=== PATIENT | male | born 1950 | race Caucasian/White ===

== ENCOUNTER → 2018-11-26 14:54 | Outpatient (POV) | payer MEDICARE, SELFPAY | PROVIDERS: Visit Provider Dermatology | DX: Z00.00 Encounter for general adult medical examination without abnormal findings (principal) ==

== ENCOUNTER → 2019-06-13 13:09 | Outpatient (CLI) | payer MEDICARE, SELFPAY | PROVIDERS: Visit Provider Emergency Medicine | DX: J11.1 Influenza due to unidentified influenza virus with other respiratory manifestations (principal) | CPT/HCPCS: 87275; 87276 ==

== ENCOUNTER → 2020-01-07 09:01 | Outpatient (CLI) | payer MEDICARE, SELFPAY ==
[2020-01-08 23:10] LABS: Covid-19 Nasal PCR Sendout Lex NEGATIVE
== END ==
PROVIDERS: Visit Provider Emergency Medicine
DX: Z03.818 Encounter for observation for suspected exposure to other biological agents ruled out (principal)
CPT/HCPCS: U0004

== ENCOUNTER 2020-01-08 07:44 | Day surgery (SDC) | payer MEDICARE, MEDICAID, SELFPAY ==
[2020-01-06 14:45] VITALS: BMI 32.7
[2020-01-08] VITALS (11 sets, daily range): BP systolic 111–167; BP diastolic 68–85; PULSE 69–87; RESP 18–20; TEMP 36.2–36.6; O2SAT 94–97
[2020-01-08 08:15] LABS: POC Glucose,Bedside 109 (70-110)
--- NOTE | 2020-01-08 08:18 | P.PN_ITS ---
[facility] [place] Anesthesia Checklist - Patient Identification Patient Identification: Arm Band, Verbal (Name & ) - Structural Data Admitted From: Home Planned Operative Procedure/s: egd/colon Consent for Planned Operative Procedure(s) Verified: Yes Verified Documents: History and Physical - NPO Status Verified Time NPO: 00:00 - Additional verifications Patient : No Anesthesia Reactions: No Hx Blood Transfusions: No Blood Transfusion Reaction: No Cephalosporin Allergy: No Previous Colonoscopy: No - Cardiovascular Assessment Heart Sounds: S1 & S2 Pulse Strength: Baseline Pulse Rhythm: Regular Peripheral Edema: No - Airway Assessment C-Spine Mobility Assessed: Yes TMJ Mobility Assessed: Yes Dentition: Good Dentition - Neurological Assessment Level of Consciousness: Awake, Alert, Appropriate Hx Seizures: No Numbness or tingling in extremities: No - Anesthesia Plan Anesthesia Risk discussed: Yes Anesthesia Plan: Verified ASA Class: III Anesthesia Type: MAC [facility] [place] History I have reviewed the patient's past medical history: Yes Medical History: Reports:: Anxiety, Chronic Obstructive Pulmonary Disease (COPD), Coronary Artery Disease, Depression, Diabetes Mellitus Type 2, Hyperlipidemia, Hypertension, Lung Disease Denies:: Cancer, Diabetes Mellitus Type 1, Internal Pacemaker, MRSA, Seizures *Have you ever received a pneumonia vaccine?: Yes *Have you received a flu vaccine this season?: No Anesthesia experience/problems:: none Laterality Cases: Right: Other Other Surgeries: Yes: Cardiac Surgery, Colonoscopy, Coronary Stent, EGD, Other. No: Pacemaker Amputation: Yes Fractures: No - *Social History Smoking Status: Current every day smoker Tobacco Type: cigarettes # Packs/Day (cigarettes): 1 #Yrs smoked (if former smoker): 50 Alcohol Intake: never Substance Use Type: denies use *Occupational Status:: disabled Housing: assisted Household Members: other *Travel in the last 8 weeks: None - Psychiatric History Pschychiatric History:: Reports:: Anxiety, Depression Family Hx:: Coronary Artery Disease
[2020-01-08 08:34] LABS: Coronavirus 19 IgG Antibody Negative (Negative); Coronavirus 19 IgM Antibody Negative (Negative)
--- NOTE | 2020-01-08 11:23 | HMH.SCOPE ---
- Procedure: Date: 01/08/20 Patient Date of :: 1950 Procedure Performed:: Esophagogastroduodenoscopy with biopsy Colonoscopy with polypectomy and biopsy Indications:: History of Dhillon's esophagus Screening colonoscopy Performing Provider:: Alexy Lopez MD Referring Provider:: . Sedation:: Monitored anesthesia care Procedure:: After informed consent was obtained the patient was taken to the endoscopy suite. Sedation ensued after the patient was transferred to the left lateral decubitus position. Pulse, blood pressure, and oxygen saturation were monitored throughout the procedure. The endoscope was advanced beyond the duodenal bulb. Retroflexion within the gastric lumen was accomplished. The gastroscope was carefully removed. Digital rectal exam revealed no significant abnormality. The colonoscope was placed in position. The entire colon was evaluated. The colonoscope was carefully removed and the patient was transferred to recovery in stable condition. Please see findings and specimens below for detail. Findings:: Sliding hiatal hernia Mild streaking gastritis Bowel preparation moderate to poor Severe lack of relaxation Sigmoid diverticulosis Large sessile plaque-like cecal lesion Multiple polyps Specimens:: Antral biopsy Biopsy of gastroesophageal junction Multiple biopsies of large sessile plaque-like cecal lesion 6 mm sessile cecal polyp (snare) Adjacent hepatic flexure polyps (x4) -(snare) Large lobulated polyp at 70 cm (snare) Cluster of polyps between 60 and 70 cm (snare) 3 large adjacent polyps around 55 cm (snare) Adjacent polyps at 45 cm (snare) Polyp at 35 cm (snare) Recommendations:: Follow-up pathology Short-term repeat colonoscopy (by gastroenterology service) versus right hemicolectomy pending results of biopsies of plaque-like cecal lesion. Complications:: No immediate Estimated blood obtained (mL): 1
--- NOTE | 2020-01-08 13:30 | XR_ITS ---
PROCEDURE: XR ACUTE ABDOMEN SERIES CLINICAL INDICATION: abdominal pain s/p colonoscopy Colonoscopy with abdominal pain COMPARISON: No exams were available for comparison FINDINGS: The study is technically limited. The bowel gas pattern is nonspecific with gas-filled loops of small and large bowel. Upright view of the abdomen shows no evidence of pneumoperitoneum. A circular calcific density is present in the right upper quadrant and may be due to artifact. IMPRESSION: Nonspecific bowel gas pattern. No evidence of pneumoperitoneum Dictated by: Juanpablo Farmer MD 01/08/2020 14:20 Juanpablo Farmer MD in [place] 01/08/2020 14:20
--- NOTE | 2020-01-08 13:43 | SUR.PHASEII ---
Report called to Rebecca Geronimo at [facility]. Radiology here to perform flat and upright.
== END 2020-01-08 14:15 | disposition home or self-care (01) ==
LOC: OUTP 07:45
PROVIDERS: PCP Emergency Medicine; Visit Provider Surgery
PROC: 0DJ08ZZ Inspection of Upper Intestinal Tract, Via Natural or Artificial Opening Endoscopic (ICD-10-PCS; CPT 43235; principal; 2020-01-08 08:30)
DX: Z12.11 Encounter for screening for malignant neoplasm of colon (principal); Z87.19 Personal history of other diseases of the digestive system; K29.60 Other gastritis without bleeding; K44.9 Diaphragmatic hernia without obstruction or gangrene; E11.9 Type 2 diabetes mellitus without complications; J44.9 Chronic obstructive pulmonary disease, unspecified; I25.10 Atherosclerotic heart disease of native coronary artery without angina pectoris; F41.9 Anxiety disorder, unspecified; F32.9 Major depressive disorder, single episode, unspecified; Z95.818 Presence of other cardiac implants and grafts; Z72.0 Tobacco use; Z79.899 Other long term (current) drug therapy
CPT/HCPCS: 43239; 45385; 74021; 82962; 86328; 88305

== ENCOUNTER → 2020-02-13 17:18 | Outpatient (CLI) | payer MEDICARE, SELFPAY | PROVIDERS: PCP Emergency Medicine; Visit Provider Emergency Medicine | DX: Z01.89 Encounter for other specified special examinations (principal); Z12.11 Encounter for screening for malignant neoplasm of colon | CPT/HCPCS: U0003 ==

== ENCOUNTER 2020-02-16 08:16 | Day surgery (SDC) | payer MEDICARE, MEDICAID, SELFPAY ==
[2020-02-16] VITALS (7 sets, daily range): BP systolic 117–150; BP diastolic 67–96; PULSE 63–87; RESP 18; TEMP 36.5–36.9; O2SAT 91–98; BMI 33.5
[2020-02-16 08:49] LABS: POC Glucose,Bedside 111 (70-110)
--- NOTE | 2020-02-16 09:04 | HMH.ANESCL ---
[facility] Anesthesia Checklist - Structural Data Admitted From: Home Planned Operative Procedure/s: colonoscopy Consent for Planned Operative Procedure(s) Verified: Yes - Additional verifications Anesthesia Reactions: No Hx Blood Transfusions: No Blood Transfusion Reaction: No - Airway Assessment C-Spine Mobility Assessed: Yes TMJ Mobility Assessed: Yes Dentition: Poor Dentition - Neurological Assessment Level of Consciousness: Awake, Alert, Appropriate - Anesthesia Plan Anesthesia Risk discussed: Yes Anesthesia Plan: Verified ASA Class: III Anesthesia Type: MAC [facility] History I have reviewed the patient's past medical history: Yes Medical History: Reports:: Anxiety, Congestive Heart Failure, Chronic Obstructive Pulmonary Disease (COPD), Coronary Artery Disease, Depression, Diabetes Mellitus Type 2, Hyperlipidemia, Hypertension, Lung Disease Denies:: Cancer, Diabetes Mellitus Type 1, Internal Pacemaker, MRSA, Seizures *Have you ever received a pneumonia vaccine?: No *Have you received a flu vaccine this season?: Yes Other Medical History: Reports: Arthritis. Denies: Blood Transfusion Reaction Anesthesia experience/problems:: none Laterality Cases: Right: Other Other Surgeries: Yes: Cardiac Surgery, Colonoscopy, Coronary Stent, EGD, Other. No: Pacemaker Amputation: Yes (right below knee) Fractures: No - *Social History Last grade of school completed: 9th or 10th Smoking Status: Current every day smoker Tobacco Type: cigarettes # Packs/Day (cigarettes): 1 #Yrs smoked (if former smoker): 50 Alcohol Intake: never Substance Use Type: denies use *Occupational Status:: disabled Housing: house Household Members: other *Travel in the last 8 weeks: None - Psychiatric History Pschychiatric History:: Reports:: Anxiety, Depression Family Hx:: Unable to obtain
--- NOTE | 2020-02-16 09:17 | HMH.PROC ---
[facility] Procedure Note Procedure Note:: Colonoscopy Procedure Report: Colonoscopy with cold snare polypectomy Endoscopist: Emmanuel Babin II, MD Referring physician: Alexy Lopez MD/Devon Poole MD Date of Procedure: February 16, 2020 Equipment: Olympus 180 variable stiffness pediatric colonoscope Sedation: MAC sedation Indication: Mr. Santana is a 69-year-old gentleman who is here for follow-up high risk surveillance colonoscopy. The patient does have a personal history of colon polyps. He did have a colonoscopy by Dr. Alexy Lopez and had a larger adenomatous colon polyps. The patient has no abdominal complaints. Procedure: Prior to the procedure, a history and physical exam was performed, and patient's medications and allergies were reviewed. The risks, benefits and alternatives of the sedation and procedure were discussed with the patient. All questions were answered and informed consent was obtained. The patient was brought to the procedure room. Patient identification and proposed procedure were verified by the physician and the nurse. The patient was placed in a left lateral decubitus position and the scope was passed under direct vision. Throughout the procedure, the patient's blood pressure, pulse, and oxygen saturations were monitored continuously. The colonoscopy was accomplished without difficulty. The patient tolerated the procedure well. Findings: On digital rectal examination there was normal rectal tone. There were no external hemorrhoids. The colonoscope was introduced through the anal canal to the rectum and advanced to the cecum. The ileocecal valve and appendiceal orifice were identified. The scope was advanced a short distance into the ileum which appeared grossly normal. The scope was then withdrawn into the colon. There were 2 large flat polyps in the cecum 1 of which was 14 mm and the other one was at least 35 mm and encompassed the ileocecal valve and over the fold and was difficult to fully visualize because it was behind the haustral fold and a portion of the valve. This was removed in piecemeal. Also, the cecum had a lot of plant residue/solid residue that made it more difficult to visualize and see this large sessile adenomatous polyp. There were 2 additional larger 12 and 15 mm polyps in the transverse colon and a 13 mm polyp in the sigmoid colon. These were also removed via cold snare polypectomy. There was mild melanosis coli. There were scattered diverticuli throughout the descending and sigmoid colon (LEFT colon). The rectum itself was normal. Upon retroflexion within the rectum there were grade 1-2 internal hemorrhoids. The preparation was fair to good throughout with [place] Preparation Score of 7 out of 9. The cecal time was 18 minutes. Impression: 1. Large/advanced sessile adenomatous polyps 2. Left-sided diverticulosis 3. Mild melanosis coli 4. Grade 1-2 internal hemorrhoids Plan: Based upon the patient's age and comorbidities, I am not convinced that he should have subtotal colectomy unless pathology shows more advanced adenomatous changes. I would instead recommend that we repeat surveillance at 3 to 6 months and see if we can completely excised the large sessile cecal polyp and improve the bowel preparation. I will discuss this with the family and possibly correction facility.
== END 2020-02-16 10:50 | disposition home or self-care (01) ==
LOC: OUTP 08:17
PROVIDERS: PCP Emergency Medicine; Visit Provider Internal Medicine Gastroenterology
PROC: 0DJD8ZZ Inspection of Lower Intestinal Tract, Via Natural or Artificial Opening Endoscopic (ICD-10-PCS; CPT 45378; principal; 2020-02-16 09:30)
DX: Z12.11 Encounter for screening for malignant neoplasm of colon (principal); Z86.010 Personal history of colon polyps; K63.5 Polyp of colon; K57.30 Diverticulosis of large intestine without perforation or abscess without bleeding; K64.0 First degree hemorrhoids; K63.89 Other specified diseases of intestine; E11.9 Type 2 diabetes mellitus without complications; I25.10 Atherosclerotic heart disease of native coronary artery without angina pectoris; J44.9 Chronic obstructive pulmonary disease, unspecified; I11.0 Hypertensive heart disease with heart failure; I50.9 Heart failure, unspecified; E78.5 Hyperlipidemia, unspecified
CPT/HCPCS: 45385; 82962; 88305

== ENCOUNTER → 2020-05-24 19:47 | Outpatient (CLI) | payer MEDICARE, MEDICAID, SELFPAY ==
[2020-05-26 12:48] LABS: Covid-19 Nasal PCR Sendout P&C POSITIVE
== END ==
PROVIDERS: PCP Emergency Medicine; Visit Provider Nurse Practitioner Family
DX: U07.1 COVID-19 (principal)
CPT/HCPCS: U0004

== ENCOUNTER → 2020-05-25 02:38 | Outpatient (CLI) | payer MEDICARE, SELFPAY | PROVIDERS: Visit Provider Emergency Medicine | DX: Z11.52 Encounter for screening for COVID-19 (principal) | CPT/HCPCS: U0004 ==

== ENCOUNTER 2020-08-13 07:34 | Day surgery (SDC) | payer MEDICARE, MEDICAID, SELFPAY ==
[2020-08-13 08:10] VITALS: BP 135/80; PULSE 72; RESP 20; TEMP 36.6; O2SAT 93; BMI 32.5
[2020-08-13 08:33] LABS: POC Glucose,Bedside 125 (70-110)
--- NOTE | 2020-08-13 08:45 | HMH.ANESCL ---
[facility] Anesthesia Checklist - Patient Identification Patient Identification: Arm Band - Structural Data Admitted From: Home Planned Operative Procedure/s: colonoscopy Consent for Planned Operative Procedure(s) Verified: Yes Verified Documents: Surgical Consent, History and Physical - NPO Status Verified Time NPO: 00:00 - Additional verifications Anesthesia Reactions: No Hx Blood Transfusions: No Blood Transfusion Reaction: No - Airway Assessment C-Spine Mobility Assessed: Yes (mp2) TMJ Mobility Assessed: Yes Dentition: Edentulous - Neurological Assessment Level of Consciousness: Awake, Alert - Anesthesia Plan Anesthesia Risk discussed: Yes Anesthesia Plan: Verified ASA Class: III Anesthesia Type: MAC [facility] History I have reviewed the patient's past medical history: Yes Medical History: Reports:: Anxiety, Congestive Heart Failure, Chronic Obstructive Pulmonary Disease (COPD), Coronary Artery Disease, Depression, Diabetes Mellitus Type 2, Hyperlipidemia, Hypertension, Lung Disease Denies:: Cancer, Diabetes Mellitus Type 1, Internal Pacemaker, MRSA, Seizures *Have you ever received a pneumonia vaccine?: Yes *Have you received a flu vaccine this season?: Yes Other Medical History: Reports: Arthritis. Denies: Blood Transfusion Reaction Anesthesia experience/problems:: nac Laterality Cases: Right: Other Other Surgeries: Yes: Cardiac Catheterization, Cardiac Surgery, Colonoscopy, Coronary Stent, EGD, Other. No: Pacemaker Amputation: Yes (right below knee) Fractures: No - *Social History Last grade of school completed: 9th or 10th Smoking Status: Current every day smoker Tobacco Type: cigarettes # Packs/Day (cigarettes): 2 #Yrs smoked (if former smoker): 50 Alcohol Intake: former Substance Use Type: denies use *Occupational Status:: disabled Housing: assisted living facility Household Members: caregiver *Travel in the last 8 weeks: None - Psychiatric History Pschychiatric History:: Reports:: Anxiety, Depression Family Hx:: Unable to obtain
[2020-08-13 08:55] VITALS: O2SAT 97
--- NOTE | 2020-08-13 09:23 | P.PCN_ITS ---
[facility] Procedure Note Procedure Note:: Colonoscopy Procedure Report: Colonoscopy with cold snare polypectomy Endoscopist: Emmanuel Babin II, MD Referring physician: Devon Poole MD Date of Procedure: August 13, 2020 Equipment: Olympus 190 variable stiffness pediatric colonoscope Sedation: MAC sedation Indication: Mr. Santana is a 70-year-old gentleman who is here for follow-up surveillance colonoscopy secondary to a personal history of advanced adenomatous colon polyps. He initially had larger polyps identified by Dr. Alexy Lopez M.D. He did have a colonoscopy with al in February 2020. The largest polyp was in the cecum and was approximately 35 or 40 mm and was over the ileocecal valve and difficult to fully visualize. The patient reports no abdominal pain, weight loss, change in his bowel habits or rectal bleeding. He reports no family history of colon cancer. Procedure: Prior to the procedure, a history and physical exam was performed, and patient's medications and allergies were reviewed. The risks, benefits and alternatives of the sedation and procedure were discussed with the patient. All questions were answered and informed consent was obtained. The patient was brought to the procedure room. Patient identification and proposed procedure were verified by the physician and the nurse. The patient was placed in a left lateral decubitus position and the scope was passed under direct vision. Throughout the procedure, the patient's blood pressure, pulse, and oxygen saturations were monitored continuously. The colonoscopy was accomplished without difficulty. The patient tolerated the procedure well. Findings: On digital rectal examination there was normal rectal tone. There were no external hemorrhoids. The colonoscope was introduced through the anal canal to the rectum and advanced to the cecum. The ileocecal valve and appendiceal orifice were identified. The scope was advanced a short distance into the ileum which appeared grossly normal. The scope was then withdrawn into the colon. There was only one very large polyp that encompassed the ileocecal valve and the majority of this polyp was visualized beyond the valve. Due to its large flat sessile nature and behind the fold in the valve, it was deemed to be a 35 to 40 mm advanced adenoma that would be very difficult to remove colonoscopically and present greater risk. There were a couple of sections removed via snare. There were 4 additional diminutive polyps (transverse x2 (4 and 5 mm) and sigmoid x2 (4 and 4 mm)) which were removed via cold snare polypectomy. There were scattered diverticuli throughout the descending and sigmoid colon (LEFT colon). The rectum itself was normal. Upon retroflexion within the rectum there were g rade 1-2 internal hemorrhoids. The preparation was excellent throughout with [place] Preparation Score of 9. The cecal time was 16 minutes. Impression: 1. Large 35 to 40 mm advanced adenomatous sessile polyp involving ileocecal valve and behind (difficult to fully visualize based upon location) 2. 4 additional diminutive colon polyps 3. Left-sided diverticulosis 4. Grade 1-2 internal hemorrhoids Plan: Based upon the size and nature of the large cecal adenomatous polyp and its advanced nature and behind fold, he will likely need resection. I would consider colorectal surgery versus attempt at endoscopic mucosal dissection (Elizabeth Walters MD) at the [place]. I will discuss with the patient and family.
[2020-08-13 09:25] VITALS: BP 146/86; PULSE 93; RESP 18; TEMP 36.8; O2SAT 92
[2020-08-13 09:35] VITALS: BP 128/84; PULSE 81; RESP 18; O2SAT 96
--- NOTE | 2020-08-13 09:35 | SUR.PHASEII ---
PT WITH SLEEP APNEA, REQUIRED O2 @ 5L/NC TO MAINTAIN SAATS. WHEN AWAKENED PT ABLE TO BREATH FULLY AND SATS MAINTAINED ON RA.
[2020-08-13 09:45] VITALS: BP 150/96; PULSE 74; RESP 18; O2SAT 93
--- NOTE | 2020-08-13 09:55 | SUR.PHASEII ---
REPORT CALLED TO VENUS MCLEOD AT [facility], VERBALIZED UNDERSTANDING OF ALL INFO,
[2020-08-13 10:15] VITALS: BP 159/86; PULSE 69; RESP 18; O2SAT 94
--- NOTE | 2020-08-13 10:15 | SUR.PHASEII ---
DR WATSON IS TO DECIDE POC AND SET UP CONSULT AT . OFFICE TO CALL [place] WHEN DECISION MADE.
== END 2020-08-13 10:18 | disposition home or self-care (01) ==
LOC: OUTP 07:36
PROVIDERS: PCP Emergency Medicine; Visit Provider Internal Medicine Gastroenterology
PROC: 0DJD8ZZ Inspection of Lower Intestinal Tract, Via Natural or Artificial Opening Endoscopic (ICD-10-PCS; CPT 45378; principal; 2020-08-13 09:00)
DX: Z12.11 Encounter for screening for malignant neoplasm of colon (principal); Z86.010 Personal history of colon polyps; K63.5 Polyp of colon; K57.30 Diverticulosis of large intestine without perforation or abscess without bleeding; K64.0 First degree hemorrhoids; E11.9 Type 2 diabetes mellitus without complications; F41.9 Anxiety disorder, unspecified; I50.9 Heart failure, unspecified; I11.0 Hypertensive heart disease with heart failure; J44.9 Chronic obstructive pulmonary disease, unspecified; I25.10 Atherosclerotic heart disease of native coronary artery without angina pectoris; F32.9 Major depressive disorder, single episode, unspecified
CPT/HCPCS: 45385; 82962; 88305

== ENCOUNTER → 2020-09-28 14:25 | Outpatient (CLI) | payer MEDICARE, MEDICAID, SELFPAY ==
[2020-09-28 14:52] LABS: Hemoglobin A1C 6.4 % (4.0-6.0)
== END ==
PROVIDERS: Visit Provider Emergency Medicine
DX: E11.9 Type 2 diabetes mellitus without complications (principal); Z79.84 Long term (current) use of oral hypoglycemic drugs
CPT/HCPCS: 36415; 83036

== ENCOUNTER → 2020-11-18 12:51 | Outpatient (CLI) | payer MEDICARE, MEDICAID, SELFPAY ==
[2020-11-18 12:53] LABS: Adenovirus F 40/41, stool Not Detected (NotDetected); Astrovirus Not Detected (NotDetected); Campylobacter Not Detected (NotDetected); Clostridium Difficile A/B, PCR Not Detected (NotDetected); Cryptosporidium Not Detected (NotDetected); Cyclospora Cayetanesis Not Detected (NotDetected); Entamoeba histolytica Not Detected (NotDetected); Enteroaggregative E coli Not Detected (NotDetected); Enteropathogenic E coli Not Detected (NotDetected); Enterotoxigenic E coli Not Detected (NotDetected); Giardia lamblia Not Detected (NotDetected); Norovirus Not Detected (NotDetected); Plesimonas Shigalloides, PCR Not Detected (NotDetected); Rotavirus A Not Detected (NotDetected); Salmonella, PCR Not Detected (NotDetected); Sapovirus Not Detected (NotDetected); Shiga-like toxin E coli Not Detected (NotDetected); Shigella Enterovasive E coli Not Detected (NotDetected); Vibrio Cholerae Not Detected (NotDetected); Vibrio, PCR Not Detected (NotDetected); Yersinia Entercolitica, PCR Not Detected (NotDetected)
== END ==
PROVIDERS: Visit Provider Emergency Medicine
DX: R19.7 Diarrhea, unspecified (principal)
CPT/HCPCS: 87506

== ENCOUNTER → 2020-11-24 18:17 | Outpatient (CLI) | payer MEDICARE, MEDICAID, SELFPAY | PROVIDERS: Visit Provider Emergency Medicine | DX: B96.89 Other specified bacterial agents as the cause of diseases classified elsewhere (principal); J41.8 Mixed simple and mucopurulent chronic bronchitis; F17.200 Nicotine dependence, unspecified, uncomplicated | CPT/HCPCS: 87070; 87077; 87186; 87205 ==

== ENCOUNTER → 2021-05-18 09:15 | Outpatient (CLI) | payer MEDICARE, MEDICAID, SELFPAY ==
--- NOTE | 2021-05-18 09:25 | XR_ITS ---
FINAL REPORT CLINICAL HISTORY: [facility]PA COMPARISON: 04/24/2018 FINDINGS: TWO VIEWS OF THE CHEST The heart is normal in size. The mediastinum is unremarkable. There are new, right greater than left pulmonary opacities consistent with bilateral pneumonia. There is no pneumothorax. IMPRESSION: Bilateral pneumonia. Reviewed, Interpreted and Dictated by Farhad Barnes III, MD Transcribed by Bri Rivera Authenticated by Farhad Barnes III, MD on 05/18/2021 10:23:47 AM [facility]
== END ==
PROVIDERS: PCP Emergency Medicine; Visit Provider Nurse Practitioner Family
DX: R06.02 Shortness of breath (principal)
CPT/HCPCS: 71046

== ENCOUNTER 2021-05-28 18:42 | Inpatient (IN) | payer MEDICARE, MEDICAID, SELFPAY ==
[2021-05-28] VITALS (9 sets, daily range): BP systolic 113–165; BP diastolic 62–91; PULSE 72–97; RESP 15–20; TEMP 37–37.1; O2SAT 94–98; BMI 25.2; BMI 25.1; BMI 27.7
--- NOTE | 2021-05-28 19:00 | CT_ITS ---
PROCEDURE INFORMATION: Exam: CT Angiography Head With Contrast, Arteriography Exam date and time: 05/28/2021 7:00 PM Age: 71 years old Clinical indication: Numbness and weakness; Additional info: Right ue numbness and weakness TECHNIQUE: Imaging protocol: Computed tomography angiography of the head with contrast. Exam focused on the arteries. 3D rendering (Not supervised by radiologist): MIP and/or 3D reconstructed images were created by the technologist. Radiation optimization: All CT scans at this facility use at least one of these dose optimization techniques: automated exposure control; mA and/or kV adjustment per patient size (includes targeted exams where dose is matched to clinical indication); or iterative reconstruction. Contrast material: ISOVUE 370; Contrast volume: 100 ml; Contrast route: INTRAVENOUS (IV); COMPARISON: CT HEAD/BRAIN WO CON 05/28/2021 8:07 PM FINDINGS: ANTERIOR CIRCULATION: Intracranial INTERNAL CAROTID arteries: Severe predominantly calcific plaque in the mid-distal ICA with chronic narrowing of the internal carotid arteries without acute flow-limiting stenosis. . MIDDLE cerebral arteries: M1, M2 and their distal visualized branches are without flow limiting stenosis. . ANTERIOR cerebral arteries: A1, A2 and their distal visualized branches are without flow limiting stenosis. Anterior communicating artery is unremarkable. . POSTERIOR CIRCULATION: VERTEBRAL arteries: Intracranial vertebral arteries and their visualized branches are without flow limiting stenosis. . BASILAR artery: The basilar artery and its visualized proximal branches are without flow limiting stenosis. . POSTERIOR cerebral arteries: P1, P2 and their distal visualized branches are without flow limiting stenosis. IMPRESSION: 1. NO acute flow-limiting stenosis or aneurysm of the CENTRAL/major intracranial arteries. 2. METASTATIC BRAIN DISEASE on unenhanced CT of the brain for which MRI of the brain without and with contrast is recommended. 3. MARKED PAUCITY OF THE M3 AND CORTICAL BRANCHES at the site of vasogenic edema in the RIGHT posterior temporoparietal and LEFT high frontoparietal lobes. THIS REPORT CONTAINS FINDINGS THAT MAY BE CRITICAL TO PATIENT CARE. The findings were acknowledged to be understood at 9:02 PM EST on 05/28/2021, by Dr. Poole
--- NOTE | 2021-05-28 19:01 | CT_ITS ---
PROCEDURE INFORMATION: Exam: CT Angiography Neck With Contrast Exam date and time: 05/28/2021 7:01 PM Age: 71 years old Clinical indication: Numbness and weakness; Additional info: Right ue weakness/numbness TECHNIQUE: Imaging protocol: Computed tomography angiography of the neck with contrast. 3D rendering (Not supervised by radiologist): MIP and/or 3D reconstructed images were created by the technologist. Radiation optimization: All CT scans at this facility use at least one of these dose optimization techniques: automated exposure control; mA and/or kV adjustment per patient size (includes targeted exams where dose is matched to clinical indication); or iterative reconstruction. Contrast material: ISOVUE 370; Contrast volume: 100 ml; Contrast route: INTRAVENOUS (IV); COMPARISON: US ARTERIAL CAROTID 02/13/2017 8:36 AM FINDINGS: THORACIC VESSELS: Atherosclerotic disease of the visualized aortic arch without aortic aneurysm or dissection. Calcific/noncalcific plaque without significant narrowing of the origin of the neck vessels. . CAROTID VESSELS: Common carotid arteries: Common carotid arteries are without flow limiting stenosis. . Cervical internal CAROTID arteries: Predominantly calcific plaque at the carotid bifurcation extending to the carotid bulb with 70-80% narrowing of the RIGHT carotid bulb and greater than 95% focal narrowing at the origin of the LEFT internal carotid artery. No evidence of an aneurysm or a dissection. . VERTEBRAL VESSELS: VERTEBRAL arteries: Cervical vertebral arteries are without flow limiting stenosis. . OTHER STRUCTURES: Incompletely visualized moderate pericardial effusion. Malignant RIGHT hilar lung mass, enlarged metastatic mediastinal/hilar lymph nodes, post obstructive atelectasis, consolidation in the RIGHT lung and RIGHT hemothorax. Underlying severe emphysema and scarring in the lungs. T5 vertebral compression fracture-pathological versus insufficiency. IMPRESSION: 1. Greater than 95% focal narrowing at the origin of the LEFT internal carotid artery due to complex calcific and noncalcific plaque. 2. 70-80% focal chronic narrowing of the RIGHT carotid bulb due to calcific plaque. 3. NO acute flow-limiting stenosis of the vertebral arteries in the neck. 4. Incompletely visualized MODERATE PERICARDIAL EFFUSION. 5. MALIGNANT RIGHT HILAR LUNG MASS, enlarged metastatic mediastinal/hilar lymph nodes, post obstructive atelectasis, consolidation in the RIGHT lung and RIGHT hemothorax. 6. T5 vertebral compression fracture-pathological versus insufficiency. REFERENCES: NASCET CRITERIA. The degree of internal carotid artery stenosis is based on NASCET criteria. Normal is no stenosis. Mild is less than 50% stenosis. Moderate is 50-69% stenosis. Severe is 70% to 99% stenosis. Total occlusion is no detectable patent lumen.
--- NOTE | 2021-05-28 19:01 | CT_ITS ---
PROCEDURE INFORMATION: Exam: CT Head Without Contrast Exam date and time: 05/28/2021 7:01 PM Age: 71 years old Clinical indication: Weakness, extremity; Right; Additional info: Right ue weakness/numbness TECHNIQUE: Imaging protocol: Computed tomography of the head without contrast. Radiation optimization: All CT scans at this facility use at least one of these dose optimization techniques: automated exposure control; mA and/or kV adjustment per patient size (includes targeted exams where dose is matched to clinical indication); or iterative reconstruction. Other technique: STROKE PROTOCOL was implemented. COMPARISON: No relevant prior studies available. FINDINGS: Vasogenic edema in the RIGHT posterior temporoparietal and LEFT high frontoparietal subcortical white matter with a isodense nodule measuring approximately 1.6 cm on the LEFT and questionable 1.7 cm nodule on the RIGHT. Mild mass effect with attenuation of adjacent sulci without midline shift. . Questionable similar changes in the LEFT inferior cerebellar hemisphere suboptimally visualized due to streak artifact. Underlying chronic microvascular ischemic disease and generalized atrophy. . Rest of the brain parenchyma, ventricles, sulci and basal cisterns are unremarkable. No significant mucoperiosteal thickening in the visualized paranasal sinuses. No mastoid effusion. Macro deviated LEFT. IMPRESSION: Findings consistent with METASTATIC DISEASE. Recommend contrast CT or MRI for further evaluation. ASSESSMENT: ASPECTS ([place] Stroke Program Early CT Score) is 10.
--- NOTE | 2021-05-28 19:05 | HMH.EDGENADL ---
ED Disposition Clinical Impression: Metastatic lung cancer (metastasis from lung to other site), Brain metastases, Carotid stenosis, bilateral, Pericardial effusion Disposition: Admitted As Inpatient Condition on Discharge: Fair - Critical Care Critical Care Time: No Attestation: On 05/28/21, the high probability of a clinically significant, sudden or life threatening deterioration of the following system(s) required my full and direct attention, intervention and personal management. The time I documented below is in addition to time spent performing reported procedures but includes the following listed in this critical care notation. Medical Decision Making - Juan Inquiry Pt receiving controlled substance: No Vital Signs: 05/28/21 18:57 Temperature 98.6 F Temperature Source Oral Pulse Rate [Left Radial] 94 H Respiratory Rate 20 Blood Pressure [Right Arm] 131/85 Blood Pressure Mean [Right Arm] 100 Blood Pressure Source [Right Arm] Automatic Cuff Blood Pressure Position [Right Arm] Sitting 02 Sat by Pulse Oximetry 95 Oxygen Delivery Method Room Air - Lab Data Lab Results 05/28/21 19:00: WBC 20.5 H*, RBC 4.79, Hgb 13.8 L, Hct 42.5, MCV 88.7, MCH 28.8, MCHC 32.5, RDW 15.2, Plt Count 337, MPV 9.1, Neut % (Auto) 78.8, Lymph % (Auto) 9.7 L, Luce % (Auto) 9.2, Eos % (Auto) 1.9, Baso % (Auto) 0.5, Neut # (Auto) 16.2 H, Lymph # (Auto) 2.0, Luce # (Auto) 1.9 H, Eos # (Auto) 0.4, Baso # (Auto) 0.1, Total Counted 100, Neutrophils % (Manual) 82 H, Band Neutrophils % 5.0, Lymphocytes % (Manual) 10, Monocytes % (Manual) 2, Eosinophils % (Manual) 1, Platelet Estimate Normal, RBC Morphology Normal 05/28/21 19:00: PT 12.4, INR 1.11 H, APTT 27.9 05/28/21 19:00: Sodium 131 L, Potassium 4.1, Chloride 99, Carbon Dioxide 19 L, Anion Gap 17.1 H, BUN 18, Creatinine 0.90, Estimated Creat Clear 76, Estimated GFR 83, Est GFR ( Amer) 100, Glucose 125 H, Calcium 9.0, Total Bilirubin 0.6, AST 21, ALT 19, Alkaline Phosphatase 63, Troponin I 0.02, Total Protein 7.3, Albumin 3.7, Globulin 3.6 H, Albumin/Globulin Ratio 1.0 L 05/28/21 19:07: POC Glucose 128 H 05/28/21 19:42: SARS-CoV-2 (PCR) Not detected, Influenza A Untype (PCR) Not detected, Influenza Type B (PCR) Not detected 05/28/21 20:45: Urine Color Yellow, Urine Appearance Clear, Urine pH 5.5, Ur Specific [place] 1.015, Urine Protein 1+, Urine Glucose (UA) Negative, Urine Ketones 1+, Urine Blood Negative, Urine Nitrate Negative, Urine Bilirubin 1+ A, Urine Urobilinogen 1.0, Ur Leukocyte Esterase Negative, Urine RBC Occasional, Urine WBC Occasional, Ur Squamous Epith Cells None, Urine Bacteria Trace 05/28/21 20:50: Lactate 1.5 Result diagrams: 05/28/21 19:00 05/28/21 19:00 Orders (Tests/Meds): ED MEDICATIONS Generic Name Dose Route Start Last Admin Trade Name Aminata PRN Reason Stop Dose Admin Miscellaneous 1 each 05/28/21 19:00 Consider Pt For Statin At Discharge-Stroke NOTAPPLIC 06/27/21 18:59 NEEDED PRN Reminder for med @discharge Sodium Chloride 10 ml 05/28/21 20:48 05/28/21 20:49 Sodium Chloride 0.9% 10ml Syr (Rad Only) IV 06/27/21 20:47 10 ml NEEDED PRN Administration Maintain IV Site Discontinued Medications Generic Name Dose Route Start Last Admin Trade Name Aminata PRN Reason Stop Dose Admin Dexamethasone Sodium Phosphate 10 mg 05/28/21 21:05 05/28/21 21:48 Dexamethasone 4mg/Ml 5ml Mdv IV 05/28/21 21:06 10 mg ONCE ONE Administration Iopamidol 100 ml 05/28/21 20:48 05/28/21 20:49 Iopamidol-370 (76%);100ml Bottle IV 05/28/21 20:49 100 ml ONCE ONE Administration Sodium Chloride 40 ml 05/28/21 20:48 05/28/21 20:49 0.9 % Sodium Chloride 50 Ml Vial IV 05/28/21 20:49 40 ml ONCE ONE Administration ORDERS Category Date Time Status Troponin I Q3H Lab 05/29/21 01:15 Ordered Blood Culture Stat Micro 05/28/21 20:50 Received Medical Decision Narrative: ddx includes but not limited to acs, lv
[2021-05-28 19:14] LABS: POC Glucose,Bedside 128 (70-110)
[2021-05-28 19:23] LABS: Basophils # 0.1 K/mm3 (0-0.2); Basophils % 0.5 % (0.1-2.0); Eosinophils # 0.4 K/mm3 (0.0-0.4); Eosinophils % 1.9 % (0.1-12.0); Hematocrit 42.5 % (42.0-52.0); Hemoglobin 13.8 g/dL (14.1-18.0); Lymphocytes % 9.7 % (10-50); Mean Corpuscular HGB Conc 32.5 g/dL (31.8-35.4); Mean Corpuscular Hemoglobin 28.8 pg (27.0-31.2); Mean Corpuscular Volume 88.7 fl (80-94); Mean Platelet Volume 9.1 fl (7.4-10.4); Monocytes # 1.9 K/mm3 (0.1-1.0); Monocytes % 9.2 % (1.7-9.3); Neutrophils # 16.2 K/mm3 (1.8-7.8); Neutrophils % 78.8 % (37.0-80.0); Platelet Count 337 K/mm3 (142-424); Red Blood Count 4.79 M/mm3 (4.60-6.20); Red Cell Distribution Width 15.2 % (11.5-17.5); White Blood Count 20.5 K/mm3 (4.8-10.8)
[2021-05-28 19:25] LABS: Chloride 99 mmol/L (98-107); Potassium 4.1 mmoL/L (3.5-5.1); Sodium 131 mmol/L (136-145)
[2021-05-28 19:27] LABS: Alanine Aminotransferase 19 U/L (12-78); Aspartate Amino Transferase 21 U/L (17-59); Bilirubin,Total 0.6 mg/dl (0.2-1.3); Blood Urea Nitrogen 18 mg/dl (9-20); Creatinine Clearance Estimated 76 mL/min (50-200); Estimated Glomerular Filt Rate 83 ml/min (>60); GFR (African American) 100 ML/MIN (>60); MANUAL DIFFERENTIAL MANUAL DIFFERENTIAL (MANUAL DIFF)
[2021-05-28 19:28] LABS: Albumin Level 3.7 g/dl (3.5-5.0); Alkaline Phosphatase 63 U/L (38-126); Anion Gap 17.1 mEq/L (5-15); Carbon Dioxide 19 mmol/L (22.0-30.0); Globulin 3.6 g/dL (1.3-3.2); Glucose 125 mg/dl (74-100); Total Protein,Serum 7.3 g/dl (6.3-8.2)
[2021-05-28 19:31] LABS: Activated Partial Thrombo Time 27.9 seconds (22.8-30.6); INR 1.11 (0.9-1.1); Prothrombin Time 12.4 seconds (10.1-12.5)
[2021-05-28 19:40] LABS: Troponin I 0.02 ng/ml (0.00-0.034)
[2021-05-28 19:52] LABS: Coronavirus 19, PCR Not Detected (NotDetected); Influenza A, PCR Not Detected (NotDetected); Influenza B, PCR Not Detected (NotDetected)
[2021-05-28 20:16] LABS: Eosinophils % 1 % (0-3); Lymphocytes % 10 % (10-50); Monocytes % 2 % (2-9); Neutrophils % 82 % (42-76); Platelet Estimate Normal; RBC Morphology Normal; Total Cells Counted 100
--- NOTE | 2021-05-28 20:49 | XR_ITS ---
PROCEDURE INFORMATION: Exam: XR Chest Exam date and time: 05/28/2021 8:49 PM Age: 71 years old Clinical indication: Shortness of breath; Patient HX: HX lung cancer; Additional info: SOB TECHNIQUE: Imaging protocol: XR of the chest. Views: 1 view. COMPARISON: CR XR CHEST 2V 05/18/2021 9:34 AM FINDINGS: Lungs: Subpleural airspace opacity in the RIGHT lower lobe consistent with patient's history of lung malignancy. Also noted are patchy areas of airspace opacities in the LEFT lower lobe and RIGHT lung apex. Severe emphysema with bullous changes in the LEFT upper lobe. Pleural spaces: Small to moderate RIGHT pleural effusion. Heart/Mediastinum: Cardiomegaly with pulmonary vascular congestion. Bones/joints: Chronic degenerative changes in the visualized spine and shoulder joint(s). IMPRESSION: 1. Subpleural airspace opacity in the RIGHT lower lobe consistent with patient's history of lung malignancy. 2. Also noted are patchy areas of airspace opacities in the LEFT lower lobe and RIGHT lung apex. 3. Severe emphysema with bullous changes in the LEFT upper lobe. 4. Small to moderate RIGHT pleural effusion.
[2021-05-28 21:03] LABS: Microscopic, Urine URINE MICROSCOPIC (MICROSCOPIC)
--- NOTE | 2021-05-28 21:13 | PC.NURSE ---
Dr. Alonso s[facility]w [facility]
[2021-05-28 21:24] LABS: Appearance,Urine CLEAR (Clear); Blood, Urine Negative (Negative); Color,Urine YELLOW (Yellow); Glucose,Urine (UA) Negative (Negative); Ketones,Urine 1+ (Negative); Leukocyte Esterase,Urine Negative (Negative); Nitrate,Urine Negative (Negative); PH,Urine 5.5 (5.0-8.5); Protein,Urine 1+ (Negative); Specific Gravity, Urine 1.015 (1.005-1.030)
--- NOTE | 2021-05-28 21:26 | PC.NURSE ---
dr brito on phone with dr haskins. pt is listed to waiting list
[2021-05-28 21:27] LABS: Lactic Acid 1.5 mmol/L (0.7-2.1)
[2021-05-28 21:33] LABS: Bilirubin,Urine 1+ (Negative)
[2021-05-28 21:35] LABS: Bacteria,Urine Trace /lpf; RBC,Urine Occasional #/hpf (0-3); WBC,Urine Occasional #/hpf (0-3)
--- NOTE | 2021-05-28 21:55 | PC.NURSE ---
Dr. Poole s/w 3 family members and POA regarding pt's dx and condition. Discussed code status. At this time family is opting for full code. Dr. Poole with this RN spent 20 min discussing pt with family.
[2021-05-29] VITALS: BP 132/85; PULSE 90; RESP 24; TEMP 36.3; O2SAT 95; BMI 27.0
[2021-05-29 04:00] VITALS: BP 117/72; PULSE 90; RESP 22; TEMP 36.4; O2SAT 95
[2021-05-29 05:40] LABS: POC Glucose,Bedside 169 (70-110)
[2021-05-29 06:33] LABS: Basophils % 0.2 % (0.1-2.0); Eosinophils % 0.1 % (0.1-12.0); Hematocrit 40.7 % (42.0-52.0); Lymphocytes # 0.8 K/mm3 (0.7-4.5); Lymphocytes % 5.6 % (10-50); Mean Corpuscular HGB Conc 31.9 g/dL (31.8-35.4); Mean Corpuscular Hemoglobin 28.4 pg (27.0-31.2); Mean Corpuscular Volume 89.1 fl (80-94); Mean Platelet Volume 8.8 fl (7.4-10.4); Monocytes # 0.5 K/mm3 (0.1-1.0); Monocytes % 3.3 % (1.7-9.3); Neutrophils # 13.3 K/mm3 (1.8-7.8); Neutrophils % 90.8 % (37.0-80.0); Platelet Count 271 K/mm3 (142-424); Red Blood Count 4.56 M/mm3 (4.60-6.20); White Blood Count 14.6 K/mm3 (4.8-10.8)
[2021-05-29 06:36] LABS: MANUAL DIFFERENTIAL MANUAL DIFFERENTIAL (MANUAL DIFF)
[2021-05-29 06:52] LABS: Anion Gap 16.2 mEq/L (5-15); Blood Urea Nitrogen 17 mg/dl (9-20); Calcium 8.8 mg/dl (8.4-10.2); Carbon Dioxide 20 mmol/L (22.0-30.0); Chloride 100 mmol/L (98-107); Creatinine Clearance Estimated 82 mL/min (50-200); Estimated Glomerular Filt Rate 111 ml/min (>60); GFR (African American) 134 ML/MIN (>60); Glucose 157 mg/dl (74-100); Magnesium 1.4 mg/dl (1.6-2.3); Potassium 4.2 mmoL/L (3.5-5.1); Sodium 132 mmol/L (136-145)
[2021-05-29 07:58] VITALS: BP 132/91; PULSE 96; RESP 20; TEMP 36.4; O2SAT 96
[2021-05-29 08:43] LABS: Lymphocytes % 5 % (10-50); Monocytes % 3 % (2-9); Neutrophils % 92 % (42-76); Platelet Estimate Normal; RBC Morphology Normal; Total Cells Counted 100
--- NOTE | 2021-05-29 09:10 | HMH.HPDC ---
General - General Admission date:: 05/28/21 Discharge date: 05/29/21 *Admission Date: 05/28/21 *Chief complaint: possible cva *History of present illness: this pt who lives at home and had prev been in [facility] with hx of lung cancer in past - pt with altered mental status and dec use of rt upper ext - pt has not felt well over the last week with dec activity and po intake -pt was seen in the ed -71 yo male w/ hx CAD s/p PCI, carotid artery stenosis, DM, HTN, HLD, right BKA, schizophrenia, dementia, presents for right sided weakness and numbness. LKN 1100 on 05/28/21. Limited history from patient 2/ AMS. Denies any pain. Motions that right hand is weak. Reportedly EMS called to patient's residence after ex- noticed patient right arm weak and numb. No other family at bedside to provide further history. Kiera (ex- of pt) called but no answer on phone. Jhonatan (daughter of Kiera) said patient facial droop is new and right arm weakness is new. No history of strokes dx includes but not limited to acs, lvo, ich, metastasis. presents with altered mental status, rue motor/sensory deficit. protecting airway. wbc 20k. ct head shows bilateral cerebral nodules w/ vasogenic edema concerning for metastatic lesions. no midline shift. cta h/n with >95% narrowing of left carotid artery, 70-80% narrowing of right carotid artery. given 10 mg decadron in ed. cxr shows findings consistent with right lung malignancy. spoke with jhonatan (daughter of exwife) and kiera (exwife of pt who is primary director machine of pt) who gave me Rudy's contact info (brother of pt) who i tried to reach out to but did not answer telephone. jhonatan and kiera en route to [facility] ed. spoke with joanne duarte at regarding transfer for metastatic cancer evaluation and treatment, he accepted patient but on divert, no beds. plan to admit patient to [facility] pending availability for transfer to . spoke with dr. fitzpatrick and pt admitted in stable condition. pt admitted for iv steroids and supportive care - discussed with family- [facility] History I have reviewed the patient's past medical history: Yes Medical History: Reports:: Anxiety, Cancer (lung), Congestive Heart Failure, Chronic Obstructive Pulmonary Disease (COPD), Coronary Artery Disease, Depression, Diabetes Mellitus Type 2, Hyperlipidemia, Hypertension, Lung Disease Denies:: Diabetes Mellitus Type 1, Internal Pacemaker, MRSA, Seizures *Have you ever received a pneumonia vaccine?: No *Have you received a flu vaccine this season?: No Other Medical History: Reports: Arthritis. Denies: Blood Transfusion Reaction Laterality Cases: Right: Other Other Surgeries: Yes: Cardiac Catheterization, Cardiac Surgery, Colonoscopy, Coronary Stent, EGD, Other. No: Pacemaker Amputation: Yes (right below knee) Fractures: No - *Social History Smoking Status: Former smoker Tobacco Type: cigarettes # Packs/Day (cigarettes): 1 #Yrs smoked (if former smoker): 50 Alcohol Intake: never Substance Use Type: denies use *Occupational Status:: disabled Housing: house Household Members: children *Travel in the last 8 weeks: None - Psychiatric History Pschychiatric History:: Reports:: Anxiety, Depression Family Hx:: Coronary Artery Disease Review of Systems - Review of Systems Review of systems:: other (obtained from family) - Constitutional Denies fever(s) - Eyes Denies change in vision - ENT Denies headache(s) - *Cardiovascular Denies chest pain at rest, Denies shortness of breath - *Respiratory Denies cough - *Gastrointestinal Denies abdominal pain - *Genitourinary Denies blood in urine - *Musculoskeletal Denies back pain - Integumentary/Breasts Denies rash - *Neurologic Reports localized weakness, Reports other (dec use rt upper ext ), Denies seizure-like activity - Psychiatric Reports behavioral changes Exam Vital signs and Labs for Last 24 Hours: Temp Pulse Resp BP Pulse Ox 97.5 F L 96 H 20 132/91 H 96 05/29/21 07:58
[2021-05-29 11:31] LABS: POC Glucose,Bedside 132 (70-110)
[2021-05-29 11:35] VITALS: BP 117/87; PULSE 89; RESP 25; TEMP 36.4; O2SAT 94
--- NOTE | 2021-05-29 13:31 | PC.NURSE ---
PT IS SITTING UP IN THE BED WITH FAMILY AT BEDSIDE. ALERT TO SELF ONLY. PT TRIES TO COMMUNICATE HOWEVER SPEECH IS VERY GARBLES
--- NOTE | 2021-05-29 13:37 | PC.NURSE ---
PT IS SITTING UP IN THE BED WITH FAMILY AT BEDSIDE. ALERT TO SELF ONLY. PT TRIES TO COMMUNICATE HOWEVER SPEECH IS VERY GARBLED AND DIFFICULT TO UNDERSTAND. PT WAS MEDICATED PER MAR WITH ATIVAN AT 1255 FOR AGITATION. LUNG SOUNDS CLEAR. ABDOMEN SOFT/NON TENDER WITH ACTIVE BOWEL SOUNDS. RT SIDED FACIAL DROOP NOTED. SEVERE RT SIDED WEAKNESS. RBKA. ACCORDING TO FAMILY AT BEDSIDE PT IS USUALLY VERY TALKATIVE AND INDEPENDENT AT HOME. WILL CONTINUE TO MONITOR.
--- NOTE | 2021-05-29 14:31 | HMH.PHAVTE ---
[facility] Pharmacy VTE Monitoring - Patient Demographics Admission date: 05/28/21 Report Date: 05/29/21 Time: 14:31 Allergies/Adverse Reactions: Patient Allergies No Known Allergies Allergy (Verified 05/18/21 08:41) Height: 1.8 m Weight: 87.589 kg Patient Problems: Current Active Problems Metastatic lung cancer (metastasis from lung to other site) (Acute) Brain metastases (Acute) Carotid stenosis, bilateral (Acute) Pericardial effusion (Acute) History of right below knee amputation (Chronic) Diabetes type 2, controlled (Chronic) Schizophrenia (Chronic) Chronic obstruct airways disease (Chronic) Tobacco dependence syndrome (Chronic) Carotid artery stenosis (Chronic) Hyperlipidemia (Chronic) Coronary arteriosclerosis (Chronic) - VTE Risk Labs: VTE Related Lab Results Hgb 13.0 g/dL (14.1-18.0) L 05/29/21 05:20 Hct 40.7 % (42.0-52.0) L 05/29/21 05:20 Plt Count 271 K/mm3 (142-424) 05/29/21 05:20 PT 12.4 seconds (10.1-12.5) 05/28/21 19:00 INR 1.11 (0.9-1.1) H 05/28/21 19:00 APTT 27.9 seconds (22.8-30.6) 05/28/21 19:00 BUN 17 mg/dl (9-20) 05/29/21 05:20 Creatinine 0.70 mg/dl (0.66-1.25) D 05/29/21 05:20 Estimated Creat Clear 82 mL/min (50-200) 05/29/21 05:20 - Prophylaxis VTE Prophylaxis Ordered?: Yes Types of VTE Prophylaxis: TEDS Knee High, Pharmacological Location of Applied Device: Bilateral Lower Extremeties Pharmacologic Type: Enoxaparin
[2021-05-29 16:00] VITALS: BP 141/98; PULSE 111; RESP 24; TEMP 36.4; O2SAT 97
[2021-05-29 16:44] LABS: POC Glucose,Bedside 108 (70-110)
[2021-05-29 20:00] VITALS: BP 145/91; PULSE 88; RESP 25; TEMP 36.6; O2SAT 94; O2SAT 95
[2021-05-29 20:19] LABS: POC Glucose,Bedside 132 (70-110)
[2021-05-30] VITALS (10 sets, daily range): BP systolic 109–149; BP diastolic 75–93; PULSE 70–110; RESP 20–25; TEMP 36.1–36.5; O2SAT 93–98; BMI 26.9; BMI 26.8
[2021-05-30 05:28] LABS: POC Glucose,Bedside 125 (70-110)
--- NOTE | 2021-05-30 09:00 | CT_ITS ---
FINAL REPORT TECHNIQUE: Axial CT images were performed through the head. Coronal reformatted images were submitted. This study was performed with techniques to keep radiation doses as low as reasonably achievable (ALARA). Individualized dose reduction techniques using automated exposure control or adjustment of mA and/or kV according to the patient's size were employed. CLINICAL HISTORY: vasogenic edema COMPARISON: 05/29/2019 FINDINGS: There is an area of abnormal attenuation in the posterior right temporal lobe which may be related to vasogenic edema seen on image 34 of series 7. A larger region of abnormal decreased attenuation is seen in the superior left parietal lobe which may represent vasogenic or cytotoxic edema as well as a questionable region of decreased attenuation in the inferior left cerebellar hemisphere on image 17 of series 7 which are unchanged from prior exam. However, there is also abnormal attenuation in the high left parietal lobe, which is more evident than prior exam, which could represent component of evolving infarct. IMPRESSION: Multiple intra-axial abnormalities as above. Given apparent mixed vasogenic and cytotoxic edema, a pre-and post infused MRI to include diffusion-weighted imaging is highly recommended for further characterization. Reviewed, Interpreted and Dictated by Harish Kumar MD Transcribed by Kylie Grier Authenticated by Harish Kumar MD on 05/30/2021 10:50:09 AM [facility]
--- NOTE | 2021-05-30 09:55 | HMH.ACPN2 ---
Internal Medicine - PN: Subj *Date: 05/30/21 *Time: 12:10 Interval history: called [facility] after ct scan repeated spoke with dr abernathy discussed pt condition and new ct results. she stated at this time still no intervention or different treatment. she recommended mri brain with and without. Exam Vital signs and Labs for Last 24 Hours: Temp Pulse Resp BP Pulse Ox 97.7 F 77 25 H 138/86 98 05/30/21 04:00 05/30/21 04:00 05/30/21 04:00 05/30/21 04:00 05/30/21 04:00 Laboratory Results - last 24 hr 05/29/21 11:20: POC Glucose 132 H 05/29/21 16:32: POC Glucose 108 05/29/21 20:05: POC Glucose 132 H 05/30/21 05:12: POC Glucose 125 H I & O for Last 24 hours: Intake & Output 05/27/21 05/28/21 05/29/21 05/30/21 11:59 11:59 11:59 11:59 Intake Total 180 / 180 Output Total 950 / 950 Balance -770 / -770 Weight 193 lb 1.6 oz 192 lb 3.889 oz - Constitutional no acute distress - *Routine HEENT Exam Head: Present: normocephalic Eye: Present: PERRL ENT: Present: mucous membranes moist - *Routine Neck Exam Present: supple. Absent: lymphadenopathy - *Routine Respiratory Exam Present: CTA bilaterally - *Routine Cardiovascular Exam Present: RRR - *Routine Abdominal Exam Present: soft, normoactive bowel sounds. Absent: tenderness - *Routine Extremities Exam Present: amputation - *Routine Skin Exam Present: warm. Absent: rash - *Routine Neurological Exam Present: altered mental status slurred speech and rt sided weakness Assessment and Plan (1) Brain metastases Status: Acute Category: Medical Code(s): C79.31 - Secondary malignant neoplasm of brain (2) Carotid stenosis, bilateral Status: Acute Category: Medical Code(s): I65.23 - Occlusion and stenosis of bilateral carotid arteries (3) Metastatic lung cancer (metastasis from lung to other site) Status: Acute Category: Medical Code(s): C34.90 - Malignant neoplasm of unspecified part of unspecified bronchus or lung (4) Pericardial effusion Status: Acute Category: Medical Code(s): I31.3 - Pericardial effusion (noninflammatory) (5) Carotid artery stenosis Status: Chronic Qualifiers: Laterality: unspecified laterality Qualified Code(s): I65.29 - Occlusion and stenosis of unspecified carotid artery Category: Medical Code(s): I65.29 - Occlusion and stenosis of unspecified carotid artery (6) Chronic obstruct airways disease Status: Chronic Qualifiers: COPD type: chronic bronchitis Chronic bronchitis type: mixed simple and mucopurulent Qualified Code(s): J41.8 - Mixed simple and mucopurulent chronic bronchitis Category: Medical Code(s): J44.9 - Chronic obstructive pulmonary disease, unspecified (7) Coronary arteriosclerosis Status: Chronic Category: Medical Code(s): I25.10 - Atherosclerotic heart disease of [place] coronary artery without angina pectoris (8) Diabetes type 2, controlled Status: Chronic Qualifiers: Diabetes mellitus termite treater insulin use: without termite treater use Diabetes mellitus complication status: with circulatory complication Diabetes mellitus complication detail: with other circulatory complications Qualified Code(s): E11.59 - Type 2 diabetes mellitus with other circulatory complications Category: Medical Code(s): E11.9 - Type 2 diabetes mellitus without complications (9) History of right below knee amputation Status: Chronic Category: Surgical Code(s): Z89.511 - Acquired absence of right leg below knee (10) Hyperlipidemia Status: Chronic Qualifiers: Hyperlipidemia type: mixed hyperlipidemia Qualified Code(s): E78.2 - Mixed hyperlipidemia Category: Medical Code(s): E78.5 - Hyperlipidemia, unspecified (11) Schizophrenia Status: Chronic Qualifiers: Schizophrenia type: unspecified Qualified Code(s): F20.9 - Schizophrenia, unspecified Category: Medical Code(s): F20.9 - Schizophrenia, unspecifi
[2021-05-30 11:27] LABS: POC Glucose,Bedside 146 (70-110)
--- NOTE | 2021-05-30 13:06 | CA_ITS ---
APPROVED REPORT EXAM: Comprehensive 2D, Doppler, and color-flow Echocardiogram Printing Screen Assembler: INGRID Griffith, RVS Ht: 5 ft 10 in Wt: 192lbs BSA: 2.05 BP: 137/88 mmHg Rhythm: Atrial Fibrillation Indications: CVA, Lung CA, CAD, MARC, HTN, HLD, DM, AMS Echo Enhancing Agent Comments: Extremely Limited acoustic windows with lung interference and combative patient RLD/supine position. 2D Dimensions IVSd 1.39 cm LVEF (Visual) 45.70 % PWd 1.04 cm LV Volume 152.60 mL LVDd 4.79 cm LV Volume Index 74.675880 mL/m2 M: 34 - 74 LVDs 3.70 cm Aortic Root 2.99 cm Left Atrium 4.41 cm LVOT 1.95 cm (M/F) 1.5-2.5 M-Mode Dimensions LA Diam 3.97 cm (1.9-4.0) Ao Diam 3.71 cm (2.0-3.7) EPSs 1.24 cm TAPSE 1.56 (<1.7) LV Diastology E Decel Time 223.00 (160-240 msec) E/A Ratio 0.56 MED E' 4.90 (< 7 cm/sec) MED A' 9.80 cm/s E'/MED E' Ratio 8.96 (>14) LAT E' 7.70 (<10 cm/sec) LAT A' 12.50 cm/s E/LAT E' Ratio 5.70 (>14) Aortic Valve LVOT Max 62.00 (70-110 cm/s) LVOT VTI 10.09 cm AoV Peak Henry. 142.00 (50-130 cm/s) AO Peak GR. 8.10 mmHg AO Mean GR. 4.30 (<5 mmHg) AO VTI 22.15 (18-25 cm) JACQUI (VTI) 1.36 (2.5-4.5 cm2) Mitral Valve MV A Velocity 79.00 (40-130 cm/s) E/A Ratio 0.56 MV Decel. Time 223.00 (160-240 ms) Pulmonary Valve PV Peak Velocity 83.00 (50-150 cm/s) Left Ventricle Technically very difficult and poor study, left atrium is mildly enlarged, left ventricle is normal size, visually estimated ejection fraction probably 45%, inferior wall appears to be hypokinetic, endocardial surfaces are very poorly visualized, diastolic parameters are inconclusive. Right Ventricle Right atrium and right ventricle is mildly enlarged, contractility of the right ventricle appears to be normal. Aortic Valve Aortic valve is minimally thickened and calcified, there is no aortic stenosis. Mitral Valve Mitral valve is grossly normal, there is trace mitral regurgitation. Tricuspid Valve Tricuspid valve is poorly visualized. Pulmonic Valve Pulmonic valve is poorly visualized. Great Vessels Aortic root is normal size. Inferior vena cava is dilated without significant inspiratory collapse. Pericardium There is moderate sized pericardial effusion noted, Doppler is suboptimal, possibility of tamponade physiology cannot be excluded. Conclusion 1. Technically very difficult and poor study, endocardial surface a very poorly visualized, visually estimated ejection fraction approximately 45% with segmental wall motion abnormality described above. Diastolic parameters are inconclusive. 2. Valvular structures are poorly visualized in the study. 3. Moderate size circumferential pericardial effusion noted, tamponade physiology cannot be excluded based on this study, clinical correlation is recommended. 4. A follow-up repeat echocardiogram with better Doppler technique is recommended. Electronically signed by : Adria Sher MD 05/30/2021 17:52:26
[2021-05-30 13:19] LABS: Basophils % 0.1 % (0.1-2.0); Chloride 101 mmol/L (98-107); Eosinophils # 0.1 K/mm3 (0.0-0.4); Eosinophils % 0.4 % (0.1-12.0); Hematocrit 41.3 % (42.0-52.0); Hemoglobin 13.5 g/dL (14.1-18.0); Lymphocytes # 0.8 K/mm3 (0.7-4.5); Lymphocytes % 4.8 % (10-50); Mean Corpuscular HGB Conc 32.8 g/dL (31.8-35.4); Mean Corpuscular Hemoglobin 29.4 pg (27.0-31.2); Mean Corpuscular Volume 89.9 fl (80-94); Mean Platelet Volume 8.6 fl (7.4-10.4); Monocytes # 0.7 K/mm3 (0.1-1.0); Monocytes % 4.4 % (1.7-9.3); Neutrophils % 90.4 % (37.0-80.0); Platelet Count 289 K/mm3 (142-424); Potassium 4.4 mmoL/L (3.5-5.1); Red Cell Distribution Width 15.3 % (11.5-17.5); Sodium 134 mmol/L (136-145); White Blood Count 16.6 K/mm3 (4.8-10.8)
[2021-05-30 13:22] LABS: Anion Gap 15.4 mEq/L (5-15); Blood Urea Nitrogen 21 mg/dl (9-20); Carbon Dioxide 22 mmol/L (22.0-30.0); Creatinine Clearance Estimated 81 mL/min (50-200); Estimated Glomerular Filt Rate 95 ml/min (>60); GFR (African American) 115 ML/MIN (>60)
[2021-05-30 13:23] LABS: Calcium 8.7 mg/dl (8.4-10.2); Glucose 183 mg/dl (74-100); MANUAL DIFFERENTIAL MANUAL DIFFERENTIAL (MANUAL DIFF)
[2021-05-30 14:11] LABS: Lymphocytes % 8 % (10-50); Neutrophils % 92 % (42-76); Platelet Estimate Normal; RBC Morphology Normal; Total Cells Counted 100
--- NOTE | 2021-05-30 14:17 | MR_ITS ---
FINAL REPORT CLINICAL HISTORY: POSSIBLE CVA, BEST IMAGES POSSIBLE, PT WAS VERY ALTERED AND GIVEN ATIVAN PRIOR TO SCAN FINDINGS: Multi planar MR imaging was obtained through the brain without contrast. Exam is significantly degraded by patient motion The midline structures appear intact. There is no evidence of Chiari malformation. On diffusion-weighted imaging there is extensive abnormal restricted diffusion throughout the posterior left frontal, left parietal and left occipital lobes, most evident in the superior left parietal lobe extending to the cortex with corresponding decreased signal on ADC map imaging consistent with extensive acute ischemia. This is primarily in the left MCA distribution. There are other smaller areas in the left posterior cerebral distribution. There is abnormal signal in the posterior right temporal lobe likely related to encephalomalacia related to prior subcortical infarct. The visualized paranasal sinuses demonstrate normal signal voids. The seventh and eighth nerve root complexes are intact. IMPRESSION: Findings consistent with extensive acute ischemia, primarily in the left MCA distribution as above. Reviewed, Interpreted and Dictated by Harish Kumar MD Transcribed by Kylie Grier Authenticated by Harish Kumar MD on 05/30/2021 04:06:50 PM [facility]
[2021-05-30 16:39] LABS: POC Glucose,Bedside 127 (70-110)
--- NOTE | 2021-05-30 18:38 | PC.NURSE ---
Pt is alert to self. Lungs have audible wheezes. He is currently on 2L NC w/O2 sats measuring >95%. His aguilar is to bedside draining dark cloudy urine. He has had approx 175 mls out this shift. He received a bath today. Right arm is flaccid and right sided facial droop noted. Speech is slurred, garbled and difficult to understand. Family has been updated on poc. He is currently resting in bed w/his eyes closed.
[2021-05-30 20:14] LABS: POC Glucose,Bedside 190 (70-110)
--- NOTE | 2021-05-31 03:19 | PC.NURSE ---
No acute changes this RN's shift. Patient remains aphasic and has difficulty finding words. Patient has been cooperative.
[2021-05-31 04:00] VITALS: BP 127/88; PULSE 76; RESP 22; TEMP 36.4; O2SAT 97
[2021-05-31 05:00] VITALS: BMI 27.4
[2021-05-31 05:58] LABS: POC Glucose,Bedside 163 (70-110)
[2021-05-31 07:05] LABS: Basophils % 0.1 % (0.1-2.0); Eosinophils % 0.1 % (0.1-12.0); Hematocrit 40.1 % (42.0-52.0); Hemoglobin 13.1 g/dL (14.1-18.0); Lymphocytes # 1.3 K/mm3 (0.7-4.5); Lymphocytes % 8.2 % (10-50); Mean Corpuscular HGB Conc 32.6 g/dL (31.8-35.4); Mean Corpuscular Hemoglobin 29.2 pg (27.0-31.2); Mean Corpuscular Volume 89.8 fl (80-94); Mean Platelet Volume 10.1 fl (7.4-10.4); Monocytes # 1.3 K/mm3 (0.1-1.0); Monocytes % 7.8 % (1.7-9.3); Neutrophils # 13.4 K/mm3 (1.8-7.8); Neutrophils % 83.7 % (37.0-80.0); Platelet Count 261 K/mm3 (142-424); Red Blood Count 4.46 M/mm3 (4.60-6.20); Red Cell Distribution Width 15.2 % (11.5-17.5)
[2021-05-31 07:26] LABS: MANUAL DIFFERENTIAL MANUAL DIFFERENTIAL (MANUAL DIFF)
[2021-05-31 07:55] LABS: Anion Gap 15.7 mEq/L (5-15); Blood Urea Nitrogen 26 mg/dl (9-20); Calcium 8.9 mg/dl (8.4-10.2); Carbon Dioxide 22 mmol/L (22.0-30.0); Chloride 103 mmol/L (98-107); Creatinine Clearance Estimated 83 mL/min (50-200); Estimated Glomerular Filt Rate 95 ml/min (>60); GFR (African American) 115 ML/MIN (>60); Glucose 137 mg/dl (74-100); Potassium 4.7 mmoL/L (3.5-5.1); Sodium 136 mmol/L (136-145)
[2021-05-31 08:00] VITALS: BP 126/76; PULSE 78; RESP 20; TEMP 36.8; O2SAT 96; O2SAT 97
--- NOTE | 2021-05-31 09:33 | HMH.ACPN2 ---
Internal Medicine - PN: Subj *Date: 05/31/21 *Time: 16:14 Interval history: 71-year-old male patient resting in bed quietly, he does have right-sided weakness, right-sided facial droop, slurred speech, and difficulty finding words. Discussed MRI results without contrast with Dr. Briseno from neurology. He was down today for MRI with and without contrast and was unable to tolerate the procedure even with Ativan preprocedure. She recommended MRI with and without contrast and to increase sedation if needed. We will make him n.p.o. after midnight and best with anesthesia tomorrow. Ezekiel from MDs stated we are put on the urgent transfer status Exam Vital signs and Labs for Last 24 Hours: Temp Pulse Resp BP Pulse Ox 97.6 F 76 22 127/88 97 05/31/21 04:00 05/31/21 04:00 05/31/21 04:00 05/31/21 04:00 05/31/21 04:00 Laboratory Results - last 24 hr 05/30/21 10:56: POC Glucose 146 H 05/30/21 12:50: WBC 16.6 H, RBC 4.60, Hgb 13.5 L, Hct 41.3 L, MCV 89.9, MCH 29.4, MCHC 32.8, RDW 15.3, Plt Count 289, MPV 8.6, Neut % (Auto) 90.4 H, Lymph % (Auto) 4.8 L, [place] % (Auto) 4.4, Eos % (Auto) 0.4, Baso % (Auto) 0.1, Neut # (Auto) 15.0 H, Lymph # (Auto) 0.8, [place] # (Auto) 0.7, Eos # (Auto) 0.1, Baso # (Auto) 0.0, Total Counted 100, Neutrophils % (Manual) 92 H, Lymphocytes % (Manual) 8 L, Platelet Estimate Normal, RBC Morphology Normal 05/30/21 12:50: Sodium 134 L, Potassium 4.4, Chloride 101, Carbon Dioxide 22, Anion Gap 15.4 H, BUN 21 H, Creatinine 0.80, Estimated Creat Clear 81, Estimated GFR 95, Est GFR ( Amer) 115, Glucose 183 H, Calcium 8.7 05/30/21 16:11: POC Glucose 127 H 05/30/21 20:02: POC Glucose 190 H 05/31/21 05:48: WBC 16.0 H, RBC 4.46 L, Hgb 13.1 L, Hct 40.1 L, MCV 89.8, MCH 29.2, MCHC 32.6, RDW 15.2, Plt Count 261, MPV 10.1, Neut % (Auto) 83.7 H, Lymph % (Auto) 8.2 L, [place] % (Auto) 7.8, Eos % (Auto) 0.1, Baso % (Auto) 0.1, Neut # (Auto) 13.4 H, Lymph # (Auto) 1.3, [place] # (Auto) 1.3 H, Eos # (Auto) 0.0, Baso # (Auto) 0.0 05/31/21 05:48: Sodium 136, Potassium 4.7, Chloride 103, Carbon Dioxide 22, Anion Gap 15.7 H, BUN 26 H, Creatinine 0.80, Estimated Creat Clear 83, Estimated GFR 95, Est GFR ( Amer) 115, Glucose 137 H D, Calcium 8.9 05/31/21 05:48: POC Glucose 163 H I & O for Last 24 hours: Intake & Output 05/28/21 05/29/21 05/30/21 05/31/21 23:59 23:59 23:59 23:59 Intake Total 180 / 180 1042 / 1042 687 / 687 Output Total 600 / 600 525 / 525 200 / 200 Balance -420 / -420 517 / 517 487 / 487 Weight 193 lb 1 oz 193 lb 1.6 oz 191 lb 12.835 oz 196 lb 3.382 oz Microbiology Reports for the Last 24 Hours: Microbiology 05/28/21 20:50 Blood Blood Culture - Preliminary NO GROWTH AFTER 48 HOURS 05/28/21 20:50 Blood Blood Culture - Preliminary NO GROWTH AFTER 48 HOURS - Constitutional no acute distress - *Routine HEENT Exam Head: Present: normocephalic Eye: Present: EOMI ENT: Present: mucous membranes moist - *Routine Neck Exam Present: supple, trachea midline. Absent: tracheal deviation - *Routine Respiratory Exam Present: CTA bilaterally. Absent: accessory muscle use - *Routine Cardiovascular Exam Present: RRR - *Routine Abdominal Exam Present: soft, normoactive bowel sounds. Absent: tenderness, firm - *Routine Extremities Exam Present: pulses intact. Absent: cyanosis, clubbing - *Routine Skin Exam Present: intact, dry. Absent: cyanosis, erythema - *Routine Neurological Exam Present: alert, altered mental status right-sided weakness right-sided facial droop slurred speech difficulty finding words - Routine Psychiatric Exam Present: cooperative, unable to assess Assessment and Plan (1) Brain metastases Status: Acute Category: Medical Code(s): C79.31 - Secondary malignant neoplasm of brain (2) Carotid stenosis, bilateral Status: Acute Category: Medical Code(s): I65.23 - Occlusion and steno
[2021-05-31 09:51] LABS: Eosinophils % 1 % (0-3); Lymphocytes % 6 % (10-50); Monocytes % 10 % (2-9); Neutrophils % 83 % (42-76); Platelet Estimate Normal; Total Cells Counted 100
[2021-05-31 11:52] LABS: POC Glucose,Bedside 133 (70-110)
[2021-05-31 16:00] VITALS: BP 130/91; PULSE 107; RESP 22; TEMP 36.9; O2SAT 95
[2021-05-31 16:10] LABS: POC Glucose,Bedside 153 (70-110)
[2021-05-31 20:00] VITALS: BP 132/83; PULSE 82; RESP 23; TEMP 36.4; O2SAT 96; O2SAT 98
[2021-05-31 20:30] LABS: POC Glucose,Bedside 147 (70-110)
[2021-06-01] VITALS (16 sets, daily range): BP systolic 138–169; BP diastolic 81–111; PULSE 90–123; RESP 20–30; TEMP 36.1–36.7; O2SAT 93–100; BMI 27.1
--- NOTE | 2021-06-01 01:24 | PC.NURSE ---
LATE ENTRY: Joe from lab called with a positive blood culture result on the patient at 195 Name, , and result verified x2. MD marketing and public relations manager paged New orders received for Vancomycin, call pharmacy for dosing. Nightwatch paged for dosing. loading dose of 1500mg IV ONCE 1000mg Q12HR IV LISA
[2021-06-01 06:40] LABS: Anion Gap 15.8 mEq/L (5-15); Blood Urea Nitrogen 28 mg/dl (9-20); Calcium 8.7 mg/dl (8.4-10.2); Carbon Dioxide 16 mmol/L (22.0-30.0); Chloride 108 mmol/L (98-107); Creatinine Clearance Estimated 82 mL/min (50-200); Estimated Glomerular Filt Rate 95 ml/min (>60); GFR (African American) 115 ML/MIN (>60); Glucose 178 mg/dl (74-100); Potassium 4.8 mmoL/L (3.5-5.1); Sodium 135 mmol/L (136-145)
[2021-06-01 07:21] LABS: Basophils # 0.1 K/mm3 (0-0.2); Basophils % 0.3 % (0.1-2.0); Hematocrit 50.6 % (42.0-52.0); Hemoglobin 13.8 g/dL (14.1-18.0); Lymphocytes % 4.4 % (10-50); Mean Corpuscular HGB Conc 27.3 g/dL (31.8-35.4); Mean Corpuscular Hemoglobin 24.9 pg (27.0-31.2); Mean Corpuscular Volume 91.2 fl (80-94); Mean Platelet Volume 10.3 fl (7.4-10.4); Monocytes # 1.5 K/mm3 (0.1-1.0); Monocytes % 6.7 % (1.7-9.3); Neutrophils # 19.4 K/mm3 (1.8-7.8); Neutrophils % 88.5 % (37.0-80.0); Platelet Count 182 K/mm3 (142-424); Red Blood Count 5.55 M/mm3 (4.60-6.20)
[2021-06-01 07:27] LABS: MANUAL DIFFERENTIAL MANUAL DIFFERENTIAL (MANUAL DIFF)
[2021-06-01 07:37] LABS: POC Glucose,Bedside 166 (70-110)
[2021-06-01 08:38] LABS: Lymphocytes % 3 % (10-50); Monocytes % 3 % (2-9); Neutrophils % 94 % (42-76); Platelet Estimate Normal; Total Cells Counted 100
--- NOTE | 2021-06-01 10:13 | HMH.ACPN2 ---
Internal Medicine - PN: Subj *Date: 06/01/21 *Time: 08:45 Interval history: pt laying in bed, rt side face droop and flaccid rt upper ext, speech slurred Exam Vital signs and Labs for Last 24 Hours: Temp Pulse Resp BP Pulse Ox 97.5 F L 102 H 30 H 150/111 H 98 06/01/21 08:00 06/01/21 08:00 06/01/21 08:00 06/01/21 08:00 06/01/21 08:00 Laboratory Results - last 24 hr 05/31/21 11:44: POC Glucose 133 H 05/31/21 15:59: POC Glucose 153 H 05/31/21 20:22: POC Glucose 147 H 06/01/21 05:20: WBC 22.0 H* D, RBC 5.55, Hgb 13.8 L, Hct 50.6, MCV 91.2, MCH 24.9 L, MCHC 27.3 L, RDW 15.0, Plt Count 182 D, MPV 10.3, Neut % (Auto) 88.5 H, Lymph % (Auto) 4.4 L, [place] % (Auto) 6.7, Eos % (Auto) 0.0 L, Baso % (Auto) 0.3, Neut # (Auto) 19.4 H, Lymph # (Auto) 1.0, [place] # (Auto) 1.5 H, Eos # (Auto) 0.0, Baso # (Auto) 0.1, Total Counted 100, Neutrophils % (Manual) 94 H, Lymphocytes % (Manual) 3 L, Monocytes % (Manual) 3, Platelet Estimate Normal 06/01/21 05:20: Sodium 135 L, Potassium 4.8, Chloride 108 H, Carbon Dioxide 16 L, Anion Gap 15.8 H, BUN 28 H, Creatinine 0.80, Estimated Creat Clear 82, Estimated GFR 95, Est GFR ( Amer) 115, Glucose 178 H D, Calcium 8.7 06/01/21 06:35: POC Glucose 166 H I & O for Last 24 hours: Intake & Output 05/29/21 05/30/21 05/31/21 06/01/21 11:59 11:59 11:59 11:59 Intake Total 180 / 180 2649 / 2649 120 / 120 Output Total 950 / 950 375 / 375 Balance -770 / -770 2274 / 2274 120 / 120 Weight 193 lb 1.6 oz 192 lb 3.889 oz 196 lb 3.382 oz 193 lb 12.581 oz Microbiology Reports for the Last 24 Hours: Microbiology 05/28/21 20:50 Blood Blood Culture - Preliminary - Constitutional no acute distress - *Routine HEENT Exam Head: Present: normocephalic Eye: Present: PERRL ENT: Present: mucous membranes moist - *Routine Neck Exam Present: supple. Absent: lymphadenopathy - *Routine Respiratory Exam Present: CTA bilaterally - *Routine Cardiovascular Exam Present: RRR - *Routine Abdominal Exam Present: soft, normoactive bowel sounds. Absent: tenderness - *Routine Extremities Exam Present: amputation Comments: rt aka - *Routine Skin Exam Present: intact - *Routine Neurological Exam Present: alert, facial asymmetry rt facial drop and rt upper ext flaccid, speech slurred Assessment and Plan (1) Brain metastases Status: Acute Category: Medical Code(s): C79.31 - Secondary malignant neoplasm of brain (2) Carotid stenosis, bilateral Status: Acute Category: Medical Code(s): I65.23 - Occlusion and stenosis of bilateral carotid arteries (3) Metastatic lung cancer (metastasis from lung to other site) Status: Acute Category: Medical Code(s): C34.90 - Malignant neoplasm of unspecified part of unspecified bronchus or lung (4) Pericardial effusion Status: Acute Category: Medical Code(s): I31.3 - Pericardial effusion (noninflammatory) (5) Carotid artery stenosis Status: Chronic Qualifiers: Laterality: unspecified laterality Qualified Code(s): I65.29 - Occlusion and stenosis of unspecified carotid artery Category: Medical Code(s): I65.29 - Occlusion and stenosis of unspecified carotid artery (6) Chronic obstruct airways disease Status: Chronic Qualifiers: COPD type: chronic bronchitis Chronic bronchitis type: mixed simple and mucopurulent Qualified Code(s): J41.8 - Mixed simple and mucopurulent chronic bronchitis Category: Medical Code(s): J44.9 - Chronic obstructive pulmonary disease, unspecified (7) Coronary arteriosclerosis Status: Chronic Category: Medical Code(s): I25.10 - Atherosclerotic heart disease of [place] coronary artery without angina pectoris (8) Diabetes type 2, controlled Status: Chronic Qualifiers: Diabetes mellitus residential insulin use: without residential use Diabetes mellitus complication status: with circulatory complication Diabetes mellitus complication detail: with othe
[2021-06-01 12:23] LABS: POC Glucose,Bedside 149 (70-110)
--- NOTE | 2021-06-01 12:41 | ECG_ITS ---
APPROVED REPORT Exam: Resting ECG HR:122 bpm ECG Measurements Heart Rate 122 AXES QRSd 90 QRS -17 QT 314 T 94 QTc 386 Conclusion ATRIAL FLUTTER/TACHYCARDIA WITH RAPID VENTRICULAR RESPONSE LOW QRS VOLTAGE IN PRECORDIAL LEADS [QRS DEFLECTION < 1.0 mV IN CHEST LEADS] NONSPECIFIC T-WAVE ABNORMALITY ABNORMAL ECG UNCONFIRMED REPORT Electronically signed by : Zaire Bhagat MD 06/06/2021 17:34:38
--- NOTE | 2021-06-01 13:13 | HMH.PHACONS ---
- Pharmacy Consult Date: 06/01/21 Time: 13:14 Referring provider: DR. KNIGHT Reason for Consult:: VANCOMYCIN DOSING Allergies and ADEs:: Allergies Allergy/AdvReac Type Severity Reaction Status Date / Time No Known Allergies Allergy Verified 05/18/21 08:41 Home Medications:: Home Medications Medication Instructions Recorded Confirmed Type acetaminophen 500 mg tablet 500 mg PO Q6H PRN #90 tab 05/26/18 05/28/21 Rx Sennosides/Docusate Sodium 1 tab PO QHS 09/12/18 05/28/21 History [Sennosides-Docusate Sodium Tab] bisacodyl 10 mg rectal suppository 10 mg [place] DAILY PRN 11/27/19 05/28/21 History albuterol sulfate 90 mcg/actuation 2 puff INHALATION Q4-6H PRN #8.5 g 11/30/20 05/28/21 Rx aerosol inhaler linagliptin 5 mg tablet 5 mg PO DAILY #90 tab 11/30/20 05/28/21 Rx ipratropium 0.5 mg-albuterol 3 mg 3 ml INHALATION Q4-6H PRN #180 ml 05/18/21 05/28/21 Rx (2.5 mg base)/3 mL nebulization soln Aspirin [Low Dose Aspirin EC] 81 mg PO DAILY 05/28/21 05/28/21 History Clopidogrel Bisulfate [Plavix] 75 mg PO DAILY 05/28/21 05/28/21 History Docusate Sodium 100 mg PO DAILY PRN 05/28/21 05/28/21 History Fluoxetine HCl 60 mg PO DAILY 05/28/21 05/28/21 History Fluticasone/Umeclidin/Vilanter 1 inh INHALATION DAILY 05/28/21 05/28/21 History [Trelegy Ellipta] Metformin HCl [Metformin 1000mg 1,000 mg PO BID 05/28/21 05/28/21 History Tablets] Pantoprazole Sodium 40 mg PO HS 05/28/21 05/28/21 History Simvastatin 40 mg PO HS 05/28/21 05/28/21 History Sucralfate [Sucralfate 1gm 1 g PO BID 05/28/21 05/28/21 History Tab] Trazodone HCl 50 mg PO HS 05/28/21 05/28/21 History glipiZIDE [Glucotrol 5mg tablet] 5 mg PO DAILY 05/28/21 05/28/21 History risperiDONE [Risperidone] 1 mg PO HS 05/28/21 05/28/21 History Height: 1.8 m Weight: 87.9 kg Laboratory Results:: Laboratory Results - last 24 hr 05/31/21 15:59: POC Glucose 153 H 05/31/21 20:22: POC Glucose 147 H 06/01/21 05:20: WBC 22.0 H* D, RBC 5.55, Hgb 13.8 L, Hct 50.6, MCV 91.2, MCH 24.9 L, MCHC 27.3 L, RDW 15.0, Plt Count 182 D, MPV 10.3, Neut % (Auto) 88.5 H, Lymph % (Auto) 4.4 L, [place] % (Auto) 6.7, Eos % (Auto) 0.0 L, Baso % (Auto) 0.3, Neut # (Auto) 19.4 H, Lymph # (Auto) 1.0, [place] # (Auto) 1.5 H, Eos # (Auto) 0.0, Baso # (Auto) 0.1, Total Counted 100, Neutrophils % (Manual) 94 H, Lymphocytes % (Manual) 3 L, Monocytes % (Manual) 3, Platelet Estimate Normal 06/01/21 05:20: Sodium 135 L, Potassium 4.8, Chloride 108 H, Carbon Dioxide 16 L, Anion Gap 15.8 H, BUN 28 H, Creatinine 0.80, Estimated Creat Clear 82, Estimated GFR 95, Est GFR ( Amer) 115, Glucose 178 H D, Calcium 8.7 06/01/21 06:35: POC Glucose 166 H 06/01/21 12:14: POC Glucose 149 H Medical History: Reports:: Anxiety, Cancer (lung), Congestive Heart Failure, Chronic Obstructive Pulmonary Disease (COPD), Coronary Artery Disease, Depression, Diabetes Mellitus Type 2, Hyperlipidemia, Hypertension, Lung Disease Denies:: Diabetes Mellitus Type 1, Internal Pacemaker, MRSA, Seizures Assessment and Plan (1) Brain metastases Status: Acute Category: Medical Code(s): C79.31 - Secondary malignant neoplasm of brain (2) Carotid stenosis, bilateral Status: Acute Category: Medical Code(s): I65.23 - Occlusion and stenosis of bilateral carotid arteries (3) Metastatic lung cancer (metastasis from lung to other site) Status: Acute Category: Medical Code(s): C34.90 - Malignant neoplasm of unspecified part of unspecified bronchus or lung (4) Pericardial effusion Status: Acute Category: Medical Code(s): I31.3 - Pericardial effusion (noninflammatory) (5) Carotid artery stenosis Status: Chronic Qualifiers: Laterality: unspecified laterality Qualified Code(s): I65.29 - Occlusion and stenosis of unspecified carotid artery Category: Medical Code(s): I65.29 - Occlusion and stenosis of unspecified carotid artery (6) Chronic obstruct airways disease Status: Chronic Qualifiers:
--- NOTE | 2021-06-01 13:28 | CA_ITS ---
APPROVED REPORT EXAM: Limited 2D Echocardiogram Emergency Doctor: Shannan Burdick RVT Ht: 5 ft 10 in Wt: 192lbs BSA: 2.05 BP: 142/99 mmHg Indications: KNOWN PERICARDIAL EFFUSION-? CARDIAC TAMPONADE,TACHYCARDIA,INCREASED SOA,DR DARNELL PERFORMED PERICARDIOCENTESIS AT BEDSIDE Conclusion 1. Limited echocardiogram was performed pre and post pericardiocentesis. 2. Prepericardiocentesis echocardiogram showed moderate to large sized pericardial effusion with intermittent collapse of the right ventricle in diastole raising the concerns for presence of tamponade physiology. Normal left ventricular systolic function noted. 3. Post pericardiocentesis there is no significant pericardial effusion noted. Electronically signed by : Adria Sher MD 06/01/2021 18:40:42
--- NOTE | 2021-06-01 13:32 | HMH.CNCARD ---
History of Present Illness Consult date: 06/01/21 Requesting physician: Devon Poole Consult reason: shortness of breath Chief complaint: soa History of present illness: This is a 71 year old white male who was admitted to the hospital with concerns of a stroke versus brain mets. The patient is currently awaiting transfer to [facility]. The patient had sudden onset of diaphoresis and appeared short of breath this afternoon. The patient has pulses paradoxus. He has an echocardiogram that shows questionable cardiac tamponade. This was a difficult study to interpret so we will repeat this at this time. The patient is really confused at this time and he is unable to answer any my questions. He is really not following any of our commands. He appears to be having some slight respiratory distress during our examination. [facility] History I have reviewed the patient's past medical history: Yes Medical History: Reports:: Anxiety, Cancer (lung), Congestive Heart Failure, Chronic Obstructive Pulmonary Disease (COPD), Coronary Artery Disease, Depression, Diabetes Mellitus Type 2, Hyperlipidemia, Hypertension, Lung Disease Denies:: Diabetes Mellitus Type 1, Internal Pacemaker, MRSA, Seizures *Have you ever received a pneumonia vaccine?: No *Have you received a flu vaccine this season?: No Other Medical History: Reports: Arthritis. Denies: Blood Transfusion Reaction Laterality Cases: Right: Other Other Surgeries: Yes: Cardiac Catheterization, Cardiac Surgery, Colonoscopy, Coronary Stent, EGD, Other. No: Pacemaker Amputation: Yes (right below knee) Fractures: No - *Social History Smoking Status: Former smoker Tobacco Type: cigarettes # Packs/Day (cigarettes): 1 #Yrs smoked (if former smoker): 50 Alcohol Intake: never Substance Use Type: denies use *Occupational Status:: disabled Housing: house Household Members: children *Travel in the last 8 weeks: None - Psychiatric History Pschychiatric History:: Reports:: Anxiety, Depression Family Hx:: Coronary Artery Disease Meds Home Medications Medication Instructions Recorded Confirmed Type acetaminophen 500 mg tablet 500 mg PO Q6H PRN #90 tab 05/26/18 05/28/21 Rx Sennosides/Docusate Sodium 1 tab PO QHS 09/12/18 05/28/21 History [Sennosides-Docusate Sodium Tab] bisacodyl 10 mg rectal suppository 10 mg [place] DAILY PRN 11/27/19 05/28/21 History albuterol sulfate 90 mcg/actuation 2 puff INHALATION Q4-6H PRN #8.5 g 11/30/20 05/28/21 Rx aerosol inhaler linagliptin 5 mg tablet 5 mg PO DAILY #90 tab 11/30/20 05/28/21 Rx ipratropium 0.5 mg-albuterol 3 mg 3 ml INHALATION Q4-6H PRN #180 ml 05/18/21 05/28/21 Rx (2.5 mg base)/3 mL nebulization soln Aspirin [Low Dose Aspirin EC] 81 mg PO DAILY 05/28/21 05/28/21 History Clopidogrel Bisulfate [Plavix] 75 mg PO DAILY 05/28/21 05/28/21 History Docusate Sodium 100 mg PO DAILY PRN 05/28/21 05/28/21 History Fluoxetine HCl 60 mg PO DAILY 05/28/21 05/28/21 History Fluticasone/Umeclidin/Vilanter 1 inh INHALATION DAILY 05/28/21 05/28/21 History [Trelegy Ellipta] Metformin HCl [Metformin 1000mg 1,000 mg PO BID 05/28/21 05/28/21 History Tablets] Pantoprazole Sodium 40 mg PO HS 05/28/21 05/28/21 History Simvastatin 40 mg PO HS 05/28/21 05/28/21 History Sucralfate [Sucralfate 1gm 1 g PO BID 05/28/21 05/28/21 History Tab] Trazodone HCl 50 mg PO HS 05/28/21 05/28/21 History glipiZIDE [Glucotrol 5mg tablet] 5 mg PO DAILY 05/28/21 05/28/21 History risperiDONE [Risperidone] 1 mg PO HS 05/28/21 05/28/21 History triazolam 0.25 mg tablet 0.25 mg PO ONCE #1 tab 06/01/21 Rx Allergies Allergy/AdvReac Type Severity Reaction Status Date / Time No Known Allergies Allergy Verified 05/18/21 08:41 Exam Vital signs and Labs for Last 24 Hours: Temp Pulse Resp BP Pulse Ox 97.5 F L 108 H 25 H 153/101 H 99 06/01/21 12:00 06/01/21 12:00 06/01/21 12:00 06/01/21 12:00 06/01/21 12:00 Laboratory Results - last 24 hr 05/31/21 15:
--- NOTE | 2021-06-01 14:12 | XR_ITS ---
FINAL REPORT CLINICAL HISTORY: mets,cardiac tamade FINDINGS: The cardiac silhouette is mildly enlarged. The mediastinum is normal. There is dense patchy airspace opacity in the right lung base concerning for acute pneumonia. There are no pleural effusions. There is no pneumothorax. There is no osseous abnormality. IMPRESSION: Acute right lung base pneumonia. Reviewed, Interpreted and Dictated by Harish Kumar MD Transcribed by Mahesh Gilmore Authenticated by Harish Kumar MD on 06/01/2021 03:50:45 PM [facility]
--- NOTE | 2021-06-01 14:41 | HMH.ANESCL ---
[facility] Anesthesia Checklist - Structural Data Admitted From: Inpatient Planned Operative Procedure/s: pericardial centesis Consent for Planned Operative Procedure(s) Verified: Yes - Additional verifications Anesthesia Reactions: No Hx Blood Transfusions: No Blood Transfusion Reaction: No - Airway Assessment C-Spine Mobility Assessed: Yes TMJ Mobility Assessed: Yes Dentition: Poor Dentition - Neurological Assessment Level of Consciousness: Drowsy, Lethargic, Disoriented - Anesthesia Plan Anesthesia Risk discussed: Yes Anesthesia Plan: Patient unable to respond/answer ASA Class: IV Anesthesia Type: MAC [facility] History I have reviewed the patient's past medical history: Yes Medical History: Reports:: Anxiety, Cancer (lung), Congestive Heart Failure, Chronic Obstructive Pulmonary Disease (COPD), Coronary Artery Disease, Depression, Diabetes Mellitus Type 2, Hyperlipidemia, Hypertension, Lung Disease Denies:: Diabetes Mellitus Type 1, Internal Pacemaker, MRSA, Seizures *Have you ever received a pneumonia vaccine?: No *Have you received a flu vaccine this season?: No Other Medical History: Reports: Arthritis. Denies: Blood Transfusion Reaction Anesthesia experience/problems:: unable to optain Laterality Cases: Right: Other Other Surgeries: Yes: Cardiac Catheterization, Cardiac Surgery, Colonoscopy, Coronary Stent, EGD, Other. No: Pacemaker Amputation: Yes (right below knee) Fractures: No - *Social History Smoking Status: Former smoker Tobacco Type: cigarettes # Packs/Day (cigarettes): 1 #Yrs smoked (if former smoker): 50 Alcohol Intake: never Substance Use Type: denies use *Occupational Status:: disabled Housing: house Household Members: children *Travel in the last 8 weeks: None - Psychiatric History Pschychiatric History:: Reports:: Anxiety, Depression Family Hx:: Coronary Artery Disease
--- NOTE | 2021-06-01 16:15 | XR_ITS ---
PROCEDURE INFORMATION: Exam: XR Chest Exam date and time: 06/01/2021 4:15 PM Age: 71 years old Clinical indication: Device placement; Other: Cardiac tamponade; Additional info: Chest tube TECHNIQUE: Imaging protocol: XR of the chest. Views: 1 view. COMPARISON: CR XR CHEST PORTABLE 06/01/2021 3:00 PM FINDINGS: Tubes, catheters and devices: Pigtail catheters x2 are most likely pericardial drains. Lungs: Again noted is hazy airspace consolidation throughout the right lung. The left lung is clear. The appearance of the lungs is essentially unchanged in the interval. A vertical line along the lateral aspect of the right hemithorax is most likely a skin fold. Pleural spaces: Unremarkable. No pleural effusion. No pneumothorax. Heart/Mediastinum: Unremarkable. No cardiomegaly. Bones/joints: Unremarkable. IMPRESSION: Airspace consolidation in the right lung, unchanged in the interval.
[2021-06-01 16:32] LABS: Troponin I 0.05 ng/ml (0.00-0.034)
[2021-06-01 16:50] LABS: POC Glucose,Bedside 158 (70-110)
[2021-06-01 16:50] LABS: POC Glucose,Bedside 116 (70-110)
[2021-06-01 17:47] LABS: Troponin I < 0.01 ng/ml (0.00-0.034)
[2021-06-01 18:47] LABS: Troponin I 0.12 ng/ml (0.00-0.034)
--- NOTE | 2021-06-01 19:30 | PC.NURSE ---
PT IS RESTING IN BED. NO COMPLAINTS OF DISCOMFORT. AT 1245 THIS SHIFT PT'S HR WAS IN THE 130'S. RESPIRATIONS 32-40. AUDIBLE WHEEZES AND DIAPHORETIC. NOTIFIED ROSALIA. ORDERS (EKG,TROPONIN AND CARDIOLOGY CONSULT). CARDIOLOGY ORDERED AN ECHO AND NOTIFIED FAMILY FOR CONSENT TO PERFORM A PERICARDIOCENTESIS WITH DRAIN. PT TOLERATED PROCEDURE WELL. PERICARDIAL FLUID WAS COLLECTED AND SENT TO LAB. 550 ML'S OF FLUID WAS EMPTIED FROM DRAIN BAG AT THE END OF THE SHIFT. SINCE PROCEDURE PT'S HR HAS MAINTAINED 100-115. LAST BP 153/99. RESPIRATIONS 26-30. ROSALIA CALLED AND STATED THEY NOTIFIED FAMILY TO UPDATE THEM AND TO HAVE A DISCUSSION TOMORROW ABOUT PT'S PLAN OF CARE. CALLED THIS MORNING FOR AN UPDATE ON PT AND THERE IS STILL NOT A BED AVAILABLE AT THIS TIME. REPORT HAND OFF TO ADELSO LEMOS RN.
[2021-06-01 20:09] LABS: POC Glucose,Bedside 148 (70-110)
[2021-06-01 22:49] LABS: Troponin I 0.12 ng/ml (0.00-0.034)
[2021-06-02] VITALS (17 sets, daily range): BP systolic 105–149; BP diastolic 57–91; PULSE 71–96; RESP 16–30; TEMP 36.4–36.8; O2SAT 91–98; BMI 27.3
[2021-06-02 05:39] LABS: POC Glucose,Bedside 125 (70-110)
--- NOTE | 2021-06-02 06:00 | CA_ITS ---
APPROVED REPORT EXAM: Comprehensive 2D, Doppler, and color-flow Echocardiogram Aerial Survey Technician: Yudelka Dugan, RCS, RVS Ht: 5 ft 10 in Wt: 195lbs BSA: 2.07 BP: 127/91 mmHg Indications: S/P pericardial drain, CVA 2 days ago, Lung ca AMS 2D Dimensions IVSd 1.20 cm M: 0.6-1.2 PWd 1.00 cm M: 0.6 - 1.2 LVDd 5.80 cm M: 4.2 - 5.9 RVOT (PLAX) 1.90 cm (M/F) 2.1-3.5 M-Mode Dimensions LVDd 6.23 cm (3.5-5.7) LVDs 4.84 cm (3.5-5.7) EF (Teich) 44.10% FS 22.30% EDV (Teich) 196.10 mL ESV (Teich) 109.60 mL Conclusion 1. Limited echocardiogram was obtained for follow-up on pericardial effusion. Status post pericardiocentesis. 2. Normal left ventricular systolic function, no significant pericardial effusion noted. Electronically signed by : Adria hSer MD 06/03/2021 09:35:14
--- NOTE | 2021-06-02 06:00 | XR_ITS ---
PROCEDURE INFORMATION: Exam: XR Chest Exam date and time: 06/02/2021 6:00 AM Age: 71 years old Clinical indication: Cardiovascular condition or disease; Other: Cardiac tamponade; Additional info: C cardiac tamponade TECHNIQUE: Imaging protocol: XR of the chest. Views: 1 view. COMPARISON: CR XR CHEST PORTABLE 06/01/2021 7:08 PM FINDINGS: Lungs: Diffuse right-sided airspace disease is unchanged. Vertical line previously noted is not seen. Pleural spaces: No pneumothorax is noted. Heart/Mediastinum: The heart is shifted toward the right. Bones/joints: Unremarkable. IMPRESSION: Persistent right-sided airspace disease unchanged.
--- NOTE | 2021-06-02 06:33 | PC.NURSE ---
Pt has been restless t/o the night with episodes of confusion. Pt remains on 2L NC with 02 sats >90%. Audible wheezes are present this morning. Patient's RR has been 22-26 t/o the night. Pt has had 275ml of fluid emptied from pericardial drain at bedside. Qureshi remains in place draining clear yellow urine with 925ml out this shift.
[2021-06-02 06:42] LABS: Basophils % 0.1 % (0.1-2.0); Hematocrit 39.4 % (42.0-52.0); Lymphocytes % 4.2 % (10-50); Mean Corpuscular HGB Conc 31.1 g/dL (31.8-35.4); Mean Corpuscular Hemoglobin 28.6 pg (27.0-31.2); Mean Corpuscular Volume 92.1 fl (80-94); Mean Platelet Volume 9.2 fl (7.4-10.4); Monocytes # 1.9 K/mm3 (0.1-1.0); Monocytes % 7.9 % (1.7-9.3); Neutrophils # 20.9 K/mm3 (1.8-7.8); Neutrophils % 87.6 % (37.0-80.0); Platelet Count 306 K/mm3 (142-424); Red Blood Count 4.27 M/mm3 (4.60-6.20); Red Cell Distribution Width 15.1 % (11.5-17.5); White Blood Count 23.9 K/mm3 (4.8-10.8)
[2021-06-02 06:46] LABS: MANUAL DIFFERENTIAL MANUAL DIFFERENTIAL (MANUAL DIFF)
--- NOTE | 2021-06-02 06:46 | PC.NURSE ---
0610: NOTIFIED DR. KNIGHT PATIENT IS WHEEZING, LABORED BREATHING. ORDER FOR DUONEB Q4HR RECEIVED.
--- NOTE | 2021-06-02 06:47 | PC.NURSE ---
0615: NOTIFIED RT KRYSTLE THAT PATIENT HAS A NEW ORDER FOR DUONEB, REQUESTED ONE AT THIS TIME.
[2021-06-02 07:14] LABS: Anion Gap 11.3 mEq/L (5-15); Blood Urea Nitrogen 21 mg/dl (9-20); Calcium 6.4 mg/dl (8.4-10.2); Carbon Dioxide 18 mmol/L (22.0-30.0); Chloride 115 mmol/L (98-107); Creatinine Clearance Estimated 83 mL/min (50-200); Estimated Glomerular Filt Rate 111 ml/min (>60); GFR (African American) 134 ML/MIN (>60); Glucose 113 mg/dl (74-100); Potassium 3.3 mmoL/L (3.5-5.1); Sodium 141 mmol/L (136-145)
[2021-06-02 07:53] LABS: Eosinophils % 2 % (0-3); Lymphocytes % 5 % (10-50); Monocytes % 7 % (2-9); Neutrophils % 86 % (42-76); Platelet Estimate Normal; RBC Morphology Normal; Total Cells Counted 100
[2021-06-02 08:26] LABS: Hemoglobin 12.2 g/dL (14.1-18.0)
--- NOTE | 2021-06-02 09:20 | CARE MANAGER ---
Received a call from Narda Bell in the ICU that family is requesting a change in patrol sergeant. This sample case porter spoke with ROSA Pineda who states that she would like Dr. Medina to follow this patient per her request. Notified TOMAS Iverson and about family wishes. Called Dr. Medina and he agrees and he will assume primary care of the patient this am.
--- NOTE | 2021-06-02 12:19 | P.PCN_ITS ---
[facility] Procedure Note Procedure Note:: Procedure Date/Time: 06.02.2021 @ 1345 Procedure: Pericardiocentesis and pericardial drain placement Indication: Diagnostic and therapeutic removal of pericardial fluid from the pericardial space secondary to cardiac tamponade Performed by: Mayo Bazzi MD Consent: Consent was obtained from the patient's POA by verbal consent. Procedure summary: Consent was obtained and a timeout was performed verifying the correct patient, procedure, and site. The patient's subxyphoid area was prepped and draped in sterile fashion. Anesthesia sedated the patient, please see Anesthesia note. Ultrasound was used to identify the fluid. The needle was introduced into the pericardial space. Appropriate fluid return was obtained. There was 600 mL of blood tinged fluid removed from the pericardial space. The needle was removed and then a pigtail drain was placed over a wire in the pericardial space. A s uture was placed to hold the pigtail drain in place and a dressing was applied. The patient tolerated the procedure well and there were no immediate complications noted. Blood loss was minimal. Chest x-ray was performed following the procedure as well as an echocardiogram. Complications: None
--- NOTE | 2021-06-02 12:26 | HMH.PNCARD ---
Subjective Date: 06/02/21 Time: 12: Principal diagnosis: cardiac tamponade Interval history: This is a 71-year-old gentleman who was admitted to the hospital for a questionable stroke. The patient has a known history of lung CA in the past. It appears that the patient's lung cancer has returned and there is some question on whether this is metastatic lung cancer. The patient had a CTA of the brain that showed possible brain mets. However the MRI of his brain showed an acute stroke and there was no mention of brain metastasis. Yesterday the patient had sudden onset of diaphoresis, shortness of breath and tachycardia. He did have organized atrial activity. The patient had pulsus paradoxus and a previous echocardiogram which could not rule out cardiac tamponade. A stat echocardiogram was obtained and the patient did have cardiac tamponade and Dr. Bazzi performed a bedside pericardiocentesis with pericardial drain placement. During the pericardiocentesis he had 600 mL of blood-tinged fluid removed from the pericardial space. He has a pigtail drain in place to gravity which has had approximately 730 mL of fluid drained since the initial placement. Following the pericardiocentesis and drain placement the patient's heart rate slowed down and he was in fact in sinus rhythm. His shortness of breath has improved. He still remains a little tachypneic today but he does not appear short of breath as he was yesterday. His diaphoresis has resolved and today he is no longer tachycardic. He is able to answer a few yes and no questions today but still has some confusion and mental status changes. Exam Vital signs and Labs for Last 24 Hours: Temp Pulse Resp BP Pulse Ox 98.3 F 78 16 112/74 96 06/02/21 03:54 06/02/21 08:00 06/02/21 08:00 06/02/21 08:00 06/02/21 08:00 Laboratory Results - last 24 hr 06/01/21 12:55: Troponin I < 0.01 06/01/21 15:50: Troponin I 0.05 H 06/01/21 16:16: POC Glucose 158 H 06/01/21 16:21: POC Glucose 116 H 06/01/21 18:10: Troponin I 0.12 H 06/01/21 19:57: POC Glucose 148 H 06/01/21 21:58: Troponin I 0.12 H 06/02/21 05:08: WBC 23.9 H*, RBC 4.27 L, Hgb 12.2 L D, Hct 39.4 L, MCV 92.1, MCH 28.6, MCHC 31.1 L, RDW 15.1, Plt Count 306 D, MPV 9.2, Neut % (Auto) 87.6 H, Lymph % (Auto) 4.2 L, [place] % (Auto) 7.9, Eos % (Auto) 0.0 L, Baso % (Auto) 0.1, Neut # (Auto) 20.9 H, Lymph # (Auto) 1.0, [place] # (Auto) 1.9 H, Eos # (Auto) 0.0, Baso # (Auto) 0.0, Total Counted 100, Neutrophils % (Manual) 86 H, Lymphocytes % (Manual) 5 L, Monocytes % (Manual) 7, Eosinophils % (Manual) 2, Platelet Estimate Normal, RBC Morphology Normal 06/02/21 05:08: Sodium 141, Potassium 3.3 L D, Chloride 115 H, Carbon Dioxide 18 L, Anion Gap 11.3, BUN 21 H, Creatinine 0.70, Estimated Creat Clear 83, Estimated GFR 111, Est GFR ( Amer) 134, Glucose 113 H D, Calcium 6.4 L 06/02/21 05:27: POC Glucose 125 H I & O for Last 24 hours: Intake & Output 05/30/21 05/31/21 06/01/21 06/02/21 23:59 23:59 23:59 23:59 Intake Total 1042 / 1042 1727 / 1727 60 / 60 620 / 620 Output Total 525 / 525 200 / 200 800 / 800 900 / 900 Balance 517 / 517 1527 / 1527 -740 / -740 -280 / -280 Weight 191 lb 12.835 oz 196 lb 3.382 oz 193 lb 12.581 oz 195 lb 12.328 oz Narrative: Telemetry strip shows sinus rhythm with a rate of 82. Echocardiogram shows: 1. Limited echocardiogram was performed pre and post pericardiocentesis. 2. Prepericardiocentesis echocardiogram showed moderate to large sized pericardial effusion with intermittent collapse of the right ventricle in diastole raising the concerns for presence of tamponade physiology. Normal left ventricular systolic function noted. 3. Post pericardiocentesis there is no significant pericardial effusion noted. - Constitutional no acute distress, average body habitus - *Routine HEENT Exam Head: Present: normocephalic, atraumatic Eye: Present: EOMI, PERRL ENT: Present: mucous membranes moist - *Routin
--- NOTE | 2021-06-02 13:00 | HMH.ACPN2 ---
Internal Medicine - PN: Subj *Date: 06/02/21 *Time: 13:00 Interval history: The patient's family, specifically the patient's ex- who apparently is now his power of etcher enameling, has requested that I assume care of the patient. I spoke with Dr. Roberts regarding this. Dr. Roberts graciously has agreed to transfer the patient to my care consistent with the family's request. I have extensively reviewed the chart. The patient is a 71-year-old white male with a history of metastatic lung cancer. We do not have records from his past treatment for metastatic lung cancer that are available to us at this time. He apparently has not seen Dr. Martinez for oncology at [facility]. The patient presented with altered mental status and right arm weakness on 1122. He was seen in the emergency room and admitted with the hope that he might be transferred to [facility]. This transfer has not materialized and we do not expect it to occur at this point. His CT of the brain on 122 showed evidence of metastatic disease on the reading but subsequent MRI on 122 mentioned over only the left middle cerebral artery acute ischemic episode. It did not mention brain mets. CT on 124 mentioned vasogenic and cytotoxic edema. Yesterday the patient was found to have pericardial tamponade requiring paracentesis resulting in 600 cc of serosanguineous drainage. Subsequently he drained another 750 with the drain being left in place. This morning he has had only about 100 cc out and this has not been progressive. It is still serosanguineous. Cardiology is placing orders at this time for analysis of the pericardial effusion. The patient has a past history of smoking. Smoking was discontinued by the family 3 months ago. The patient is a paranoid schizophrenic. He has been in long-term care. Cultures are showing gram-negative organisms. The patient is on vancomycin. Dr. Lilly he is being consulted today regarding his pulmonary status. Exam Vital signs and Labs for Last 24 Hours: Temp Pulse Resp BP Pulse Ox 98.3 F 78 16 112/74 96 06/02/21 03:54 06/02/21 08:00 06/02/21 08:00 06/02/21 08:00 06/02/21 08:00 Laboratory Results - last 24 hr 06/01/21 12:55: Troponin I < 0.01 06/01/21 15:50: Troponin I 0.05 H 06/01/21 16:16: POC Glucose 158 H 06/01/21 16:21: POC Glucose 116 H 06/01/21 18:10: Troponin I 0.12 H 06/01/21 19:57: POC Glucose 148 H 06/01/21 21:58: Troponin I 0.12 H 06/02/21 05:08: WBC 23.9 H*, RBC 4.27 L, Hgb 12.2 L D, Hct 39.4 L, MCV 92.1, MCH 28.6, MCHC 31.1 L, RDW 15.1, Plt Count 306 D, MPV 9.2, Neut % (Auto) 87.6 H, Lymph % (Auto) 4.2 L, [place] % (Auto) 7.9, Eos % (Auto) 0.0 L, Baso % (Auto) 0.1, Neut # (Auto) 20.9 H, Lymph # (Auto) 1.0, [place] # (Auto) 1.9 H, Eos # (Auto) 0.0, Baso # (Auto) 0.0, Total Counted 100, Neutrophils % (Manual) 86 H, Lymphocytes % (Manual) 5 L, Monocytes % (Manual) 7, Eosinophils % (Manual) 2, Platelet Estimate Normal, RBC Morphology Normal 06/02/21 05:08: Sodium 141, Potassium 3.3 L D, Chloride 115 H, Carbon Dioxide 18 L, Anion Gap 11.3, BUN 21 H, Creatinine 0.70, Estimated Creat Clear 83, Estimated GFR 111, Est GFR ( Amer) 134, Glucose 113 H D, Calcium 6.4 L 06/02/21 05:27: POC Glucose 125 H I & O for Last 24 hours: Intake & Output 05/31/21 06/01/21 06/02/21 06/03/21 11:59 11:59 11:59 11:59 Intake Total 2649 / 2649 120 / 120 680 / 680 Output Total 375 / 375 1700 / 1700 Balance 2274 / 2274 120 / 120 -1020 / -1020 Weight 196 lb 3.382 oz 193 lb 12.581 oz 195 lb 12.328 oz - Constitutional mild distress (The patient is awake. Does respond with garbled speech. He is dyspneic and wheezing.) - *Routine HEENT Exam Head: Present: normocephalic, abrasion (Facial abrasions noted) Eye: Present: EOMI, PERRL ENT: Present: mucous membranes moist - *Routine Neck Exam Present: supple, carotid bruit (Known bilateral carotid disease.). Absent: JVD (None at this time), lymphadenopathy - *Routi
--- NOTE | 2021-06-02 13:25 | CT_ITS ---
FINAL REPORT TECHNIQUE: Axial images were obtained through the chest without contrast. CLINICAL HISTORY: H/O Lung cancer, sob FINDINGS: There are a few scattered mediastinal lymph nodes. Precarinal lymph nodes measure up to 1.9 cm on image 89 of series 3. Subcarinal lymph nodes measure up to 2.7 cm. There are advanced changes of centrilobular emphysema. There is dense opacity in the right middle lobe which is probably due to acute pneumonia. The heart size is normal. There is dense coronary artery calcification. There is no pericardial effusion. There are moderate bilateral pleural effusions. Limited images of the upper abdomen demonstrate a partially calcified gallbladder wall. No suspicious infiltrate or nodule identified. IMPRESSION: Dense airspace opacity in the right middle lobe, probably due to acute pneumonia. Bilateral pleural effusions. Mild mediastinal adenopathy, favor reactive. Follow-up CT recommended. Partial porcelain gallbladder. Reviewed, Interpreted and Dictated by Harish Kumar MD Transcribed by Tea Akins Authenticated by Harish Kumar MD on 06/02/2021 03:17:30 PM [facility]
--- NOTE | 2021-06-02 13:25 | HMH.PULMCON ---
*Admission Date: 05/28/21 *Reason for consult:: History of lung cancer, pneumonia *History of present illness: Mr. Santana is a 71-year-old male greater than [id number] smoking carries a self-reported diagnosis of lung cancer presented to the hospital with worsening right-sided weakness and stroke alert and pulmonary was called for further management. [facility] History Medical History: Reports:: Anxiety, Cancer (lung), Congestive Heart Failure, Chronic Obstructive Pulmonary Disease (COPD), Coronary Artery Disease, Depression, Diabetes Mellitus Type 2, Hyperlipidemia, Hypertension, Lung Disease Denies:: Diabetes Mellitus Type 1, Internal Pacemaker, MRSA, Seizures *Have you ever received a pneumonia vaccine?: No *Have you received a flu vaccine this season?: No Other Medical History: Reports: Arthritis. Denies: Blood Transfusion Reaction Anesthesia experience/problems:: unable to optain Laterality Cases: Right: Other Other Surgeries: Yes: Cardiac Catheterization, Cardiac Surgery, Colonoscopy, Coronary Stent, EGD, Other. No: Pacemaker Amputation: Yes (right below knee) Fractures: No - *Social History Smoking Status: Former smoker Tobacco Type: cigarettes # Packs/Day (cigarettes): 1 #Yrs smoked (if former smoker): 50 Alcohol Intake: never Substance Use Type: denies use *Occupational Status:: disabled Housing: house Household Members: children *Travel in the last 8 weeks: None - Psychiatric History Pschychiatric History:: Reports:: Anxiety, Depression Family Hx:: Coronary Artery Disease ROS - Review of Systems Limited given patient's recent stroke and slurred speech - Card Reports shortness of breath, Reports shortness of breath with activity - Resp Respiratory: Denies excessive phlegm production - [place] Musculoskeletal: Reports muscle weakness Meds Home Medications Medication Instructions Recorded Confirmed Type acetaminophen 500 mg tablet 500 mg PO Q6H PRN #90 tab 05/26/18 05/28/21 Rx Sennosides/Docusate Sodium 1 tab PO QHS 09/12/18 05/28/21 History [Sennosides-Docusate Sodium Tab] bisacodyl 10 mg rectal suppository 10 mg MS DAILY PRN 11/27/19 05/28/21 History albuterol sulfate 90 mcg/actuation 2 puff INHALATION Q4-6H PRN #8.5 g 11/30/20 05/28/21 Rx aerosol inhaler linagliptin 5 mg tablet 5 mg PO DAILY #90 tab 11/30/20 05/28/21 Rx ipratropium 0.5 mg-albuterol 3 mg 3 ml INHALATION Q4-6H PRN #180 ml 05/18/21 05/28/21 Rx (2.5 mg base)/3 mL nebulization soln Aspirin [Low Dose Aspirin EC] 81 mg PO DAILY 05/28/21 05/28/21 History Clopidogrel Bisulfate [Plavix] 75 mg PO DAILY 05/28/21 05/28/21 History Docusate Sodium 100 mg PO DAILY PRN 05/28/21 05/28/21 History Fluoxetine HCl 60 mg PO DAILY 05/28/21 05/28/21 History Fluticasone/Umeclidin/Vilanter 1 inh INHALATION DAILY 05/28/21 05/28/21 History [Trelegy Ellipta] Metformin HCl [Metformin 1000mg 1,000 mg PO BID 05/28/21 05/28/21 History Tablets] Pantoprazole Sodium 40 mg PO HS 05/28/21 05/28/21 History Simvastatin 40 mg PO HS 05/28/21 05/28/21 History Sucralfate [Sucralfate 1gm 1 g PO BID 05/28/21 05/28/21 History Tab] Trazodone HCl 50 mg PO HS 05/28/21 05/28/21 History glipiZIDE [Glucotrol 5mg tablet] 5 mg PO DAILY 05/28/21 05/28/21 History risperiDONE [Risperidone] 1 mg PO HS 05/28/21 05/28/21 History triazolam 0.25 mg tablet 0.25 mg PO ONCE #1 tab 06/01/21 Rx Allergies Allergy/AdvReac Type Severity Reaction Status Date / Time No Known Allergies Allergy Verified 05/18/21 08:41 Exam - Constitutional Constitutional:: Absent: no acute distress, comfortable - HENMT Exam HENMT: Present: normocephalic, atraumatic Comment:: Mouth and tongue deviation noted - Eye Exam Eyes:: Present: normal appearance both eyes and related structures - Neck Exam Neck:: Present: normal visual inspection - Respiratory Exam Respiratory:: Present: no respiratory distress, wheezing - Cardiovascular Exam Cardiac:: Present: S1, S2 - GI Ex
[2021-06-02 13:30] LABS: Vancomycin,Trough 14.3 ug/mL (5.0-10.0)
[2021-06-02 13:50] LABS: Source, Body Fld. Pericardial Fluid
[2021-06-02 13:51] LABS: Appearance,Body Fld. Bloody; RBC,Body Fluid 108 cells/uL (< 10 X 10^3); TNC,Body Fluid 3381 cells/uL (< 1000); Volume,Body Fld. 4 mL
[2021-06-02 14:47] LABS: Mononuclear WBCs,Body Fluid 89 %; Polynuclear WBC,Body Fluid 11 %
[2021-06-02 17:15] LABS: POC Glucose,Bedside 193 (70-110)
[2021-06-02 17:59] LABS: Vancomycin,Peak 29.7 ug/ml (11-39)
--- NOTE | 2021-06-02 19:06 | PC.NURSE ---
PT IS RESTING IN BED. PT HAS BEEN RESTLESS ON AND OFF T/O THE SHIFT. PT IS STILL DIFFICULT TO COMMUNICATE WITH DUE TO SLURRED SPEECH. RT SIDED FACIAL DROOP. PERICARDIAL DRAIN NOTED (EMPTIED 125 ML'S THIS SHIFT). LUNG SOUNDS HAVE SCATTERED WHEEZES. ABDOMEN SOFT/NON TENDER WITH ACTIVE BOWEL SOUNDS. RBKA. PT WILL BE STEP-DOWN PER . WILL CONTINUE TO MONITOR.
[2021-06-02 20:29] LABS: POC Glucose,Bedside 214 (70-110)
[2021-06-03] VITALS (16 sets, daily range): BP systolic 106–170; BP diastolic 56–110; PULSE 67–106; RESP 18–28; TEMP 36.2–36.9; O2SAT 91–100; BMI 28.0
--- NOTE | 2021-06-03 06:00 | XR_ITS ---
PROCEDURE INFORMATION: Exam: XR Chest Exam date and time: 06/03/2021 6:00 AM Age: 71 years old Clinical indication: Condition or disease; Other: C cardiac tamponade TECHNIQUE: Imaging protocol: XR of the chest. Views: 1 view. COMPARISON: CT CHEST WO CON 06/02/2021 1:49 PM FINDINGS: Lungs: Diffuse right-sided airspace disease is noted. Some patchy left-sided airspace disease is present. Pleural spaces: Unremarkable. No pleural effusion. No pneumothorax. Heart/Mediastinum: Unremarkable. No cardiomegaly. Bones/joints: Unremarkable. IMPRESSION: Stable right greater than left airspace disease.
[2021-06-03 06:09] LABS: POC Glucose,Bedside 169 (70-110)
[2021-06-03 06:34] LABS: Basophils % 0.2 % (0.1-2.0); Eosinophils % 0.1 % (0.1-12.0); Hemoglobin 12.6 g/dL (14.1-18.0); Lymphocytes # 0.8 K/mm3 (0.7-4.5); Lymphocytes % 4.1 % (10-50); Mean Corpuscular HGB Conc 30.8 g/dL (31.8-35.4); Mean Corpuscular Hemoglobin 28.5 pg (27.0-31.2); Mean Corpuscular Volume 92.4 fl (80-94); Mean Platelet Volume 9.2 fl (7.4-10.4); Neutrophils # 18.4 K/mm3 (1.8-7.8); Neutrophils % 90.7 % (37.0-80.0); Platelet Count 306 K/mm3 (142-424); Red Blood Count 4.43 M/mm3 (4.60-6.20); Red Cell Distribution Width 15.3 % (11.5-17.5); White Blood Count 20.3 K/mm3 (4.8-10.8)
[2021-06-03 06:37] LABS: MANUAL DIFFERENTIAL MANUAL DIFFERENTIAL (MANUAL DIFF)
[2021-06-03 06:38] LABS: Anion Gap 9.2 mEq/L (5-15); Blood Urea Nitrogen 17 mg/dl (9-20); Calcium 8.2 mg/dl (8.4-10.2); Carbon Dioxide 25 mmol/L (22.0-30.0); Chloride 107 mmol/L (98-107); Creatinine Clearance Estimated 85 mL/min (50-200); Estimated Glomerular Filt Rate 111 ml/min (>60); GFR (African American) 134 ML/MIN (>60); Glucose 170 mg/dl (74-100); Potassium 4.2 mmoL/L (3.5-5.1); Sodium 137 mmol/L (136-145)
[2021-06-03 07:13] LABS: Lymphocytes % 5 % (10-50); Monocytes % 3 % (2-9); Neutrophils % 92 % (42-76); Total Cells Counted 100
[2021-06-03 07:14] LABS: Anisocytosis 1+; Hypochromasia 1+; Platelet Estimate Normal
--- NOTE | 2021-06-03 09:07 | HMH.ACPN2 ---
Internal Medicine - PN: Subj *Date: 06/03/21 *Time: 09:07 Interval history: O: The patient remains restless in bed. He does respond to questions though his speech is garbled. He still does not use the right arm. A bruises noted anteriorly at the right shoulder. His facial abrasions are improving. He is moving air fairly well but he has expiratory wheezing. Leg edema is minimal. The drain from the pericardial sac is still in place with 100 cc. Reportedly this is over the past [address] Bazzi plans to pull this drain this morning. Exam Vital signs and Labs for Last 24 Hours: Temp Pulse Resp BP Pulse Ox 98.1 F 68 22 134/76 95 06/02/21 18:00 06/03/21 07:44 06/03/21 07:44 06/03/21 07:44 06/03/21 07:44 Laboratory Results - last 24 hr 06/01/21 14:10: Fluid Source Pericardial fluid, Fluid Volume 4, Fluid Appearance Bloody, Fluid RBC (Auto) 108, Fld Tot Nucleated Cell 3381, Fld Polynuclear WBCs % 11, Fld Mononuclear WBCs % 89 06/02/21 12:35: Vancomycin Trough 14.3 H 06/02/21 16:13: POC Glucose 193 H 06/02/21 17:06: Vancomycin Peak 29.7 06/02/21 20:22: POC Glucose 214 H 06/03/21 05:20: WBC 20.3 H*, RBC 4.43 L, Hgb 12.6 L, Hct 41.0 L, MCV 92.4, MCH 28.5, MCHC 30.8 L, RDW 15.3, Plt Count 306, MPV 9.2, Neut % (Auto) 90.7 H, Lymph % (Auto) 4.1 L, [place] % (Auto) 5.0, Eos % (Auto) 0.1, Baso % (Auto) 0.2, Neut # (Auto) 18.4 H, Lymph # (Auto) 0.8, [place] # (Auto) 1.0, Eos # (Auto) 0.0, Baso # (Auto) 0.0, Total Counted 100, Neutrophils % (Manual) 92 H, Lymphocytes % (Manual) 5 L, Monocytes % (Manual) 3, Platelet Estimate Normal, Hypochromasia 1+, Anisocytosis 1+ 06/03/21 05:20: Sodium 137, Potassium 4.2 D, Chloride 107, Carbon Dioxide 25, Anion Gap 9.2, BUN 17, Creatinine 0.70, Estimated Creat Clear 85, Estimated GFR 111, Est GFR ( Amer) 134, Glucose 170 H, Calcium 8.2 L 06/03/21 06:01: POC Glucose 169 H I & O for Last 24 hours: Intake & Output 05/31/21 06/01/21 06/02/21 06/03/21 11:59 11:59 11:59 11:59 Intake Total 2649 / 2649 120 / 120 680 / 680 2819 / 2819 Output Total 375 / 375 2200 / 2200 1175 / 1175 Balance 2274 / 2274 120 / 120 -1520 / -1520 1644 / 1644 Weight 196 lb 3.382 oz 193 lb 12.581 oz 195 lb 12.328 oz 200 lb 9.93 oz Microbiology Reports for the Last 24 Hours: Microbiology 06/01/21 14:10 Pericardial Fluid - Pericardial Gram Stain - Final 05/28/21 20:50 Blood Blood Culture - Final NO GROWTH AFTER 5 DAYS 05/28/21 20:50 Blood Blood Culture - Preliminary Radiology Reports for the Last 24 Hours: CT scan from 06/02/2021 ... IMPRESSION: Dense airspace opacity in the right middle lobe, probably due to acute pneumonia. Bilateral pleural effusions. Mild mediastinal adenopathy, favor reactive. Follow-up CT recommended. Partial porcelain gallbladder. - Constitutional no acute distress (Restless and moving about.) - *Routine HEENT Exam Head: Present: normocephalic, abrasion Eye: Present: EOMI, PERRL ENT: Present: mucous membranes moist - *Routine Neck Exam Present: supple. Absent: JVD, lymphadenopathy - *Routine Respiratory Exam Present: prolonged expiratory phase, wheezes - *Routine Cardiovascular Exam Present: RRR - *Routine Abdominal Exam Present: soft, normoactive bowel sounds, obese. Absent: tenderness - *Routine Extremities Exam Absent: cyanosis, clubbing, edema - *Routine Skin Exam Present: warm, wounds (Facial wounds healing. Bruise of the right anterior shoulder.). Absent: rash - *Routine Neurological Exam Present: alert, oriented X3. Absent: moving all extremities Assessment and Plan (1) Cardiac tamponade Status: Acute Category: Medical Code(s): I31.4 - Cardiac tamponade (2) Brain metastases Status: Acute Category: Medical Code(s): C79.31 - Secondary malignant neoplasm of brain (3) Carotid stenosis, bilateral Status: Acute Category: Medical Code(s): I65.23 - Occlusion and st
--- NOTE | 2021-06-03 10:20 | HMH.PHACONS ---
- Pharmacy Consult Date: 06/03/21 Time: 10:20 Referring provider: MARTHA Reason for Consult:: VANCOMYCIN THERAPY MANAGEMENT Allergies and ADEs:: Allergies Allergy/AdvReac Type Severity Reaction Status Date / Time No Known Allergies Allergy Verified 05/18/21 08:41 Home Medications:: Home Medications Medication Instructions Recorded Confirmed Type acetaminophen 500 mg tablet 500 mg PO Q6H PRN #90 tab 05/26/18 05/28/21 Rx Sennosides/Docusate Sodium 1 tab PO QHS 09/12/18 05/28/21 History [Sennosides-Docusate Sodium Tab] bisacodyl 10 mg rectal suppository [address] DAILY PRN 11/27/19 05/28/21 History albuterol sulfate 90 mcg/actuation 2 puff INHALATION Q4-6H PRN #8.5 g 11/30/20 05/28/21 Rx aerosol inhaler linagliptin 5 mg tablet 5 mg PO DAILY #90 tab 11/30/20 05/28/21 Rx ipratropium 0.5 mg-albuterol 3 mg 3 ml INHALATION Q4-6H PRN #180 ml 05/18/21 05/28/21 Rx (2.5 mg base)/3 mL nebulization soln Aspirin [Low Dose Aspirin EC] 81 mg PO DAILY 05/28/21 05/28/21 History Clopidogrel Bisulfate [Plavix] 75 mg PO DAILY 05/28/21 05/28/21 History Docusate Sodium 100 mg PO DAILY PRN 05/28/21 05/28/21 History Fluoxetine HCl 60 mg PO DAILY 05/28/21 05/28/21 History Fluticasone/Umeclidin/Vilanter 1 inh INHALATION DAILY 05/28/21 05/28/21 History [Trelegy Ellipta] Metformin HCl [Metformin 1000mg 1,000 mg PO BID 05/28/21 05/28/21 History Tablets] Pantoprazole Sodium 40 mg PO HS 05/28/21 05/28/21 History Simvastatin 40 mg PO HS 05/28/21 05/28/21 History Sucralfate [Sucralfate 1gm 1 g PO BID 05/28/21 05/28/21 History Tab] Trazodone HCl 50 mg PO HS 05/28/21 05/28/21 History glipiZIDE [Glucotrol 5mg tablet] 5 mg PO DAILY 05/28/21 05/28/21 History risperiDONE [Risperidone] 1 mg PO HS 05/28/21 05/28/21 History triazolam 0.25 mg tablet 0.25 mg PO ONCE #1 tab 06/01/21 Rx Height: 1.8 m Weight: 91 kg Laboratory Results:: Laboratory Results - last 24 hr 06/01/21 14:10: Fluid Source Pericardial fluid, Fluid Volume 4, Fluid Appearance Bloody, Fluid RBC (Auto) 108, Fld Tot Nucleated Cell 3381, Fld Polynuclear WBCs % 11, Fld Mononuclear WBCs % 89 06/02/21 12:35: Vancomycin Trough 14.3 H 06/02/21 16:13: POC Glucose 193 H 06/02/21 17:06: Vancomycin Peak 29.7 06/02/21 20:22: POC Glucose 214 H 06/03/21 05:20: WBC 20.3 H*, RBC 4.43 L, Hgb 12.6 L, Hct 41.0 L, MCV 92.4, MCH 28.5, MCHC 30.8 L, RDW 15.3, Plt Count 306, MPV 9.2, Neut % (Auto) 90.7 H, Lymph % (Auto) 4.1 L, [place] % (Auto) 5.0, Eos % (Auto) 0.1, Baso % (Auto) 0.2, Neut # (Auto) 18.4 H, Lymph # (Auto) 0.8, [place] # (Auto) 1.0, Eos # (Auto) 0.0, Baso # (Auto) 0.0, Total Counted 100, Neutrophils % (Manual) 92 H, Lymphocytes % (Manual) 5 L, Monocytes % (Manual) 3, Platelet Estimate Normal, Hypochromasia 1+, Anisocytosis 1+ 06/03/21 05:20: Sodium 137, Potassium 4.2 D, Chloride 107, Carbon Dioxide 25, Anion Gap 9.2, BUN 17, Creatinine 0.70, Estimated Creat Clear 85, Estimated GFR 111, Est GFR ( Amer) 134, Glucose 170 H, Calcium 8.2 L 06/03/21 06:01: POC Glucose 169 H Medical History: Reports:: Anxiety, Cancer (lung), Congestive Heart Failure, Chronic Obstructive Pulmonary Disease (COPD), Coronary Artery Disease, Depression, Diabetes Mellitus Type 2, Hyperlipidemia, Hypertension, Lung Disease Denies:: Diabetes Mellitus Type 1, Internal Pacemaker, MRSA, Seizures Assessment and Plan (1) Cardiac tamponade Status: Acute Category: Medical Code(s): I31.4 - Cardiac tamponade (2) Brain metastases Status: Acute Category: Medical Code(s): C79.31 - Secondary malignant neoplasm of brain (3) Carotid stenosis, bilateral Status: Acute Category: Medical Code(s): I65.23 - Occlusion and stenosis of bilateral carotid arteries (4) Metastatic lung cancer (metastasis from lung to other site) Status: Acute Category: Medical Code(s): C34.90 - Malignant neoplasm of unspecified part of unspecified bronchus or lung (5) Pericardial effusion Status: Acute Category: M
--- NOTE | 2021-06-03 10:39 | HMH.PNCARD ---
Subjective Date: 06/03/21 Time: 08:45 Principal diagnosis: cardiac tamponade Interval history: This is a 70-year-old white gentleman who was admitted to the hospital for stroke versus brain mets. The patient had a CT of the brain that showed questionable brain metastasis and he had an MRI of the brain that showed an acute stroke with no mention of brain metastasis. He had a CT of his chest yesterday which does not mention anything about lung cancer/mass/nodules. The patient did have cardiac tamponade and still has a pericardial drain in place following a pericardiocentesis. His vital signs are stable. He denies any chest pain or pressure. He is still having a very hard time communicating and he is not really answering most of my questions or following my commands. He does not appear to be short of breath today. Exam Vital signs and Labs for Last 24 Hours: Temp Pulse Resp BP Pulse Ox 98.1 F 68 22 134/76 95 06/02/21 18:00 06/03/21 07:44 06/03/21 07:44 06/03/21 07:44 06/03/21 08:00 Laboratory Results - last 24 hr 06/01/21 14:10: Fluid Source Pericardial fluid, Fluid Volume 4, Fluid Appearance Bloody, Fluid RBC (Auto) 108, Fld Tot Nucleated Cell 3381, Fld Polynuclear WBCs % 11, Fld Mononuclear WBCs % 89 06/02/21 12:35: Vancomycin Trough 14.3 H 06/02/21 16:13: POC Glucose 193 H 06/02/21 17:06: Vancomycin Peak 29.7 06/02/21 20:22: POC Glucose 214 H 06/03/21 05:20: WBC 20.3 H*, RBC 4.43 L, Hgb 12.6 L, Hct 41.0 L, MCV 92.4, MCH 28.5, MCHC 30.8 L, RDW 15.3, Plt Count 306, MPV 9.2, Neut % (Auto) 90.7 H, Lymph % (Auto) 4.1 L, [place] % (Auto) 5.0, Eos % (Auto) 0.1, Baso % (Auto) 0.2, Neut # (Auto) 18.4 H, Lymph # (Auto) 0.8, [place] # (Auto) 1.0, Eos # (Auto) 0.0, Baso # (Auto) 0.0, Total Counted 100, Neutrophils % (Manual) 92 H, Lymphocytes % (Manual) 5 L, Monocytes % (Manual) 3, Platelet Estimate Normal, Hypochromasia 1+, Anisocytosis 1+ 06/03/21 05:20: Sodium 137, Potassium 4.2 D, Chloride 107, Carbon Dioxide 25, Anion Gap 9.2, BUN 17, Creatinine 0.70, Estimated Creat Clear 85, Estimated GFR 111, Est GFR ( Amer) 134, Glucose 170 H, Calcium 8.2 L 06/03/21 06:01: POC Glucose 169 H I & O for Last 24 hours: Intake & Output 05/31/21 06/01/21 06/02/21 06/03/21 23:59 23:59 23:59 23:59 Intake Total 1727 / 1727 60 / 60 3439 / 3439 Output Total 200 / 200 800 / 800 1974 / 1974 600 / 600 Balance 1527 / 1527 -740 / -740 1464 / 1464 -600 / -600 Weight 196 lb 3.382 oz 193 lb 12.581 oz 195 lb 12.328 oz 200 lb 9.93 oz Microbiology Reports for the Last 24 Hours: Microbiology 06/01/21 14:10 Pericardial Fluid - Pericardial Gram Stain - Final 05/28/21 20:50 Blood Blood Culture - Final NO GROWTH AFTER 5 DAYS 05/28/21 20:50 Blood Blood Culture - Preliminary Narrative: Telemetry strip is sinus rhythm with a rate of 86. - Constitutional no acute distress, average body habitus - *Routine HEENT Exam Head: Present: normocephalic, atraumatic Eye: Present: EOMI, PERRL ENT: Present: mucous membranes moist - *Routine Neck Exam Present: supple, full ROM, normal carotid upstroke. Absent: JVD, carotid bruit, lymphadenopathy - *Routine Respiratory Exam Present: decreased breath sounds, wheezes - *Routine Cardiovascular Exam Present: RRR, Normal S1, Normal S2. Absent: murmur Comments: Pericardial pigtail drill in place to gravity. - *Routine Abdominal Exam Present: soft, normoactive bowel sounds. Absent: tenderness, distended - *Routine Extremities Exam Present: full ROM, pulses intact, normal capillary refill, amputation (Right leg amputation). Absent: cyanosis, clubbing, edema - *Routine Skin Exam Present: intact, warm. Absent: rash - *Routine Neurological Exam Present: alert, altered mental status Progress Note: A&P (1) Cardiac tamponade Status: Acute (2) Brain metastases Status: Acute (3) Carotid stenosis, bilateral Status: Acute (4) Metastatic lung canc
--- NOTE | 2021-06-03 11:59 | HMH.PULMPN ---
Internal Medicine - PN: Subj *Date: 06/03/21 *Time: 11:59 Interval history: No acute respiratory events overnight. Exam - Constitutional Constitutional:: Present: no acute distress, comfortable - HENMT Exam HENMT: Present: normocephalic - Eye Exam Eyes:: Present: normal appearance both eyes and related structures - Neck Exam Neck:: Present: normal visual inspection - Respiratory Exam Respiratory:: Present: no respiratory distress, wheezing. Absent: able to speak in complete sentences - Cardiovascular Exam Cardiac:: Present: S1, S2 - GI Exam GI:: Present: soft - Skin Exam Skin: Present: warm, no rash - Neurological Exam Neurological: Present: awake, motor sensory deficit. Absent: alert, normal cognition, CN II-XII intact, reflexes normal - Extremities Exam Extremities: Present: no cyanosis, no clubbing Assessment and Plan (1) Cardiac tamponade Status: Acute Category: Medical Code(s): I31.4 - Cardiac tamponade (2) Brain metastases Status: Acute Category: Medical Code(s): C79.31 - Secondary malignant neoplasm of brain (3) Carotid stenosis, bilateral Status: Acute Category: Medical Code(s): I65.23 - Occlusion and stenosis of bilateral carotid arteries (4) Metastatic lung cancer (metastasis from lung to other site) Status: Acute Category: Medical Code(s): C34.90 - Malignant neoplasm of unspecified part of unspecified bronchus or lung (5) Pericardial effusion Status: Acute Category: Medical Code(s): I31.3 - Pericardial effusion (noninflammatory) (6) Carotid artery stenosis Status: Chronic Qualifiers: Laterality: unspecified laterality Qualified Code(s): I65.29 - Occlusion and stenosis of unspecified carotid artery Category: Medical Code(s): I65.29 - Occlusion and stenosis of unspecified carotid artery (7) Chronic obstruct airways disease Status: Chronic Qualifiers: COPD type: chronic bronchitis Chronic bronchitis type: mixed simple and mucopurulent Qualified Code(s): J41.8 - Mixed simple and mucopurulent chronic bronchitis Category: Medical Code(s): J44.9 - Chronic obstructive pulmonary disease, unspecified (8) Coronary arteriosclerosis Status: Chronic Category: Medical Code(s): I25.10 - Atherosclerotic heart disease of [place] coronary artery without angina pectoris (9) Diabetes type 2, controlled Status: Chronic Qualifiers: Diabetes mellitus associate doctor insulin use: without fci use Diabetes mellitus complication status: with circulatory complication Diabetes mellitus complication detail: with other circulatory complications Qualified Code(s): E11.59 - Type 2 diabetes mellitus with other circulatory complications Category: Medical Code(s): E11.9 - Type 2 diabetes mellitus without complications (10) History of right below knee amputation Status: Chronic Category: Surgical Code(s): Z89.511 - Acquired absence of right leg below knee (11) Hyperlipidemia Status: Chronic Qualifiers: Hyperlipidemia type: mixed hyperlipidemia Qualified Code(s): E78.2 - Mixed hyperlipidemia Category: Medical Code(s): E78.5 - Hyperlipidemia, unspecified (12) Schizophrenia Status: Chronic Qualifiers: Schizophrenia type: unspecified Qualified Code(s): F20.9 - Schizophrenia, unspecified Category: Medical Code(s): F20.9 - Schizophrenia, unspecified (13) Tobacco dependence syndrome Status: Chronic Category: Medical Code(s): F17.200 - Nicotine dependence, unspecified, uncomplicated - Assessment and plan all Dx Assessment and Plan for all problems:: #History of lung cancer: #Pneumonia: 71-year-old greater than 91-[id number]-ryat smoking , self reported history of lung cancer Patient MRI does show MCA that has been managed conservatively, Initial CT and CTA head scan on admission reported to have brain lesions consistent with metastatic disease, however subsequent MRI did not comment on the
--- NOTE | 2021-06-03 12:16 | HMH.PTEV ---
Physical Therapy Evaluation Rehab PT IP Evaluation Start: 06/03/21 09:15 Freq: ONCE Status: Active Protocol: Document 06/03/21 12:10 PHOBHARATI (Rec: 06/03/21 12:16 PHORNE [id number]) Subjective/History History History 71 yowm adm to [facility] with CVA with R UE paresis. He has obvious expressive aphasia and is only able to provide limited hx. Subjective Subjective He has no c/o pain at this time. Rehab PT IP Eval Objective Appearance Patient Behavior Appropriate Patient Orientation Person Difficulty following instructions none Speech Pattern Slurred,Garbled,Aphasic, Difficulty Finding Words Ambulation Patient Able to Ambulate No Balance Ability to Arise Able, uses arms to help Sitting Balance Steady, safe Dynamic Sitting Balance Ability Good Transfers Bed Transfer Ability Minimal x 1 (25% assist) ROM All Extremities PT ROM Status WFL MMT RLE PT MMT WFL RUE PT MMT ABN Abnormal MMT Grade flaccid Rehab PT IP prob,goals,plan Problems Date of Evaluation: 06/03/21 PT IP Problems Bed Mobility,Transfers,Balance ,Self care Rehab Potential Rehab Potential Good Plan PT Intervention Plan Bed Mobility,Transfers,Balance ,Self care,Therapeutic Exercise PT Plan Frequency BID Discharge Goals Bed Transfer Ability Minimal x 1 (25% assist) Sit to Stand Chair Transfer Ability Maximum x 1 (75% assist) Discharge Plan PT Discharge Plan Pt is most appropriate for rehab placement once medically stable. G -code Required No Eval Complexity Eval Charge Codes 50833 - High Complexity PHYSICIAN CERTIFICATION: I certify the specified therapy services for Joseph Santana SR are required, authorized, and reviewed every 30 days.
[2021-06-03 12:42] LABS: Albumin, Body Fluid 2.6 g/dL (Not Estab.); Glucose, Body Fluid 72 mg/dL (.); LD, Body Fluid 435 IU/L (.); Protein, Body Fluid 4.4 g/dL (.)
--- NOTE | 2021-06-03 13:26 | FL_ITS ---
FINAL REPORT CLINICAL HISTORY: 1 min fluoro time dysphagia FINDINGS: MODIFIED BARIUM SWALLOW HISTORY: Dysphagia. FINDINGS: Fluoroscopy was provided for the speech pathologist to evaluate the swallowing mechanism. The patient was given several different consistencies of barium while the swallow was visualized fluoroscopically. The report of the speech pathologist should be consulted prior to making dietary decisions. IMPRESSION: Modified barium swallow under fluoroscopic guidance. Please see speech pathologist's report for further details and dietary recommendations. Fluoroscopy time was 1 minute A total of 36 cine runs were saved Reviewed, Interpreted and Dictated by Farhad Barnes III, MD Transcribed by Temi Evans PA-C Authenticated by Farhad Barnes III, MD on 06/24/2021 09:51:38 AM [facility]
--- NOTE | 2021-06-03 13:36 | HMH.OTEV ---
OT Inpatient Evaluation Rehab OT IP Evaluation Start: 06/03/21 10:55 Freq: ONCE Status: Complete Protocol: Document 06/03/21 13:30 ESPERANZA (Rec: 06/03/21 13:36 [id number] Rehab OT IP Assessment Subjective History Pt oriented to person and place on arrival. Pt agreeable to engage in therapy evaluation. Pt was admitted via ED on 05/28/21 due to Right sided weakness and numbness due to possible CVA. The following information was copied from history and physical report: this pt who lives at home and had prev been in ecf with hx of lung cancer in past - pt with altered mental status and dec use of rt upper ext - pt has not felt well over the last week with dec activity and po intake -pt was seen in the ed -71 yo male w/ hx CAD s /p PCI, carotid artery stenosis, DM, HTN, HLD, right BKA, schizophrenia, dementia, presents for right sided weakness and numbness. LKN 1100 on 05/28/21. Limited history from patient 2/2 AMS. Denies any pain. Motions that right hand is weak. Reportedly EMS called to patient's residence after ex- noticed patient right arm weak and numb. No other family at bedside to provide further history. Liza (ex- of pt) called but no answer on phone . Olimpia (daughter of Liza) said patient facial droop is new and right arm weakness is new. No history of strokes dx includes but not limited to acs, lvo, ich, metastasis. presents with altered mental status, rue motor/sensory deficit. protecting airway. wbc 20k. ct head shows bilateral cerebral nodules w/
--- NOTE | 2021-06-03 15:07 | HMH.SLMBS2 ---
Speech & Language Evaluation Speech/Language Mod Barium Swallow Start: 06/03/21 13:26 Freq: ONCE Status: Complete Protocol: Document 06/03/21 14:51 AMBREEN (Rec: 06/03/21 15:06 AMBREEN [id number]) General Information General Current Food Consistancy Regular,Thin Liquids Dentition Edentulous Oxygen Status Nasal Cannula Facial Symmetry Asymmetrical Ability to Follow Directions Poor Communication Ability Severe Impairment MBS Recommendations Diet Dietary Recommendations Pureed,Honey Liquids Treatment/Strategies Strategy/Precaution Recommend Sitting Upright (90 deg),Small Bites and Sips Mod Barium Swallow Impressions Summary and Impressions Oral Phase Impression Moderate Impairment Oral Phase Summary Anterior loss noted with thin liquids secondary to asymmetrical labial droop. Prolonged mastication and oral manipulation due to lack of dentition. Prespill of liquids noted due to back of tongue weakness. Pharyngeal Phase Impression Severe Impairment Pharyngeal Phase Summary Gross aspiration noted with thin liquids. Moderate residue in the pharynx with nectar thick liquids. Mild residue noted with honey thin liquids, pudding, and puree. Severe pharyngeal residue was noted in the pharynx before the swallow 2' prespill with mechanical soft diet, which reduced upon completion of the swallow but did not completely clear. Speech/Language MBS Assessment/Goals/Plan Assessment Date of Evaluation: 06/03/21 Evaluation Type Initial Certification Assessment/Problems Dysphagia following CVA. Does Patient Qualify for Service Yes Qualify/Failure Comment Based on the results of the modified barium swallow study, patient does qualify for skilled speech therapy services at this time. Recommendations PHYSICIAN CERTIFICATION: The specified therapy services are required, authorized, and reviewed every 30 days. Pt will be seen # times/week 3 for # weeks 4 Diet Recommendations Pureed Liquid Type Recommendations Honey Consistency SL Swallow Guidelines Assist
--- NOTE | 2021-06-03 15:17 | HMH.SLDYSPHA ---
Speech & Language Evaluation Speech/Language Dysphagia Evaluation Start: 06/03/21 11:41 Freq: ONCE Status: Active Protocol: Document 06/03/21 11:00 TENACASANDRA (Rec: 06/03/21 15:17 AMBREEN [id number]) Dysphagia Assess/Goals/Plan Assessment Date of Evaluation: 06/03/21 Evaluation Type Initial Certification Assessment/Problems Dysphagia following CVA Does Patient Qualify for Service No Qualify/Failure Comment Based on the results of the clinical swallow evaluation, patient requires further testing to determine if he qualifies for skilled speech therapy services. Recommendations PHYSICIAN CERTIFICATION: The specified therapy services are required, authorized, and reviewed every 30 days. Diet Recommendations NPO until MBSS Plan Pt/Guardian verbally ack understanding Yes of dx/prognosis/goals Pt/Guardian verbally ack understanding Yes of/consent to tx prog G -code Required No Education Instructions provided CSE results and recommendation for MBSS discussed with pt, care management, and nursing. Pt/Caregiver able to recall information Unable to ind. understand Reinforcement needed No Speech & Language HPI History Present Illness Description of Patient Problem Mr. Santana is a 71 year old man presenting with CVA. He is being followed by oncology for lung cancer and brain mets . Rehab Services Assessed Speech therapy Is this evaluation r/t stroke? Yes Language [place]/Spoken in Home [place] General Information General Current Food Consistancy Regular,Thin Liquids Dentition Edentulous Oxygen Status Nasal Cannula Facial Symmetry Asymmetrical Ability to Follow Directions Poor Communication Ability Severe Impairment Dysphagia:Food Presentation Evaluation Food Type Liquid Normal/Thin Liquid Response Falls out of mouth,Coughing after swallow,Clears throat, Wet voice [place] Consistency Liquid Response Coughing after swallow,Clears throat,Wet voice Dysphagia Evaluation Summary Clinical swallow evaluation completed to analyze and assess oropharyngeal swallow. Patient was initially given thin liquids via cup, which resulted in anterior loss of
--- NOTE | 2021-06-03 15:32 | DIET.NUTRFU ---
Patient's diet was downgraded by FI[facility] today following Barium swallow study. Diet changed to pureed with honey thick liquids. Patient has poor prognosis with lung cancer and brain mets. Intake has been poor since admit, supplements in place and assistance with meals needed. IVF in place and labs WNL
[2021-06-04] VITALS (11 sets, daily range): BP systolic 131–163; BP diastolic 71–93; PULSE 78–105; RESP 18–20; TEMP 35.8–36.4; O2SAT 88–98; BMI 27.8
--- NOTE | 2021-06-04 06:00 | XR_ITS ---
PROCEDURE INFORMATION: Exam: XR Chest Exam date and time: 06/04/2021 6:00 AM Age: 71 years old Clinical indication: Shortness of breath; Patient HX: SOA, cardiac tamponade; Additional info: C cardiac tamponade TECHNIQUE: Imaging protocol: XR of the chest. Views: 1 view. COMPARISON: CR XR CHEST PORTABLE 06/03/2021 5:08 AM FINDINGS: Lungs: Patchy opacities in the right hemithorax and left base may represent multifocal pneumonia including COVID-19. Pleural spaces: Unremarkable. No pleural effusion. No pneumothorax. Heart/Mediastinum: Stable cardiac silhouette Bones/joints: Unremarkable. IMPRESSION: Patchy opacities in the right hemithorax and left base may represent multifocal pneumonia including COVID-19.
[2021-06-04 06:27] LABS: Basophils % 0.1 % (0.1-2.0); Hematocrit 41.9 % (42.0-52.0); Hemoglobin 12.9 g/dL (14.1-18.0); Lymphocytes # 0.8 K/mm3 (0.7-4.5); Mean Corpuscular HGB Conc 30.8 g/dL (31.8-35.4); Mean Corpuscular Hemoglobin 28.1 pg (27.0-31.2); Mean Corpuscular Volume 91.3 fl (80-94); Mean Platelet Volume 9.1 fl (7.4-10.4); Monocytes % 4.7 % (1.7-9.3); Neutrophils # 18.7 K/mm3 (1.8-7.8); Neutrophils % 91.1 % (37.0-80.0); Platelet Count 379 K/mm3 (142-424); Red Blood Count 4.59 M/mm3 (4.60-6.20); Red Cell Distribution Width 15.3 % (11.5-17.5); White Blood Count 20.6 K/mm3 (4.8-10.8)
[2021-06-04 06:29] LABS: MANUAL DIFFERENTIAL MANUAL DIFFERENTIAL (MANUAL DIFF)
[2021-06-04 06:36] LABS: Anion Gap 10.5 mEq/L (5-15); Blood Urea Nitrogen 13 mg/dl (9-20); Calcium 8.4 mg/dl (8.4-10.2); Carbon Dioxide 24 mmol/L (22.0-30.0); Chloride 105 mmol/L (98-107); Creatinine Clearance Estimated 84 mL/min (50-200); Estimated Glomerular Filt Rate 132 ml/min (>60); GFR (African American) 160 ML/MIN (>60); Glucose 144 mg/dl (74-100); Potassium 4.5 mmoL/L (3.5-5.1); Sodium 135 mmol/L (136-145)
[2021-06-04 06:49] LABS: Hypochromasia 2+; Lymphocytes % 5 % (10-50); Neutrophils % 83 % (42-76); Platelet Estimate Normal; Total Cells Counted 100
[2021-06-04 09:03] LABS: POC Glucose,Bedside 186 (70-110)
[2021-06-04 09:03] LABS: POC Glucose,Bedside 176 (70-110)
[2021-06-04 09:03] LABS: POC Glucose,Bedside 157 (70-110)
[2021-06-04 09:03] LABS: POC Glucose,Bedside 143 (70-110)
--- NOTE | 2021-06-04 10:53 | HMH.ACPN ---
Internal Medicine - PN: Subj *Date: 06/04/21 *Time: 10:53 Exam Vital signs and Labs for Last 24 Hours: Temp Pulse Resp BP Pulse Ox 97.3 F L 105 H 18 131/84 90 L 06/04/21 08:00 06/04/21 08:00 06/04/21 08:00 06/04/21 08:00 06/04/21 08:00 Laboratory Results - last 24 hr 06/01/21 14:10: Fluid Glucose 72, Fluid Total Protein 4.4, Fluid Albumin 2.6, Fluid LDH 435 06/03/21 11:10: POC Glucose 176 H 06/03/21 16:43: POC Glucose 157 H 06/03/21 21:00: POC Glucose 186 H 06/04/21 05:11: WBC 20.6 H*, RBC 4.59 L, Hgb 12.9 L, Hct 41.9 L, MCV 91.3, MCH 28.1, MCHC 30.8 L, RDW 15.3, Plt Count 379, MPV 9.1, Neut % (Auto) 91.1 H, Lymph % (Auto) 4.0 L, [place] % (Auto) 4.7, Eos % (Auto) 0.0 L, Baso % (Auto) 0.1, Neut # (Auto) 18.7 H, Lymph # (Auto) 0.8, [place] # (Auto) 1.0, Eos # (Auto) 0.0, Baso # (Auto) 0.0, Total Counted 100, Neutrophils % (Manual) 83 H, Band Neutrophils % 12.0 H, Lymphocytes % (Manual) 5 L, Platelet Estimate Normal, Hypochromasia 2+ 06/04/21 05:11: Sodium 135 L, Potassium 4.5, Chloride 105, Carbon Dioxide 24, Anion Gap 10.5, BUN 13, Creatinine 0.60 L, Estimated Creat Clear 84, Estimated GFR 132, Est GFR ( Amer) 160, Glucose 144 H, Calcium 8.4 06/04/21 05:53: POC Glucose 143 H I & O for Last 24 hours: Intake & Output 06/01/21 06/02/21 06/03/21 06/04/21 23:59 23:59 23:59 23:59 Intake Total 60 / 60 3439 / 3439 300 / 300 Output Total 800 / 800 1974 1300 / 2300 1700 / 1700 Balance -740 / -740 1464 / 1464 -1000 / -2000 -1700 / -1700 Weight 87.9 kg 88.8 kg 91 kg 90 kg Microbiology Reports for the Last 24 Hours: Microbiology 06/01/21 14:10 Pericardial Fluid - Pericardial Gram Stain - Final 06/01/21 14:10 Pericardial Fluid - Pericardial Body Fluid Culture - Preliminary 05/28/21 20:50 Blood Blood Culture - Preliminary Assessment and Plan (1) Cardiac tamponade Status: Acute Category: Medical Code(s): I31.4 - Cardiac tamponade (2) Brain metastases Status: Acute Category: Medical Code(s): C79.31 - Secondary malignant neoplasm of brain (3) Carotid stenosis, bilateral Status: Acute Category: Medical Code(s): I65.23 - Occlusion and stenosis of bilateral carotid arteries (4) Metastatic lung cancer (metastasis from lung to other site) Status: Acute Category: Medical Code(s): C34.90 - Malignant neoplasm of unspecified part of unspecified bronchus or lung (5) Pericardial effusion Status: Acute Category: Medical Code(s): I31.3 - Pericardial effusion (noninflammatory) (6) Carotid artery stenosis Status: Chronic Qualifiers: Laterality: unspecified laterality Qualified Code(s): I65.29 - Occlusion and stenosis of unspecified carotid artery Category: Medical Code(s): I65.29 - Occlusion and stenosis of unspecified carotid artery (7) Chronic obstruct airways disease Status: Chronic Qualifiers: COPD type: chronic bronchitis Chronic bronchitis type: mixed simple and mucopurulent Qualified Code(s): J41.8 - Mixed simple and mucopurulent chronic bronchitis Category: Medical Code(s): J44.9 - Chronic obstructive pulmonary disease, unspecified (8) Coronary arteriosclerosis Status: Chronic Category: Medical Code(s): I25.10 - Atherosclerotic heart disease of [place] coronary artery without angina pectoris (9) Diabetes type 2, controlled Status: Chronic Qualifiers: Diabetes mellitus watermaster insulin use: without skilled nursing use Diabetes mellitus complication status: with circulatory complication Diabetes mellitus complication detail: with other circulatory complications Qualified Code(s): E11.59 - Type 2 diabetes mellitus with other circulatory complications Category: Medical Code(s): E11.9 - Type 2 diabetes mellitus without complications (10) History of right below knee amputation Status: Chronic Category: Surgical Code(s): Z89.511 - Acquired absence of right leg below knee (11) Hyperlipidemia Status: Chr
[2021-06-04 11:24] LABS: POC Glucose,Bedside 130 (70-110)
--- NOTE | 2021-06-04 11:48 | PC.NURSE ---
pt is extremely restless. gets frustrated due to not being able to communicate. He seems to understand what staff is saying to him and he responds but speech is slurred and he is incoherent. he has increased work of breathing and expiratory wheezes noted
--- NOTE | 2021-06-04 12:04 | PC.NURSE ---
pt ate all of applesauce @ lunch but refused the rest. Continues to attempt to get out of the bed and is moaning and yelling but staff is unable to understand him. Paged regarding pt increased work of breathing and restlessness.
--- NOTE | 2021-06-04 12:25 | XR_ITS ---
PROCEDURE INFORMATION: Exam: XR Chest Exam date and time: 06/04/2021 12:25 PM Age: 71 years old Clinical indication: Dyspnea; Additional info: SOA TECHNIQUE: Imaging protocol: XR of the chest. Views: 1 view. COMPARISON: CR XR CHEST PORTABLE 06/04/2021 6:01 AM FINDINGS: Lungs: Patchy bilateral opacities may represent multifocal pneumonia including COVID-19. Pleural spaces: Unremarkable. No pleural effusion. No pneumothorax. Heart/Mediastinum: Unremarkable. No cardiomegaly. Bones/joints: Unremarkable. IMPRESSION: Patchy bilateral opacities may represent multifocal pneumonia including COVID-19.
--- NOTE | 2021-06-04 12:37 | HMH.ACPN2 ---
Internal Medicine - PN: Subj *Date: 06/04/21 *Time: 12:37 Interval history: He is episodically agitated. Some results with Lorazepam. Receiving bid Risperdaal 0.25mg. Sats in the 90's on 2 liters. Deep cough. Decreased BS on right. Trace leg edema. Labs good. Exam Vital signs and Labs for Last 24 Hours: Temp Pulse Resp BP Pulse Ox 97.3 F L 104 H 18 154/81 H 94 L 06/04/21 08:00 06/04/21 12:00 06/04/21 12:00 06/04/21 12:00 06/04/21 12:00 Laboratory Results - last 24 hr 06/01/21 14:10: Fluid Glucose 72, Fluid Total Protein 4.4, Fluid Albumin 2.6, Fluid LDH 435 06/03/21 11:10: POC Glucose 176 H 06/03/21 16:43: POC Glucose 157 H 06/03/21 21:00: POC Glucose 186 H 06/04/21 05:11: WBC 20.6 H*, RBC 4.59 L, Hgb 12.9 L, Hct 41.9 L, MCV 91.3, MCH 28.1, MCHC 30.8 L, RDW 15.3, Plt Count 379, MPV 9.1, Neut % (Auto) 91.1 H, Lymph % (Auto) 4.0 L, Davis % (Auto) 4.7, Eos % (Auto) 0.0 L, Baso % (Auto) 0.1, Neut # (Auto) 18.7 H, Lymph # (Auto) 0.8, Davis # (Auto) 1.0, Eos # (Auto) 0.0, Baso # (Auto) 0.0, Total Counted 100, Neutrophils % (Manual) 83 H, Band Neutrophils % 12.0 H, Lymphocytes % (Manual) 5 L, Platelet Estimate Normal, Hypochromasia 2+ 06/04/21 05:11: Sodium 135 L, Potassium 4.5, Chloride 105, Carbon Dioxide 24, Anion Gap 10.5, BUN 13, Creatinine 0.60 L, Estimated Creat Clear 84, Estimated GFR 132, Est GFR ( Amer) 160, Glucose 144 H, Calcium 8.4 06/04/21 05:53: POC Glucose 143 H 06/04/21 11:17: POC Glucose 130 H I & O for Last 24 hours: Intake & Output 06/02/21 06/03/21 06/04/21 06/05/21 11:59 11:59 11:59 11:59 Intake Total 680 / 680 2879 / 2879 240 / 240 Output Total 2200 / 2200 1175 / 1175 2400 / 2400 Balance -1520 / -1520 1704 / 1704 -2160 / -2160 Weight 195 lb 12.328 oz 200 lb 9.93 oz 198 lb 6.656 oz Microbiology Reports for the Last 24 Hours: Microbiology 06/01/21 14:10 Pericardial Fluid - Pericardial Gram Stain - Final 06/01/21 14:10 Pericardial Fluid - Pericardial Body Fluid Culture - Preliminary 05/28/21 20:50 Blood Blood Culture - Preliminary - Constitutional no acute distress, agitated - *Routine HEENT Exam Head: Present: normocephalic Eye: Present: EOMI, PERRL ENT: Present: mucous membranes moist - *Routine Neck Exam Present: supple. Absent: JVD, lymphadenopathy - *Routine Respiratory Exam Present: decreased breath sounds (on right) - *Routine Abdominal Exam Present: soft, normoactive bowel sounds. Absent: tenderness, distended - *Routine Extremities Exam Present: edema (trace). Absent: cyanosis, clubbing - *Routine Skin Exam Present: intact, warm. Absent: rash - *Routine Neurological Exam Present: alert, oriented X3. Absent: normal speech Assessment and Plan (1) Cardiac tamponade Status: Acute Category: Medical Code(s): I31.4 - Cardiac tamponade (2) Brain metastases Status: Acute Category: Medical Code(s): C79.31 - Secondary malignant neoplasm of brain (3) Carotid stenosis, bilateral Status: Acute Category: Medical Code(s): I65.23 - Occlusion and stenosis of bilateral carotid arteries (4) Metastatic lung cancer (metastasis from lung to other site) Status: Acute Category: Medical Code(s): C34.90 - Malignant neoplasm of unspecified part of unspecified bronchus or lung (5) Pericardial effusion Status: Acute Category: Medical Code(s): I31.3 - Pericardial effusion (noninflammatory) (6) Carotid artery stenosis Status: Chronic Qualifiers: Laterality: unspecified laterality Qualified Code(s): I65.29 - Occlusion and stenosis of unspecified carotid artery Category: Medical Code(s): I65.29 - Occlusion and stenosis of unspecified carotid artery (7) Chronic obstruct airways disease Status: Chronic Qualifiers: COPD type: chronic bronchitis Chronic bronchitis type: mixed simple and mucopurulent Qualified Code(s): J41.8 - Mixed simple and mucopurulent chronic bronchitis Category: Medical
--- NOTE | 2021-06-04 13:47 | PC.NURSE ---
paged to notify of CXR results
--- NOTE | 2021-06-04 14:00 | PC.NURSE ---
spoke with MD regarding results of CXR .Will await orders
[2021-06-04 16:17] LABS: POC Glucose,Bedside 141 (70-110)
[2021-06-04 22:52] LABS: POC Glucose,Bedside 173 (70-110)
[2021-06-05] VITALS (13 sets, daily range): BP systolic 133–167; BP diastolic 74–90; PULSE 70–93; RESP 16–18; TEMP 36.3–36.9; O2SAT 94–98; BMI 27.1
--- NOTE | 2021-06-05 00:38 | PC.NURSE ---
Spoke with transfer center called for update, no beds at this time.
--- NOTE | 2021-06-05 06:00 | XR_ITS ---
PROCEDURE INFORMATION: Exam: XR Chest Exam date and time: 06/05/2021 6:00 AM Age: 71 years old Clinical indication: Other: Cardiac tampanade, lung cancer; Additional info: C cardiac tamponade TECHNIQUE: Imaging protocol: XR of the chest. Views: 1 view. COMPARISON: CR XR CHEST PORTABLE 06/04/2021 12:42 PM FINDINGS: Tubes, catheters and devices: Overlying monitoring leads. Lungs: Right mid and lower lung field airspace opacities with volume loss. Opacities are perhaps progressive versus the prior examination. Fibrotic changes. Scattered left lower lung field granulomata. Pleural spaces: Unremarkable. No pleural effusion. No pneumothorax. Heart/Mediastinum: Cardiac silhouette stable. Bones/joints: Unremarkable. IMPRESSION: Right-sided airspace opacities concerning for pneumonia.
[2021-06-05 06:05] LABS: POC Glucose,Bedside 151 (70-110)
[2021-06-05 06:42] LABS: Basophils % 0.2 % (0.1-2.0); Eosinophils % 0.1 % (0.1-12.0); Hematocrit 41.6 % (42.0-52.0); Hemoglobin 13.1 g/dL (14.1-18.0); Lymphocytes # 0.7 K/mm3 (0.7-4.5); Mean Corpuscular HGB Conc 31.5 g/dL (31.8-35.4); Mean Corpuscular Hemoglobin 28.4 pg (27.0-31.2); Mean Corpuscular Volume 90.3 fl (80-94); Mean Platelet Volume 8.5 fl (7.4-10.4); Monocytes # 0.6 K/mm3 (0.1-1.0); Monocytes % 3.6 % (1.7-9.3); Neutrophils # 15.6 K/mm3 (1.8-7.8); Neutrophils % 92.1 % (37.0-80.0); Platelet Count 335 K/mm3 (142-424); Red Blood Count 4.61 M/mm3 (4.60-6.20); Red Cell Distribution Width 15.5 % (11.5-17.5); White Blood Count 16.9 K/mm3 (4.8-10.8)
[2021-06-05 06:50] LABS: MANUAL DIFFERENTIAL MANUAL DIFFERENTIAL (MANUAL DIFF)
[2021-06-05 06:56] LABS: Anion Gap 8.9 mEq/L (5-15); Blood Urea Nitrogen 14 mg/dl (9-20); Calcium 8.5 mg/dl (8.4-10.2); Carbon Dioxide 26 mmol/L (22.0-30.0); Chloride 104 mmol/L (98-107); Creatinine Clearance Estimated 82 mL/min (50-200); Estimated Glomerular Filt Rate 111 ml/min (>60); GFR (African American) 134 ML/MIN (>60); Glucose 153 mg/dl (74-100); Potassium 4.9 mmoL/L (3.5-5.1); Sodium 134 mmol/L (136-145)
[2021-06-05 06:59] LABS: Lymphocytes % 6 % (10-50); Monocytes % 2 % (2-9); Neutrophils % 85 % (42-76); Platelet Estimate Normal; Total Cells Counted 100
[2021-06-05 07:00] LABS: Hypochromasia 1+
--- NOTE | 2021-06-05 13:01 | HMH.ACPN2 ---
Internal Medicine - PN: Subj *Date: 06/05/21 *Time: 13:01 Interval history: He is improving. He is [place]. He is achieving 95 to 96% saturation on room air. He has oral candidiasis. Exam Vital signs and Labs for Last 24 Hours: Temp Pulse Resp BP Pulse Ox 98.1 F 77 18 147/90 H 98 06/05/21 11:40 06/05/21 11:40 06/05/21 11:40 06/05/21 11:40 06/05/21 11:40 Laboratory Results - last 24 hr 06/04/21 16:10: POC Glucose 141 H 06/04/21 21:30: POC Glucose 173 H 06/05/21 05:49: POC Glucose 151 H 06/05/21 06:15: WBC 16.9 H, RBC 4.61, Hgb 13.1 L, Hct 41.6 L, MCV 90.3, MCH 28.4, MCHC 31.5 L, RDW 15.5, Plt Count 335, MPV 8.5, Neut % (Auto) 92.1 H, Lymph % (Auto) 4.0 L, Davis % (Auto) 3.6, Eos % (Auto) 0.1, Baso % (Auto) 0.2, Neut # (Auto) 15.6 H, Lymph # (Auto) 0.7, Davis # (Auto) 0.6, Eos # (Auto) 0.0, Baso # (Auto) 0.0, Total Counted 100, Neutrophils % (Manual) 85 H, Band Neutrophils % 7.0, Lymphocytes % (Manual) 6 L, Monocytes % (Manual) 2, Platelet Estimate Normal, Hypochromasia 1+ 06/05/21 06:15: Sodium 134 L, Potassium 4.9, Chloride 104, Carbon Dioxide 26, Anion Gap 8.9, BUN 14, Creatinine 0.70, Estimated Creat Clear 82, Estimated GFR 111, Est GFR ( Amer) 134, Glucose 153 H, Calcium 8.5 I & O for Last 24 hours: Intake & Output 06/03/21 06/04/21 06/05/21 06/06/21 11:59 11:59 11:59 11:59 Intake Total 2879 / 2879 240 / 240 1175 / 1175 120 / 120 Output Total 1175 / 1175 2400 / 2400 3410 / 3410 Balance 1704 / 1704 -2160 / -2160 -2235 / -2235 120 / 120 Weight 200 lb 9.93 oz 198 lb 6.656 oz 194 lb 3.636 oz Microbiology Reports for the Last 24 Hours: Microbiology 05/28/21 20:50 Blood Blood Culture - Preliminary - Constitutional no acute distress - *Routine HEENT Exam Head: Present: normocephalic Eye: Present: EOMI, PERRL ENT: Present: mucous membranes moist - *Routine Neck Exam Present: supple. Absent: JVD, lymphadenopathy - *Routine Respiratory Exam Present: other (He is moving air bilaterally including at the right base.) - *Routine Cardiovascular Exam Present: RRR - *Routine Abdominal Exam Present: soft, normoactive bowel sounds. Absent: tenderness - *Routine Extremities Exam Present: edema (2+) - *Routine Skin Exam Present: warm. Absent: rash - *Routine Neurological Exam Present: alert, oriented X3 (When asked how he is doing he replies Been rough. ) - Routine Psychiatric Exam Absent: normal affect (He is much calmer and seems more responsive.) Assessment and Plan (1) Cardiac tamponade Status: Acute Category: Medical Code(s): I31.4 - Cardiac tamponade (2) Brain metastases Status: Acute Category: Medical Code(s): C79.31 - Secondary malignant neoplasm of brain (3) Carotid stenosis, bilateral Status: Acute Category: Medical Code(s): I65.23 - Occlusion and stenosis of bilateral carotid arteries (4) Metastatic lung cancer (metastasis from lung to other site) Status: Acute Category: Medical Code(s): C34.90 - Malignant neoplasm of unspecified part of unspecified bronchus or lung (5) Pericardial effusion Status: Acute Category: Medical Code(s): I31.3 - Pericardial effusion (noninflammatory) (6) Carotid artery stenosis Status: Chronic Qualifiers: Laterality: unspecified laterality Qualified Code(s): I65.29 - Occlusion and stenosis of unspecified carotid artery Category: Medical Code(s): I65.29 - Occlusion and stenosis of unspecified carotid artery (7) Chronic obstruct airways disease Status: Chronic Qualifiers: COPD type: chronic bronchitis Chronic bronchitis type: mixed simple and mucopurulent Qualified Code(s): J41.8 - Mixed simple and mucopurulent chronic bronchitis Category: Medical Code(s): J44.9 - Chronic obstructive pulmonary disease, unspecified (8) Coronary arteriosclerosis Status: Chronic Category: Medical Code(s): I25.10 - Atherosclerotic heart disease of [place] coronary artery with
[2021-06-05 13:13] LABS: POC Glucose,Bedside 124 (70-110)
[2021-06-05 13:41] LABS: Vancomycin,Trough 19.6 ug/mL (5.0-10.0)
--- NOTE | 2021-06-05 14:13 | HMH.PHACONS ---
- Pharmacy Consult Date: 06/05/21 Time: 14:13 Referring provider: DR. MCKEON Reason for Consult:: VANCOMYCIN LEVEL AND DOSE CHANGE Allergies and ADEs:: Allergies Allergy/AdvReac Type Severity Reaction Status Date / Time No Known Allergies Allergy Verified 05/18/21 08:41 Home Medications:: Home Medications Medication Instructions Recorded Confirmed Type acetaminophen 500 mg tablet 500 mg PO Q6H PRN #90 tab 05/26/18 05/28/21 Rx Sennosides/Docusate Sodium 1 tab PO QHS 09/12/18 05/28/21 History [Sennosides-Docusate Sodium Tab] bisacodyl 10 mg rectal suppository 10 mg [place] DAILY PRN 11/27/19 05/28/21 History albuterol sulfate 90 mcg/actuation 2 puff INHALATION Q4-6H PRN #8.5 g 11/30/20 05/28/21 Rx aerosol inhaler linagliptin 5 mg tablet 5 mg PO DAILY #90 tab 11/30/20 05/28/21 Rx ipratropium 0.5 mg-albuterol 3 mg 3 ml INHALATION Q4-6H PRN #180 ml 05/18/21 05/28/21 Rx (2.5 mg base)/3 mL nebulization soln Aspirin [Low Dose Aspirin EC] 81 mg PO DAILY 05/28/21 05/28/21 History Clopidogrel Bisulfate [Plavix] 75 mg PO DAILY 05/28/21 05/28/21 History Docusate Sodium 100 mg PO DAILY PRN 05/28/21 05/28/21 History Fluoxetine HCl 60 mg PO DAILY 05/28/21 05/28/21 History Fluticasone/Umeclidin/Vilanter 1 inh INHALATION DAILY 05/28/21 05/28/21 History [Trelegy Ellipta] Metformin HCl [Metformin 1000mg 1,000 mg PO BID 05/28/21 05/28/21 History Tablets] Pantoprazole Sodium 40 mg PO HS 05/28/21 05/28/21 History Simvastatin 40 mg PO HS 05/28/21 05/28/21 History Sucralfate [Sucralfate 1gm 1 g PO BID 05/28/21 05/28/21 History Tab] Trazodone HCl 50 mg PO HS 05/28/21 05/28/21 History glipiZIDE [Glucotrol 5mg tablet] 5 mg PO DAILY 05/28/21 05/28/21 History risperiDONE [Risperidone] 1 mg PO HS 05/28/21 05/28/21 History triazolam 0.25 mg tablet 0.25 mg PO ONCE #1 tab 06/01/21 Rx Height: 1.8 m Weight: 88.1 kg Laboratory Results:: Laboratory Results - last 24 hr 06/04/21 16:10: POC Glucose 141 H 06/04/21 21:30: POC Glucose 173 H 06/05/21 05:49: POC Glucose 151 H 06/05/21 06:15: WBC 16.9 H, RBC 4.61, Hgb 13.1 L, Hct 41.6 L, MCV 90.3, MCH 28.4, MCHC 31.5 L, RDW 15.5, Plt Count 335, MPV 8.5, Neut % (Auto) 92.1 H, Lymph % (Auto) 4.0 L, [place] % (Auto) 3.6, Eos % (Auto) 0.1, Baso % (Auto) 0.2, Neut # (Auto) 15.6 H, Lymph # (Auto) 0.7, [place] # (Auto) 0.6, Eos # (Auto) 0.0, Baso # (Auto) 0.0, Total Counted 100, Neutrophils % (Manual) 85 H, Band Neutrophils % 7.0, Lymphocytes % (Manual) 6 L, Monocytes % (Manual) 2, Platelet Estimate Normal, Hypochromasia 1+ 06/05/21 06:15: Sodium 134 L, Potassium 4.9, Chloride 104, Carbon Dioxide 26, Anion Gap 8.9, BUN 14, Creatinine 0.70, Estimated Creat Clear 82, Estimated GFR 111, Est GFR ( Amer) 134, Glucose 153 H, Calcium 8.5 06/05/21 11:11: POC Glucose 124 H 06/05/21 12:27: Vancomycin Trough 19.6 H Medical History: Reports:: Anxiety, Cancer (lung), Congestive Heart Failure, Chronic Obstructive Pulmonary Disease (COPD), Coronary Artery Disease, Depression, Diabetes Mellitus Type 2, Hyperlipidemia, Hypertension, Lung Disease Denies:: Diabetes Mellitus Type 1, Internal Pacemaker, MRSA, Seizures Assessment and Plan (1) Cardiac tamponade Status: Acute Category: Medical Code(s): I31.4 - Cardiac tamponade (2) Brain metastases Status: Acute Category: Medical Code(s): C79.31 - Secondary malignant neoplasm of brain (3) Carotid stenosis, bilateral Status: Acute Category: Medical Code(s): I65.23 - Occlusion and stenosis of bilateral carotid arteries (4) Metastatic lung cancer (metastasis from lung to other site) Status: Acute Category: Medical Code(s): C34.90 - Malignant neoplasm of unspecified part of unspecified bronchus or lung (5) Pericardial effusion Status: Acute Category: Medical Code(s): I31.3 - Pericardial effusion (noninflammatory) (6) Carotid artery stenosis Status: Chronic Qualifiers: Laterality: unspecified laterality Qualified Code
[2021-06-05 18:42] LABS: POC Glucose,Bedside 134 (70-110)
[2021-06-05 22:44] LABS: POC Glucose,Bedside 199 (70-110)
[2021-06-06] VITALS (9 sets, daily range): BP systolic 128–168; BP diastolic 67–83; PULSE 70–97; RESP 16–19; TEMP 36.4–36.8; O2SAT 93–97; BMI 26.2
--- NOTE | 2021-06-06 05:50 | PC.NURSE ---
pt pulled iv out to left arm, restarted x3 attempts to left arm, pt tolerated well.
[2021-06-06 06:40] LABS: POC Glucose,Bedside 155 (70-110)
[2021-06-06 07:44] LABS: Basophils # 0.1 K/mm3 (0-0.2); Basophils % 0.3 % (0.1-2.0); Eosinophils # 0.1 K/mm3 (0.0-0.4); Eosinophils % 0.6 % (0.1-12.0); Hematocrit 44.2 % (42.0-52.0); Hemoglobin 14.1 g/dL (14.1-18.0); Lymphocytes % 4.5 % (10-50); Mean Corpuscular HGB Conc 31.8 g/dL (31.8-35.4); Mean Corpuscular Hemoglobin 28.4 pg (27.0-31.2); Mean Corpuscular Volume 89.1 fl (80-94); Mean Platelet Volume 8.6 fl (7.4-10.4); Monocytes # 0.7 K/mm3 (0.1-1.0); Monocytes % 3.3 % (1.7-9.3); Neutrophils % 91.3 % (37.0-80.0); Platelet Count 349 K/mm3 (142-424); Red Blood Count 4.96 M/mm3 (4.60-6.20); Red Cell Distribution Width 15.4 % (11.5-17.5); White Blood Count 21.9 K/mm3 (4.8-10.8)
[2021-06-06 07:47] LABS: MANUAL DIFFERENTIAL MANUAL DIFFERENTIAL (MANUAL DIFF)
--- NOTE | 2021-06-06 08:00 | CA_ITS ---
APPROVED REPORT EXAM: Comprehensive 2D, Doppler, and color-flow Echocardiogram Hat Steamer: Cherelle Garcia CRT Ht: 5 ft 7 in Wt: 165lbs BSA: 1.86 BP: 147/90 mmHg Indications: tamponade last week, pericardiocentesis 06/01/21 with a drain left in until 06/03/21. Conclusion 1. Technically difficult study, limited echocardiogram was performed to evaluate pericardial effusion, patient is status post pericardiocentesis. 2. No significant pericardial effusion noted in this study. Electronically signed by : Adria Sher MD 06/06/2021 22:00:43
[2021-06-06 08:32] LABS: Lymphocytes % 7 % (10-50); Monocytes % 6 % (2-9); Neutrophils % 86 % (42-76); Platelet Estimate Normal; RBC Morphology Normal; Total Cells Counted 100
--- NOTE | 2021-06-06 08:36 | HMH.ACPN2 ---
<Bri Crowell - Last Filed: 06/06/21 08:46> Internal Medicine - PN: Subj *Date: 06/06/21 *Time: 08:46 Interval history: Patient indicates that he is doing okay. He denies shortness of breath. Per nursing notes patient pulled IV out and was restarted.Laboratory data this a.m. indicates a white blood cell count 21,900. Blood chemistries with a sodium of 135 and potassium of 4.5. Renal function is normal. Blood culture positive for Alloiocossus otitis. Repeat chest x-ray yesterday with results as follows: IMPRESSION: Right-sided airspace opacities concerning for pneumonia. Exam Vital signs and Labs for Last 24 Hours: Temp Pulse Resp BP Pulse Ox 98.3 F 82 16 140/67 94 L 06/06/21 08:00 06/06/21 08:00 06/06/21 08:00 06/06/21 08:00 06/06/21 08:00 Laboratory Results - last 24 hr 06/05/21 11:11: POC Glucose 124 H 06/05/21 12:27: Vancomycin Trough 19.6 H 06/05/21 16:41: POC Glucose 134 H 06/05/21 21:08: POC Glucose 199 H 06/06/21 06:14: POC Glucose 155 H 06/06/21 07:20: WBC 21.9 H* D, RBC 4.96, Hgb 14.1, Hct 44.2, MCV 89.1, MCH 28.4, MCHC 31.8, RDW 15.4, Plt Count 349, MPV 8.6, Neut % (Auto) 91.3 H, Lymph % (Auto) 4.5 L, [place] % (Auto) 3.3, Eos % (Auto) 0.6, Baso % (Auto) 0.3, Neut # (Auto) 20.0 H, Lymph # (Auto) 1.0, [place] # (Auto) 0.7, Eos # (Auto) 0.1, Baso # (Auto) 0.1, Total Counted 100, Neutrophils % (Manual) 86 H, Band Neutrophils % 1.0, Lymphocytes % (Manual) 7 L, Monocytes % (Manual) 6, Platelet Estimate Normal, RBC Morphology Normal 06/06/21 07:20: Sodium 135 L, Potassium 4.5, Chloride 104, Carbon Dioxide 24, Anion Gap 11.5, BUN 18 D, Creatinine 0.80, Estimated Creat Clear 79, Estimated GFR 95, Est GFR ( Amer) 115, Glucose 165 H, Calcium 8.6 I & O for Last 24 hours: Intake & Output 06/03/21 06/04/21 06/05/21 06/06/21 11:59 11:59 11:59 11:59 Intake Total 2879 / 2879 240 / 240 1175 / 1175 120 / 120 Output Total 1175 / 1175 2400 / 2400 3410 / 3410 900 / 900 Balance 1704 / 1704 -2160 / -2160 -2235 / -2235 -780 / -780 Weight 200 lb 9.93 oz 198 lb 6.656 oz 194 lb 3.636 oz 187 lb 9 oz Microbiology Reports for the Last 24 Hours: Microbiology 05/28/21 20:50 Blood Blood Culture - Preliminary Alloiocossus otitis - Constitutional no acute distress Comments: Patient does assist with exam. - *Routine Respiratory Exam Present: CTA bilaterally (Anteriorly and posteriorly) - *Routine Cardiovascular Exam Present: RRR - *Routine Abdominal Exam Present: soft, normoactive bowel sounds. Absent: tenderness - *Routine Extremities Exam Present: edema, ELTON stockings - *Routine Neurological Exam Present: alert (Tries to answer all questions.) Assessment and Plan (1) Cardiac tamponade Status: Acute Category: Medical Code(s): I31.4 - Cardiac tamponade (2) Brain metastases Status: Acute Category: Medical Code(s): C79.31 - Secondary malignant neoplasm of brain (3) Carotid stenosis, bilateral Status: Acute Category: Medical Code(s): I65.23 - Occlusion and stenosis of bilateral carotid arteries (4) Metastatic lung cancer (metastasis from lung to other site) Status: Acute Category: Medical Code(s): C34.90 - Malignant neoplasm of unspecified part of unspecified bronchus or lung (5) Pericardial effusion Status: Acute Category: Medical Code(s): I31.3 - Pericardial effusion (noninflammatory) (6) Carotid artery stenosis Status: Chronic Qualifiers: Laterality: unspecified laterality Qualified Code(s): I65.29 - Occlusion and stenosis of unspecified carotid artery Category: Medical Code(s): I65.29 - Occlusion and stenosis of unspecified carotid artery (7) Chronic obstruct airways disease Status: Chronic Qualifiers: COPD type: chronic bronchitis Chronic bronchitis type: mixed simple and mucopurulent Qualified Code(s): J41.8 - Mixed simple and mucopurulent chronic bronchitis Category: Medical C
[2021-06-06 08:41] LABS: Anion Gap 10.4 mEq/L (5-15); Blood Urea Nitrogen 18 mg/dl (9-20); Calcium 8.6 mg/dl (8.4-10.2); Carbon Dioxide 24 mmol/L (22.0-30.0); Chloride 105 mmol/L (98-107); Creatinine Clearance Estimated 79 mL/min (50-200); Estimated Glomerular Filt Rate 111 ml/min (>60); GFR (African American) 134 ML/MIN (>60); Glucose 163 mg/dl (74-100); Potassium 4.4 mmoL/L (3.5-5.1); Sodium 135 mmol/L (136-145)
[2021-06-06 09:12] LABS: Thyroid Stimulating Hormone 1.23 uIU/mL (0.465-4.68)
--- NOTE | 2021-06-06 09:29 | HMH.PULMPN ---
Internal Medicine - PN: Subj *Date: 06/06/21 *Time: 11:22 Interval history: No acute respiratory events overnight. Exam - Constitutional Constitutional:: Present: no acute distress, comfortable - HENMT Exam HENMT: Present: normocephalic, atraumatic - Eye Exam Eyes:: Present: normal appearance both eyes and related structures - Neck Exam Neck:: Present: normal visual inspection - Respiratory Exam Respiratory:: Present: no respiratory distress. Absent: wheezing - Cardiovascular Exam Cardiac:: Present: S1, S2 - GI Exam GI:: Present: soft - Skin Exam Skin: Present: warm, no rash - Neurological Exam Neurological: Present: awake, motor sensory deficit. Absent: alert, normal cognition, normal speech - Extremities Exam Extremities: Present: no cyanosis, no clubbing Assessment and Plan (1) Cardiac tamponade Status: Acute Category: Medical Code(s): I31.4 - Cardiac tamponade (2) Brain metastases Status: Acute Category: Medical Code(s): C79.31 - Secondary malignant neoplasm of brain (3) Carotid stenosis, bilateral Status: Acute Category: Medical Code(s): I65.23 - Occlusion and stenosis of bilateral carotid arteries (4) Metastatic lung cancer (metastasis from lung to other site) Status: Acute Category: Medical Code(s): C34.90 - Malignant neoplasm of unspecified part of unspecified bronchus or lung (5) Pericardial effusion Status: Acute Category: Medical Code(s): I31.3 - Pericardial effusion (noninflammatory) (6) Carotid artery stenosis Status: Chronic Qualifiers: Laterality: unspecified laterality Qualified Code(s): I65.29 - Occlusion and stenosis of unspecified carotid artery Category: Medical Code(s): I65.29 - Occlusion and stenosis of unspecified carotid artery (7) Chronic obstruct airways disease Status: Chronic Qualifiers: COPD type: chronic bronchitis Chronic bronchitis type: mixed simple and mucopurulent Qualified Code(s): J41.8 - Mixed simple and mucopurulent chronic bronchitis Category: Medical Code(s): J44.9 - Chronic obstructive pulmonary disease, unspecified (8) Coronary arteriosclerosis Status: Chronic Category: Medical Code(s): I25.10 - Atherosclerotic heart disease of [place] coronary artery without angina pectoris (9) Diabetes type 2, controlled Status: Chronic Qualifiers: Diabetes mellitus medical terminologist insulin use: without half-way use Diabetes mellitus complication status: with circulatory complication Diabetes mellitus complication detail: with other circulatory complications Qualified Code(s): E11.59 - Type 2 diabetes mellitus with other circulatory complications Category: Medical Code(s): E11.9 - Type 2 diabetes mellitus without complications (10) History of right below knee amputation Status: Chronic Category: Surgical Code(s): Z89.511 - Acquired absence of right leg below knee (11) Hyperlipidemia Status: Chronic Qualifiers: Hyperlipidemia type: mixed hyperlipidemia Qualified Code(s): E78.2 - Mixed hyperlipidemia Category: Medical Code(s): E78.5 - Hyperlipidemia, unspecified (12) Schizophrenia Status: Chronic Qualifiers: Schizophrenia type: unspecified Qualified Code(s): F20.9 - Schizophrenia, unspecified Category: Medical Code(s): F20.9 - Schizophrenia, unspecified (13) Tobacco dependence syndrome Status: Chronic Category: Medical Code(s): F17.200 - Nicotine dependence, unspecified, uncomplicated (14) Oral candidiasis Status: Acute Category: Medical Code(s): B37.0 - Candidal stomatitis - Assessment and plan all Dx Assessment and Plan for all problems:: #Pneumonia: 71-year-old greater than [id number] smoking , self reported history of lung cancer, presented as a stroke alert Patient MRI does show MCA that has been managed conservatively, Initial CT and CTA head scan on admission reported to have brain lesions consistent with met
--- NOTE | 2021-06-06 09:56 | SW/DCPLANNER ---
Addendum entered by [facility] 06/09/21 09:23: I have scheduled this patient with an appointment with Dr Martinez: 07/07/21 at 8:30AM. I am going to call and update patients POA (Liza) regarding discharge to [facility] and appointment with Dr Martinez. Addendum entered by [facility] 06/09/21 09:20: I have updated Kristen [facility]/ [facility] that EMS is here to transport this AM. Addendum entered by [facility] 06/09/21 07:12: I spoke w/ Georgina de la vega/ Kris: goal is to transport this patient this AM once they finish ED transports and pending weather. I will keep in contact with Georgina this AM. I have also updated Kristen [facility]/ [facility]. Addendum entered by [facility] 06/08/21 16:36: Kristen [facility]/ [facility] has called me stating that it is now too late for this patient to admit to [facility] and has requested to wait till AM for transport. I did explain to Kristen that patient is completely ready for discharge and ambulance is prepared to transport this evening: Kristen again denied admission for this evening. I spoke with Jose De Jesus/[facility] and they have stated they prefer discharge this evening but if have to wait till AM they would need to transport at 6AM tomorrow due to weather conditions. Kristen has approved transportation for 6AM tomorrow. I have informed [facility], nurse (Sharon) and ambulance service of discharge tomorrow morning at 6AM. Kristen has stated the only thing she needs prior to discharge is an addendum added to discharge summary stating patient will discharge to [facility] for rehabilitation on 06/09/21 :I have informed Dr Medina. I have also asked Sharon to fax to [facility] once addendum is added. Patient does NOT require a COVID swab. Sharon has stated that she will inform cage shift manager to call [facility] for report early in AM. I will call and update patients POA (Liza) of discharge plan in AM. Addendum entered by [facility] 06/08/21 13:40: Per Kristen this patient has been accepted to [facility] Stroke Unit today. Accepting MD: Dr Rodriguez phone: [phone] fax: [phone] Patient will NOT require a COVID swab prior to discharge. I have also called and updated patients POA Liza: she agrees with this plan. Addendum entered by [facility] 06/08/21 09:12: Kristen [facility]/ [facility] is currently reviewing patient information and will be speaking with patients POA this AM. I have updated Dr Medina regarding situation. Addendum entered by [facility] 06/07/21 11:36: Neetu de la vega/ [facility] has stated they are able to accept this patient at time of discharge. Addendum entered by [facility] 06/07/21 09:48: Patient information has also been faxed to [facility] and updated information to Kristen with [facility]. I have updated patients POA this AM and informed her that Dr Colunga would like to speak with family in patients room regarding POC. Liza has stated that she would speak with other family members then update me with a time. Addendum entered by [facility] 06/06/21 14:16: Information has also been faxed to: [facility] and [facility]. Addendum entered by [facility] 06/06/21 13:03: At this time the following facilities can NOT accept this patient: [facility], [facility] and [facility]. Patient information has since be faxed to [facility], [facility], [facility], [facility] and [facility]. I will follow up with facilities and patients POA/Liza. Addendum entered by [facility] 06/06/21 11:32: Gala de la vega/ [facility] stated they could not meet this patients needs at this time. Patient information has also been faxed to [facility]. Addendum entered by [facility] 06/06/21 10:44: Liza has called me back stating that patients brother has an appointment with Dr Medina at 11AM and had additional questions prior to placement. However Liza has confirmed that patient information can be faxed to [facility] and [facility]
--- NOTE | 2021-06-06 11:23 | HMH.PNCARD ---
Subjective Date: 06/06/21 Time: 08:00 Principal diagnosis: cardiac tamponade Interval history: 70-year-old male who was admitted to the hospital for stroke versus brain mets on 05/28/2021. Cardiology had been consulted due to patient having cardiac tamponade on echocardiogram and requiring pericardial drain in place following a pericardiocentesis. Drain has been removed on June 02, 2019. Dressing is dry and intact. Patient continues to be confused and somewhat combative. Patient had a CT of the brain that showed questionable brain metastasis and he had an MRI of the brain that showed an acute stroke with no mention of brain metastasis. CT of chest had been performed which does not mention anything about lung cancer/mass/nodules. Vital signs are stable. He denies any chest pain or pressure. He is still having a very hard time communicating and he is not really answering most of my questions or following my commands. He does not appear to be short of breath today. Exam Vital signs and Labs for Last 24 Hours: Temp Pulse Resp BP Pulse Ox 98.3 F 92 H 16 140/67 96 06/06/21 08:00 06/06/21 11:00 06/06/21 08:00 06/06/21 08:00 06/06/21 11:00 Laboratory Results - last 24 hr 06/05/21 11:11: POC Glucose 124 H 06/05/21 12:27: Vancomycin Trough 19.6 H 06/05/21 16:41: POC Glucose 134 H 06/05/21 21:08: POC Glucose 199 H 06/06/21 06:14: POC Glucose 155 H 06/06/21 07:20: WBC 21.9 H* D, RBC 4.96, Hgb 14.1, Hct 44.2, MCV 89.1, MCH 28.4, MCHC 31.8, RDW 15.4, Plt Count 349, MPV 8.6, Neut % (Auto) 91.3 H, Lymph % (Auto) 4.5 L, [place] % (Auto) 3.3, Eos % (Auto) 0.6, Baso % (Auto) 0.3, Neut # (Auto) 20.0 H, Lymph # (Auto) 1.0, [place] # (Auto) 0.7, Eos # (Auto) 0.1, Baso # (Auto) 0.1, Total Counted 100, Neutrophils % (Manual) 86 H, Band Neutrophils % 1.0, Lymphocytes % (Manual) 7 L, Monocytes % (Manual) 6, Platelet Estimate Normal, RBC Morphology Normal 06/06/21 07:20: Sodium Cancelled, Potassium Cancelled, Chloride Cancelled, Carbon Dioxide Cancelled, Anion Gap Cancelled, BUN Cancelled, Creatinine Cancelled, Estimated Creat Clear Cancelled, Estimated GFR Cancelled, Est GFR ( Amer) Cancelled, Glucose Cancelled, Calcium Cancelled 06/06/21 07:20: Sodium 135 L, Potassium 4.4, Chloride 105, Carbon Dioxide 24, Anion Gap 10.4, BUN 18 D, Creatinine 0.70, Estimated Creat Clear 79, Estimated GFR 111, Est GFR ( Amer) 134, Glucose 163 H, Calcium 8.6, TSH 1.23 I & O for Last 24 hours: Intake & Output 06/03/21 06/04/21 06/05/21 06/06/21 23:59 23:59 23:59 23:59 Intake Total 300 / 300 120 / 120 1175 / 1175 Output Total 1300 / 2300 3410 / 3410 1700 / 2600 900 / 900 Balance -1000 / -2000 -3290 / -3290 -525 / -1425 -900 / -900 Weight 200 lb 9.93 oz 198 lb 6.656 oz 194 lb 3.636 oz 187 lb 9 oz Microbiology Reports for the Last 24 Hours: Microbiology 05/28/21 20:50 Blood Blood Culture - Preliminary Alloiocossus otitis - Constitutional chronically ill appearing, obtunded - *Routine HEENT Exam Head: Present: normocephalic ENT: Present: mucous membranes moist - *Routine Neck Exam Present: supple, full ROM, normal carotid upstroke. Absent: JVD, carotid bruit, lymphadenopathy - Routine Chest/Breast/Axilla Exam Chest wall: Present: tenderness. Absent: mass, pacemaker - *Routine Respiratory Exam Present: accessory muscle use, CTA bilaterally. Absent: wheezes - *Routine Cardiovascular Exam Present: RRR, Normal S1, Normal S2. Absent: murmur, bradycardia, tachycardia, irregular rhythm, irregularly irregular - *Routine Abdominal Exam Present: soft, normoactive bowel sounds. Absent: distended, firm - *Routine Extremities Exam Present: full ROM, pulses intact, normal capillary refill. Absent: edema - *Routine Skin Exam Present: intact, dry, warm, normal turgor. Absent: erythema - *Routine Neurological Exam Present: alert, altered mental status - Routine Psychiatric Exam Prese
[2021-06-06 16:39] LABS: POC Glucose,Bedside 147 (70-110)
--- NOTE | 2021-06-06 17:04 | PC.NURSE ---
1703-Shift reassessment: pt resting in bed at this time, denies pain or soa, f/c draining to beside-dk yellow/clear urine, ls cta, pt noted to be sinus rhythm with occasional pac's on telemetry, pt will not keep oxygen off-continously removing t/o shift-o2 sats stable, pt's left fa iv patent and infusing w/out difficulty, pt wilfredo meds crushed in applesauce, no acute skin breakdown noted, vss, pt stable, will continue to monitor
[2021-06-06 22:40] LABS: POC Glucose,Bedside 144 (70-110)
[2021-06-07] VITALS (9 sets, daily range): BP systolic 111–156; BP diastolic 56–76; PULSE 66–88; RESP 17–22; TEMP 36.4–37; O2SAT 90–97; BMI 26.1
[2021-06-07 02:50] LABS: POC Glucose,Bedside 132 (70-110)
[2021-06-07 06:26] LABS: POC Glucose,Bedside 137 (70-110)
[2021-06-07 06:46] LABS: MANUAL DIFFERENTIAL MANUAL DIFFERENTIAL (MANUAL DIFF)
[2021-06-07 06:51] LABS: Basophils % 0.2 % (0.1-2.0); Eosinophils # 0.3 K/mm3 (0.0-0.4); Eosinophils % 1.1 % (0.1-12.0); Hematocrit 45.3 % (42.0-52.0); Hemoglobin 14.3 g/dL (14.1-18.0); Lymphocytes # 1.2 K/mm3 (0.7-4.5); Lymphocytes % 5.6 % (10-50); Mean Corpuscular HGB Conc 31.6 g/dL (31.8-35.4); Mean Corpuscular Hemoglobin 28.2 pg (27.0-31.2); Mean Corpuscular Volume 89.4 fl (80-94); Mean Platelet Volume 8.4 fl (7.4-10.4); Monocytes # 0.9 K/mm3 (0.1-1.0); Neutrophils # 19.4 K/mm3 (1.8-7.8); Neutrophils % 89.2 % (37.0-80.0); Platelet Count 315 K/mm3 (142-424); Red Blood Count 5.06 M/mm3 (4.60-6.20); Red Cell Distribution Width 15.5 % (11.5-17.5); White Blood Count 21.8 K/mm3 (4.8-10.8)
[2021-06-07 07:05] LABS: Chloride 103 mmol/L (98-107); Potassium 4.4 mmoL/L (3.5-5.1); Sodium 133 mmol/L (136-145)
[2021-06-07 07:08] LABS: Anion Gap 9.4 mEq/L (5-15); Blood Urea Nitrogen 19 mg/dl (9-20); Carbon Dioxide 25 mmol/L (22.0-30.0); Creatinine Clearance Estimated 79 mL/min (50-200); Estimated Glomerular Filt Rate 111 ml/min (>60); GFR (African American) 134 ML/MIN (>60)
[2021-06-07 07:09] LABS: Calcium 8.3 mg/dl (8.4-10.2); Glucose 163 mg/dl (74-100)
[2021-06-07 08:37] LABS: Vancomycin,Trough 21.3 ug/mL (5.0-10.0)
--- NOTE | 2021-06-07 08:37 | HMH.ACPN2 ---
Internal Medicine - PN: Subj *Date: 06/07/21 *Time: 08:37 Interval history: Per nursing: Patient had a restless night. Continues to pull off telemetry. He did sit on the side of the bed yesterday Per patient: he denies chest pain and shortness of breath. He states he does not want breakfast. Review of nursing notes show that he eats poorly. Laboratory data this a.m.: White blood cell count remains elevated at 21,800. Blood chemistries with a sodium of 133 and potassium of 4.4. Renal function is normal. Exam Vital signs and Labs for Last 24 Hours: Temp Pulse Resp BP Pulse Ox 98.2 F 77 18 132/64 93 L 06/07/21 08:00 06/07/21 08:00 06/07/21 08:00 06/07/21 08:00 06/07/21 08:00 Laboratory Results - last 24 hr 06/06/21 07:20: Sodium Cancelled, Potassium Cancelled, Chloride Cancelled, Carbon Dioxide Cancelled, Anion Gap Cancelled, BUN Cancelled, Creatinine Cancelled, Estimated Creat Clear Cancelled, Estimated GFR Cancelled, Est GFR ( Amer) Cancelled, Glucose Cancelled, Calcium Cancelled 06/06/21 07:20: Sodium 135 L, Potassium 4.4, Chloride 105, Carbon Dioxide 24, Anion Gap 10.4, BUN 18 D, Creatinine 0.70, Estimated Creat Clear 79, Estimated GFR 111, Est GFR ( Amer) 134, Glucose 163 H, Calcium 8.6, TSH 1.23 06/06/21 11:18: POC Glucose 147 H 06/06/21 16:39: POC Glucose 132 H 06/06/21 22:16: POC Glucose 144 H 06/07/21 06:14: POC Glucose 137 H 06/07/21 06:38: WBC 21.8 H*, RBC 5.06, Hgb 14.3, Hct 45.3, MCV 89.4, MCH 28.2, MCHC 31.6 L, RDW 15.5, Plt Count 315, MPV 8.4, Neut % (Auto) 89.2 H, Lymph % (Auto) 5.6 L, [place] % (Auto) 4.0, Eos % (Auto) 1.1, Baso % (Auto) 0.2, Neut # (Auto) 19.4 H, Lymph # (Auto) 1.2, [place] # (Auto) 0.9, Eos # (Auto) 0.3, Baso # (Auto) 0.0 06/07/21 06:38: Sodium 133 L, Potassium 4.4, Chloride 103, Carbon Dioxide 25, Anion Gap 9.4, BUN 19, Creatinine 0.70, Estimated Creat Clear 79, Estimated GFR 111, Est GFR ( Amer) 134, Glucose 163 H, Calcium 8.3 L I & O for Last 24 hours: Intake & Output 06/04/21 06/05/21 06/06/21 06/07/21 11:59 11:59 11:59 11:59 Intake Total 240 / 240 1175 / 1175 120 / 120 60 / 60 Output Total 2400 / 2400 3410 / 3410 900 / 900 1750 / 1750 Balance -2160 / -2160 -2235 / -2235 -780 / -780 -1690 / -1690 Weight 198 lb 6.656 oz 194 lb 3.636 oz 187 lb 9 oz 186 lb 8.177 oz Microbiology Reports for the Last 24 Hours: Microbiology 05/28/21 20:50 Blood Blood Culture - Preliminary Alloiocossus otitis - Constitutional no acute distress Comments: Upon entering the room patient is sleeping on his right side. He does assist with exam after awakened. - *Routine HEENT Exam ENT: Present: oropharynx clear, TM's clear bilaterally - *Routine Respiratory Exam Present: CTA bilaterally (Decreased breath sounds on the left) - *Routine Cardiovascular Exam Present: RRR (Some premature beats noted. Patient would not stay on telemetry) - *Routine Abdominal Exam Present: soft, normoactive bowel sounds. Absent: tenderness - *Routine Extremities Exam Present: edema - *Routine Neurological Exam Present: alert, oriented X3 Assessment and Plan (1) Cardiac tamponade Status: Acute Category: Medical Code(s): I31.4 - Cardiac tamponade (2) Brain metastases Status: Acute Category: Medical Code(s): C79.31 - Secondary malignant neoplasm of brain (3) Carotid stenosis, bilateral Status: Acute Category: Medical Code(s): I65.23 - Occlusion and stenosis of bilateral carotid arteries (4) Metastatic lung cancer (metastasis from lung to other site) Status: Acute Category: Medical Code(s): C34.90 - Malignant neoplasm of unspecified part of unspecified bronchus or lung (5) Pericardial effusion Status: Acute Category: Medical Code(s): I31.3 - Pericardial effusion (noninflammatory) (6) Carotid artery stenosis Status: Chronic Qualifiers: Laterality: unspecified laterality Qualified Code(s): I65
--- NOTE | 2021-06-07 08:54 | PC.NURSE ---
speech therapy at bedside
--- NOTE | 2021-06-07 08:55 | HMH.PULMPN ---
Internal Medicine - PN: Subj *Date: 06/07/21 *Time: 10:56 Interval history: No acute respiratory events overnight. Patient continued to remain on room air. Exam - Constitutional Constitutional:: Present: no acute distress, comfortable - HENMT Exam HENMT: Present: normocephalic, atraumatic - Eye Exam Eyes:: Present: normal appearance both eyes and related structures - Neck Exam Neck:: Present: normal visual inspection - Respiratory Exam Respiratory:: Present: no respiratory distress. Absent: crackles, wheezing - Cardiovascular Exam Cardiac:: Present: S1, S2 - GI Exam GI:: Present: soft - Skin Exam Skin: Present: warm, no rash - Neurological Exam Neurological: Present: awake. Absent: alert, normal cognition, normal speech, motor sensory deficit - Extremities Exam Extremities: Present: no cyanosis, no clubbing Assessment and Plan (1) Cardiac tamponade Status: Acute Category: Medical Code(s): I31.4 - Cardiac tamponade (2) Brain metastases Status: Acute Category: Medical Code(s): C79.31 - Secondary malignant neoplasm of brain (3) Carotid stenosis, bilateral Status: Acute Category: Medical Code(s): I65.23 - Occlusion and stenosis of bilateral carotid arteries (4) Metastatic lung cancer (metastasis from lung to other site) Status: Acute Category: Medical Code(s): C34.90 - Malignant neoplasm of unspecified part of unspecified bronchus or lung (5) Pericardial effusion Status: Acute Category: Medical Code(s): I31.3 - Pericardial effusion (noninflammatory) (6) Carotid artery stenosis Status: Chronic Qualifiers: Laterality: unspecified laterality Qualified Code(s): I65.29 - Occlusion and stenosis of unspecified carotid artery Category: Medical Code(s): I65.29 - Occlusion and stenosis of unspecified carotid artery (7) Chronic obstruct airways disease Status: Chronic Qualifiers: COPD type: chronic bronchitis Chronic bronchitis type: mixed simple and mucopurulent Qualified Code(s): J41.8 - Mixed simple and mucopurulent chronic bronchitis Category: Medical Code(s): J44.9 - Chronic obstructive pulmonary disease, unspecified (8) Coronary arteriosclerosis Status: Chronic Category: Medical Code(s): I25.10 - Atherosclerotic heart disease of [place] coronary artery without angina pectoris (9) Diabetes type 2, controlled Status: Chronic Qualifiers: Diabetes mellitus emt b insulin use: without residential use Diabetes mellitus complication status: with circulatory complication Diabetes mellitus complication detail: with other circulatory complications Qualified Code(s): E11.59 - Type 2 diabetes mellitus with other circulatory complications Category: Medical Code(s): E11.9 - Type 2 diabetes mellitus without complications (10) History of right below knee amputation Status: Chronic Category: Surgical Code(s): Z89.511 - Acquired absence of right leg below knee (11) Hyperlipidemia Status: Chronic Qualifiers: Hyperlipidemia type: mixed hyperlipidemia Qualified Code(s): E78.2 - Mixed hyperlipidemia Category: Medical Code(s): E78.5 - Hyperlipidemia, unspecified (12) Schizophrenia Status: Chronic Qualifiers: Schizophrenia type: unspecified Qualified Code(s): F20.9 - Schizophrenia, unspecified Category: Medical Code(s): F20.9 - Schizophrenia, unspecified (13) Tobacco dependence syndrome Status: Chronic Category: Medical Code(s): F17.200 - Nicotine dependence, unspecified, uncomplicated (14) Oral candidiasis Status: Acute Category: Medical Code(s): B37.0 - Candidal stomatitis - Assessment and plan all Dx Assessment and Plan for all problems:: #Pneumonia: 71-year-old greater than [id number] smoking , self reported history of lung cancer, presented as a stroke alert Patient MRI does show MCA that has been managed conservatively, Initial CT and CTA head scan on [facility]
--- NOTE | 2021-06-07 09:06 | HMH.PNCARD ---
Subjective Date: 06/07/21 Time: 09:00 Principal diagnosis: cardiac tamponade Interval history: 70-year-old male who was admitted to the hospital for stroke versus brain mets on 05/28/2021. Cardiology had been consulted due to patient having cardiac tamponade on echocardiogram and requiring pericardial drain in place following a pericardiocentesis. Drain has been removed on June 02, 2019. Dressing is dry and intact. Patient continues to be somewhat confused. Patient had a CT of the brain that showed questionable brain metastasis and he had an MRI of the brain that showed an acute stroke with no mention of brain metastasis. CT of chest had been performed which does not mention anything about lung cancer/mass/nodules. Vital signs are stable. He denies any chest pain or pressure. Limited echocardiogram was performed yesterday which revealed no significant pericardial effusion noted. Case management is working on having patient to be transferred to [facility] for rehabilitation. Patient will need to follow-up with cardiology in 1 to 2 weeks following discharge. Limited Echo:Conclusion 1. Technically difficult study, limited echocardiogram was performed to evaluate pericardial effusion, patient is status post pericardiocentesis. 2. No significant pericardial effusion noted in this study. Exam Vital signs and Labs for Last 24 Hours: Temp Pulse Resp BP Pulse Ox 98.2 F 77 18 132/64 93 L 06/07/21 08:00 06/07/21 08:00 06/07/21 08:00 06/07/21 08:00 06/07/21 08:00 Laboratory Results - last 24 hr 06/06/21 07:20: Sodium Cancelled, Potassium Cancelled, Chloride Cancelled, Carbon Dioxide Cancelled, Anion Gap Cancelled, BUN Cancelled, Creatinine Cancelled, Estimated Creat Clear Cancelled, Estimated GFR Cancelled, Est GFR ( Amer) Cancelled, Glucose Cancelled, Calcium Cancelled 06/06/21 07:20: Potassium 4.4, BUN 18 D, Creatinine 0.70, Est GFR ( Amer) 134, Glucose 163 H, TSH 1.23 06/06/21 11:18: POC Glucose 147 H 06/06/21 16:39: POC Glucose 132 H 06/06/21 22:16: POC Glucose 144 H 06/07/21 06:14: POC Glucose 137 H 06/07/21 06:38: Vancomycin Trough 21.3 H 06/07/21 06:38: WBC 21.8 H*, RBC 5.06, Hgb 14.3, Hct 45.3, MCV 89.4, MCH 28.2, MCHC 31.6 L, RDW 15.5, Plt Count 315, MPV 8.4, Neut % (Auto) 89.2 H, Lymph % (Auto) 5.6 L, [place] % (Auto) 4.0, Eos % (Auto) 1.1, Baso % (Auto) 0.2, Neut # (Auto) 19.4 H, Lymph # (Auto) 1.2, [place] # (Auto) 0.9, Eos # (Auto) 0.3, Baso # (Auto) 0.0 06/07/21 06:38: Sodium 133 L, Potassium 4.4, Chloride 103, Carbon Dioxide 25, Anion Gap 9.4, BUN 19, Creatinine 0.70, Estimated Creat Clear 79, Estimated GFR 111, Est GFR ( Amer) 134, Glucose 163 H, Calcium 8.3 L I & O for Last 24 hours: Intake & Output 06/04/21 06/05/21 06/06/21 06/07/21 23:59 23:59 23:59 23:59 Intake Total 120 / 120 1175 / 1175 60 / 60 120 / 120 Output Total 3410 / 3410 1700 / 2600 2100 / 2650 550 / 550 Balance -3290 / -3290 -525 / -1425 -2040 / -2590 -430 / -430 Weight 198 lb 6.656 oz 194 lb 3.636 oz 187 lb 9 oz 186 lb 8.177 oz Microbiology Reports for the Last 24 Hours: Microbiology 05/28/21 20:50 Blood Blood Culture - Preliminary Alloiocossus otitis - Constitutional no acute distress, average body habitus, chronically ill appearing, obtunded - *Routine HEENT Exam Head: Present: normocephalic ENT: Present: mucous membranes moist - *Routine Neck Exam Present: supple, full ROM, normal carotid upstroke. Absent: JVD, carotid bruit, lymphadenopathy - *Routine Respiratory Exam Present: accessory muscle use, CTA bilaterally. Absent: wheezes, crackles - *Routine Cardiovascular Exam Present: RRR, Normal S1, Normal S2. Absent: bradycardia, tachycardia, irregular rhythm, irregularly irregular - *Routine Abdominal Exam Present: soft, normoactive bowel sounds. Absent: tenderness, distended, firm - *Routine Extremities Exam Present: full ROM, pulses int
--- NOTE | 2021-06-07 09:08 | HMH.PHACONS ---
- Pharmacy Consult Date: 06/07/21 Time: 09:08 Referring provider: DR. MCKEON Reason for Consult:: VANCOMYCIN LEVEL AND DOSE CHANGE Allergies and ADEs:: Allergies Allergy/AdvReac Type Severity Reaction Status Date / Time No Known Allergies Allergy Verified 05/18/21 08:41 Home Medications:: Home Medications Medication Instructions Recorded Confirmed Type acetaminophen 500 mg tablet 500 mg PO Q6H PRN #90 tab 05/26/18 05/28/21 Rx Sennosides/Docusate Sodium 1 tab PO HS 09/12/18 06/06/21 History [Sennosides-Docusate Sodium Tab] bisacodyl 10 mg rectal suppository 10 mg [place] DAILY PRN 11/27/19 05/28/21 History albuterol sulfate 90 mcg/actuation 2 puff INHALATION Q4-6H PRN #8.5 g 11/30/20 05/28/21 Rx aerosol inhaler linagliptin 5 mg tablet 5 mg PO DAILY #90 tab 11/30/20 05/28/21 Rx ipratropium 0.5 mg-albuterol 3 mg 3 ml INHALATION Q4-6H PRN #180 ml 05/18/21 05/28/21 Rx (2.5 mg base)/3 mL nebulization soln Aspirin [Low Dose Aspirin EC] 81 mg PO DAILY 05/28/21 05/28/21 History Clopidogrel Bisulfate [Plavix] 75 mg PO DAILY 05/28/21 05/28/21 History Docusate Sodium 100 mg PO DAILY PRN 05/28/21 05/28/21 History Fluoxetine HCl 60 mg PO DAILY 05/28/21 05/28/21 History Fluticasone/Umeclidin/Vilanter 1 puff IH DAILY 05/28/21 06/06/21 History [Trelegy Ellipta] Metformin HCl [Metformin 1000mg 1,000 mg PO BID 05/28/21 05/28/21 History Tablets] Pantoprazole Sodium 40 mg PO HS 05/28/21 05/28/21 History Simvastatin 40 mg PO HS 05/28/21 05/28/21 History Sucralfate [Sucralfate 1gm 1 g PO BID 05/28/21 05/28/21 History Tab] Trazodone HCl 50 mg PO HS 05/28/21 05/28/21 History glipiZIDE [Glucotrol 5mg tablet] 5 mg PO DAILY 05/28/21 05/28/21 History risperiDONE [Risperidone] 1 mg PO HS 05/28/21 05/28/21 History Height: 1.8 m Weight: 84.6 kg Laboratory Results:: Laboratory Results - last 24 hr 06/06/21 07:20: Sodium Cancelled, Potassium Cancelled, Chloride Cancelled, Carbon Dioxide Cancelled, Anion Gap Cancelled, BUN Cancelled, Creatinine Cancelled, Estimated Creat Clear Cancelled, Estimated GFR Cancelled, Est GFR ( Amer) Cancelled, Glucose Cancelled, Calcium Cancelled 06/06/21 07:20: Potassium 4.4, BUN 18 D, Creatinine 0.70, Est GFR ( Amer) 134, Glucose 163 H, TSH 1.23 06/06/21 11:18: POC Glucose 147 H 06/06/21 16:39: POC Glucose 132 H 06/06/21 22:16: POC Glucose 144 H 06/07/21 06:14: POC Glucose 137 H 06/07/21 06:38: Vancomycin Trough 21.3 H 06/07/21 06:38: WBC 21.8 H*, RBC 5.06, Hgb 14.3, Hct 45.3, MCV 89.4, MCH 28.2, MCHC 31.6 L, RDW 15.5, Plt Count 315, MPV 8.4, Neut % (Auto) 89.2 H, Lymph % (Auto) 5.6 L, [place] % (Auto) 4.0, Eos % (Auto) 1.1, Baso % (Auto) 0.2, Neut # (Auto) 19.4 H, Lymph # (Auto) 1.2, [place] # (Auto) 0.9, Eos # (Auto) 0.3, Baso # (Auto) 0.0 06/07/21 06:38: Sodium 133 L, Potassium 4.4, Chloride 103, Carbon Dioxide 25, Anion Gap 9.4, BUN 19, Creatinine 0.70, Estimated Creat Clear 79, Estimated GFR 111, Est GFR ( Amer) 134, Glucose 163 H, Calcium 8.3 L Medical History: Reports:: Anxiety, Cancer (lung), Congestive Heart Failure, Chronic Obstructive Pulmonary Disease (COPD), Coronary Artery Disease, Depression, Diabetes Mellitus Type 2, Hyperlipidemia, Hypertension, Lung Disease Denies:: Diabetes Mellitus Type 1, Internal Pacemaker, MRSA, Seizures Assessment and Plan (1) Cardiac tamponade Status: Acute Category: Medical Code(s): I31.4 - Cardiac tamponade (2) Brain metastases Status: Acute Category: Medical Code(s): C79.31 - Secondary malignant neoplasm of brain (3) Carotid stenosis, bilateral Status: Acute Category: Medical Code(s): I65.23 - Occlusion and stenosis of bilateral carotid arteries (4) Metastatic lung cancer (metastasis from lung to other site) Status: Acute Category: Medical Code(s): C34.90 - Malignant neoplasm of unspecified part of unspecified bronchus or lung (5) Pericardial effusion Status: Acute Category: Medical Code(s): I31.3
[2021-06-07 11:02] LABS: Lymphocytes % 7 % (10-50); Monocytes % 8 % (2-9); Neutrophils % 85 % (42-76); Platelet Estimate Normal; RBC Morphology Normal; Total Cells Counted 100
--- NOTE | 2021-06-07 11:13 | PC.NURSE ---
1113-Victor Hugo, physical therapy at bedside at this time. Family at bedside
--- NOTE | 2021-06-07 11:51 | PC.NURSE ---
Dr. Lilly notified of pt's family at bedside per AnnabelleWC
--- NOTE | 2021-06-07 12:00 | PC.NURSE ---
1130-Ward, physical therapy got pt up to side of bed and pt sat without difficult, pt periodically sitting up in bed, pt refusing to get out of bed and up to chair
--- NOTE | 2021-06-07 12:05 | PC.NURSE ---
1158-Dr. Lilly at pt's bedside, discussing plan of care with family
--- NOTE | 2021-06-07 13:02 | PC.NURSE ---
1245-pt got up to bsc with assist of staff, once finished using bsc pt got up to chair with assist x2, wilfredo well, will continue to monitor
--- NOTE | 2021-06-07 13:08 | PC.NURSE ---
1300-physical therapy at bedside at this time
[2021-06-07 16:38] LABS: POC Glucose,Bedside 136 (70-110)
--- NOTE | 2021-06-07 18:00 | PC.NURSE ---
1800-pt sitting up in bed at this time, o2 @ 4l/nc in place-sats stable, pt reports she is getting tire and will put her bi pap on if she wants to take a nap, pts appetite has been excellent this shift, elevated fsbs results t/o shift-medicating with SSI as ordered, pt has voided multiple times t/o shift to bedside commode after getting Lasix 40mg IV-see output charting, pt has not c/o pain t/o shift, edema to RLE appears to be slightly improved, pt denies SOA/chest pain, LS clear/diminished, pt had family visit this shift, vss, will continue to monitor
--- NOTE | 2021-06-07 18:03 | PC.NURSE ---
1800-pt in bed and resting well at this time, pt has rested intermittently t/o shift, pt got up to bsc today and had very large BM and voiding, pt wearing attends since f/c removed-minimal output noted to attends, pt's appetite has been poor this shift-will eat more when assisted by staff and encouraged to eat, pt noted to be picking at skin-especially face and now has scab to tip of nose, pt remains confused but will obey commands and answering yes and no questions appropriately, vss, will continue to monitor
[2021-06-07 19:43] LABS: Vancomycin,Trough 15.9 ug/mL (5.0-10.0)
--- NOTE | 2021-06-07 21:53 | PC.NURSE ---
Spoke with Eddie from [facility] regarding piggyback to IVF's. Okay to piggyback Cefepime & Vancomycin to D5 1/2NS w/ 20meq of potassium.
[2021-06-08] VITALS (10 sets, daily range): BP systolic 127–153; BP diastolic 66–98; PULSE 69–100; RESP 16–18; TEMP 35.7–37; O2SAT 90–96; BMI 25.9
--- NOTE | 2021-06-08 04:51 | PC.NURSE ---
Spoke with Kristen from [facility] at this time.
[2021-06-08 06:59] LABS: POC Glucose,Bedside 150 (70-110)
--- NOTE | 2021-06-08 08:09 | HMH.ACPN2 ---
Internal Medicine - PN: Subj *Date: 06/08/21 *Time: 08:09 Interval history: Patient indicates that he is not short of breath. He does have some chest discomfort on the left. He states he is hungry for breakfast. Speech is a little more clear today. He does eat rather poorly. Physical therapy notes reviewed. It appears she is trying to work with them. He has been out of bed. Exam Vital signs and Labs for Last 24 Hours: Temp Pulse Resp BP Pulse Ox 98.6 F 78 16 147/95 H 90 L 06/08/21 07:50 06/08/21 07:50 06/08/21 07:50 06/08/21 07:50 06/08/21 07:50 Laboratory Results - last 24 hr 06/07/21 06:38: Vancomycin Trough 21.3 H 06/07/21 06:38: Total Counted 100, Neutrophils % (Manual) 85 H, Lymphocytes % (Manual) 7 L, Monocytes % (Manual) 8, Platelet Estimate Normal, RBC Morphology Normal 06/07/21 16:17: POC Glucose 136 H 06/07/21 19:00: Vancomycin Trough 15.9 H 06/08/21 06:52: POC Glucose 150 H I & O for Last 24 hours: Intake & Output 06/05/21 06/06/21 06/07/21 06/08/21 11:59 11:59 11:59 11:59 Intake Total 1175 / 1175 120 / 120 180 / 180 1109 / 1109 Output Total 3410 / 3410 900 / 900 2450 / 2450 200 / 200 Balance -2235 / -2235 -780 / -780 -2270 / -2270 909 / 909 Weight 194 lb 3.636 oz 187 lb 9 oz 186 lb 8.177 oz 185 lb 10.067 oz - Constitutional no acute distress Comments: Awake and appears comfortable. Lying on his right side. Answers all questions appropriately - *Routine Respiratory Exam Present: CTA bilaterally (Anteriorly and posteriorly) - *Routine Cardiovascular Exam Present: RRR - *Routine Abdominal Exam Present: soft, normoactive bowel sounds. Absent: tenderness - *Routine Extremities Exam Present: amputation (Right below the knee). Absent: edema (Left leg) - *Routine Neurological Exam Present: alert. Absent: normal speech (Improving) Assessment and Plan (1) Cardiac tamponade Status: Acute Category: Medical Code(s): I31.4 - Cardiac tamponade (2) Brain metastases Status: Acute Category: Medical Code(s): C79.31 - Secondary malignant neoplasm of brain (3) Carotid stenosis, bilateral Status: Acute Category: Medical Code(s): I65.23 - Occlusion and stenosis of bilateral carotid arteries (4) Metastatic lung cancer (metastasis from lung to other site) Status: Acute Category: Medical Code(s): C34.90 - Malignant neoplasm of unspecified part of unspecified bronchus or lung (5) Pericardial effusion Status: Acute Category: Medical Code(s): I31.3 - Pericardial effusion (noninflammatory) (6) Carotid artery stenosis Status: Chronic Qualifiers: Laterality: unspecified laterality Qualified Code(s): I65.29 - Occlusion and stenosis of unspecified carotid artery Category: Medical Code(s): I65.29 - Occlusion and stenosis of unspecified carotid artery (7) Chronic obstruct airways disease Status: Chronic Qualifiers: COPD type: chronic bronchitis Chronic bronchitis type: mixed simple and mucopurulent Qualified Code(s): J41.8 - Mixed simple and mucopurulent chronic bronchitis Category: Medical Code(s): J44.9 - Chronic obstructive pulmonary disease, unspecified (8) Coronary arteriosclerosis Status: Chronic Category: Medical Code(s): I25.10 - Atherosclerotic heart disease of [place] coronary artery without angina pectoris (9) Diabetes type 2, controlled Status: Chronic Qualifiers: Diabetes mellitus intermediate accountant insulin use: without alf use Diabetes mellitus complication status: with circulatory complication Diabetes mellitus complication detail: with other circulatory complications Qualified Code(s): E11.59 - Type 2 diabetes mellitus with other circulatory complications Category: Medical Code(s): E11.9 - Type 2 diabetes mellitus without complications (10) History of right below knee amputation Status: Chronic Category: Surgical Code(s): Z89.511 - Acquired absence of right leg below knee
--- NOTE | 2021-06-08 09:03 | HMH.PULMPN ---
Internal Medicine - PN: Subj *Date: 06/08/21 *Time: 11:56 Interval history: No acute respiratory events overnight. Exam - Constitutional Constitutional:: Present: no acute distress, comfortable - HENMT Exam HENMT: Present: normocephalic - Eye Exam Eyes:: Present: normal appearance both eyes and related structures - Neck Exam Neck:: Present: normal visual inspection - Respiratory Exam Respiratory:: Present: no respiratory distress, rhonchi. Absent: rales, wheezing - Cardiovascular Exam Cardiac:: Present: S1, S2 - GI Exam GI:: Present: soft - Skin Exam Skin: Present: warm, no rash - Neurological Exam Neurological: Present: awake, motor sensory deficit. Absent: alert, normal cognition, normal speech, reflexes normal - Extremities Exam Extremities: Present: no cyanosis, no clubbing, no edema Assessment and Plan (1) Cardiac tamponade Status: Acute Category: Medical Code(s): I31.4 - Cardiac tamponade (2) Brain metastases Status: Acute Category: Medical Code(s): C79.31 - Secondary malignant neoplasm of brain (3) Carotid stenosis, bilateral Status: Acute Category: Medical Code(s): I65.23 - Occlusion and stenosis of bilateral carotid arteries (4) Metastatic lung cancer (metastasis from lung to other site) Status: Acute Category: Medical Code(s): C34.90 - Malignant neoplasm of unspecified part of unspecified bronchus or lung (5) Pericardial effusion Status: Acute Category: Medical Code(s): I31.3 - Pericardial effusion (noninflammatory) (6) Carotid artery stenosis Status: Chronic Qualifiers: Laterality: unspecified laterality Qualified Code(s): I65.29 - Occlusion and stenosis of unspecified carotid artery Category: Medical Code(s): I65.29 - Occlusion and stenosis of unspecified carotid artery (7) Chronic obstruct airways disease Status: Chronic Qualifiers: COPD type: chronic bronchitis Chronic bronchitis type: mixed simple and mucopurulent Qualified Code(s): J41.8 - Mixed simple and mucopurulent chronic bronchitis Category: Medical Code(s): J44.9 - Chronic obstructive pulmonary disease, unspecified (8) Coronary arteriosclerosis Status: Chronic Category: Medical Code(s): I25.10 - Atherosclerotic heart disease of [place] coronary artery without angina pectoris (9) Diabetes type 2, controlled Status: Chronic Qualifiers: Diabetes mellitus shelter insulin use: without shelter use Diabetes mellitus complication status: with circulatory complication Diabetes mellitus complication detail: with other circulatory complications Qualified Code(s): E11.59 - Type 2 diabetes mellitus with other circulatory complications Category: Medical Code(s): E11.9 - Type 2 diabetes mellitus without complications (10) History of right below knee amputation Status: Chronic Category: Surgical Code(s): Z89.511 - Acquired absence of right leg below knee (11) Hyperlipidemia Status: Chronic Qualifiers: Hyperlipidemia type: mixed hyperlipidemia Qualified Code(s): E78.2 - Mixed hyperlipidemia Category: Medical Code(s): E78.5 - Hyperlipidemia, unspecified (12) Schizophrenia Status: Chronic Qualifiers: Schizophrenia type: unspecified Qualified Code(s): F20.9 - Schizophrenia, unspecified Category: Medical Code(s): F20.9 - Schizophrenia, unspecified (13) Tobacco dependence syndrome Status: Chronic Category: Medical Code(s): F17.200 - Nicotine dependence, unspecified, uncomplicated (14) Oral candidiasis Status: Acute Category: Medical Code(s): B37.0 - Candidal stomatitis - Assessment and plan all Dx Assessment and Plan for all problems:: #Pneumonia: 71-year-old greater than 04-gdlx-lyto smoking , self reported history of lung cancer, presented as a stroke alert Patient MRI does show MCA that has been managed conservatively, Initial CT and CTA head scan on admission reported to have br
--- NOTE | 2021-06-08 09:26 | HMH.PHACONS ---
- Pharmacy Consult Date: 06/08/21 Time: 09:26 Referring provider: DR. MCKEON Reason for Consult:: VANCOMYCIN LEVEL Allergies and ADEs:: Allergies Allergy/AdvReac Type Severity Reaction Status Date / Time No Known Allergies Allergy Verified 05/18/21 08:41 Home Medications:: Home Medications Medication Instructions Recorded Confirmed Type acetaminophen 500 mg tablet 500 mg PO Q6H PRN #90 tab 05/26/18 05/28/21 Rx Sennosides/Docusate Sodium 1 tab PO HS 09/12/18 06/06/21 History [Sennosides-Docusate Sodium Tab] bisacodyl 10 mg rectal suppository 10 mg [place] DAILY PRN 11/27/19 05/28/21 History albuterol sulfate 90 mcg/actuation 2 puff INHALATION Q4-6H PRN #8.5 g 11/30/20 05/28/21 Rx aerosol inhaler linagliptin 5 mg tablet 5 mg PO DAILY #90 tab 11/30/20 05/28/21 Rx ipratropium 0.5 mg-albuterol 3 mg 3 ml INHALATION Q4-6H PRN #180 ml 05/18/21 05/28/21 Rx (2.5 mg base)/3 mL nebulization soln Aspirin [Low Dose Aspirin EC] 81 mg PO DAILY 05/28/21 05/28/21 History Clopidogrel Bisulfate [Plavix] 75 mg PO DAILY 05/28/21 05/28/21 History Docusate Sodium 100 mg PO DAILY PRN 05/28/21 05/28/21 History Fluoxetine HCl 60 mg PO DAILY 05/28/21 05/28/21 History Fluticasone/Umeclidin/Vilanter 1 puff IH DAILY 05/28/21 06/06/21 History [Trelegy Ellipta] Metformin HCl [Metformin 1000mg 1,000 mg PO BID 05/28/21 05/28/21 History Tablets] Pantoprazole Sodium 40 mg PO HS 05/28/21 05/28/21 History Simvastatin 40 mg PO HS 05/28/21 05/28/21 History Sucralfate [Sucralfate 1gm 1 g PO BID 05/28/21 05/28/21 History Tab] Trazodone HCl 50 mg PO HS 05/28/21 05/28/21 History glipiZIDE [Glucotrol 5mg tablet] 5 mg PO DAILY 05/28/21 05/28/21 History risperiDONE [Risperidone] 1 mg PO HS 05/28/21 05/28/21 History Height: 1.8 m Weight: 84.2 kg Laboratory Results:: Laboratory Results - last 24 hr 06/07/21 06:38: Total Counted 100, Neutrophils % (Manual) 85 H, Lymphocytes % (Manual) 7 L, Monocytes % (Manual) 8, Platelet Estimate Normal, RBC Morphology Normal 06/07/21 16:17: POC Glucose 136 H 06/07/21 19:00: Vancomycin Trough 15.9 H 06/08/21 06:52: POC Glucose 150 H Medical History: Reports:: Anxiety, Cancer (lung), Congestive Heart Failure, Chronic Obstructive Pulmonary Disease (COPD), Coronary Artery Disease, Depression, Diabetes Mellitus Type 2, Hyperlipidemia, Hypertension, Lung Disease Denies:: Diabetes Mellitus Type 1, Internal Pacemaker, MRSA, Seizures Assessment and Plan (1) Cardiac tamponade Status: Acute Category: Medical Code(s): I31.4 - Cardiac tamponade (2) Brain metastases Status: Acute Category: Medical Code(s): C79.31 - Secondary malignant neoplasm of brain (3) Carotid stenosis, bilateral Status: Acute Category: Medical Code(s): I65.23 - Occlusion and stenosis of bilateral carotid arteries (4) Metastatic lung cancer (metastasis from lung to other site) Status: Acute Category: Medical Code(s): C34.90 - Malignant neoplasm of unspecified part of unspecified bronchus or lung (5) Pericardial effusion Status: Acute Category: Medical Code(s): I31.3 - Pericardial effusion (noninflammatory) (6) Carotid artery stenosis Status: Chronic Qualifiers: Laterality: unspecified laterality Qualified Code(s): I65.29 - Occlusion and stenosis of unspecified carotid artery Category: Medical Code(s): I65.29 - Occlusion and stenosis of unspecified carotid artery (7) Chronic obstruct airways disease Status: Chronic Qualifiers: COPD type: chronic bronchitis Chronic bronchitis type: mixed simple and mucopurulent Qualified Code(s): J41.8 - Mixed simple and mucopurulent chronic bronchitis Category: Medical Code(s): J44.9 - Chronic obstructive pulmonary disease, unspecified (8) Coronary arteriosclerosis Status: Chronic Category: Medical Code(s): I25.10 - Atherosclerotic heart disease of [place] coronary artery without angina pectoris (9) Diabetes type 2, control
--- NOTE | 2021-06-08 09:53 | DIET.NUTRFU ---
Addendum entered by Crystal Terrazas RD, LD 06/08/21 10:29: Yenifereint was also started on Nystatin for thrush- this maybe affecting intake. Original Note: Patient continues to have poor po intake, nursing noting 25% at most meals. HIGH SCHOOL ASSISTANT PRINCIPAL upgraded diet to MSOFT ground 06/07 with nectar thick liquids. Glucerna in place to help meet nutritional needs. Noted weight loss 13# from 06/03-06/07 with CBW of 186#. He has poor prognosis with lung CA and mets to brain. Comfort measures were reviewed with family, they are currently pursuing placement and possible oncology followup at . Will continue to encourage po intake. IV fluid are in place and labs reviewed:Na slightly depleted at 133L and glucose elevated at 163.
[2021-06-08 11:39] LABS: POC Glucose,Bedside 136 (70-110)
[2021-06-08 12:06] LABS: POC Glucose,Bedside 155 (70-110)
[2021-06-08 12:06] LABS: POC Glucose,Bedside 203 (70-110)
--- NOTE | 2021-06-08 13:42 | HMH.DCSUM ---
General - General Admission date:: 05/28/21 Discharge date: 06/08/21 HPI HPI: this pt who lives at home and had prev been in ecf with hx of lung cancer in past - pt with altered mental status and dec use of rt upper ext - pt has not felt well over the last week with dec activity and po intake -pt was seen in the ed -71 yo male w/ hx CAD s/p PCI, carotid artery stenosis, DM, HTN, HLD, right BKA, schizophrenia, dementia, presents for right sided weakness and numbness. LKN 1100 on 05/28/21. Limited history from patient 2/2 AMS. Denies any pain. Motions that right hand is weak. Reportedly EMS called to patient's residence after ex- noticed patient right arm weak and numb. No other family at bedside to provide further history. Kiera (ex- of pt) called but no answer on phone. Jhonatan (daughter of Kiera) said patient facial droop is new and right arm weakness is new. No history of strokes dx includes but not limited to acs, lvo, ich, metastasis. presents with altered mental status, rue motor/sensory deficit. protecting airway. wbc 20k. ct head shows bilateral cerebral nodules w/ vasogenic edema concerning for metastatic lesions. no midline shift. cta h/n with >95% narrowing of left carotid artery, 70-80% narrowing of right carotid artery. given 10 mg decadron in ed. cxr shows findings consistent with right lung malignancy. spoke with jhonatan (daughter of exwife) and kiera (exwife of pt who is primary blast setter of pt) who gave me Rudy's contact info (brother of pt) who i tried to reach out to but did not answer telephone. jhonatan and kiera en route to [facility] ed. spoke with joanne duarte at regarding transfer for metastatic cancer evaluation and treatment, he accepted patient but on divert, no beds. plan to admit patient to [facility] pending availability for transfer to . spoke with dr. fitzpatrick and pt admitted in stable condition. pt admitted for iv steroids and supportive care - discussed with family- Hospital Course Hospital Course: Initially patient was placed on Lovenox n and Decadron with IV fluids for treatment for a stroke and possible metastatic brain cancer.. Dr. Fitzpatrick discussed with Dr. Briseno at the [facility] patient's plan of care. Dr. Briseno recommended an increase in sedation if needed for MRI of the Brain. Dr. Fitzpatrick spoke with power of corporate attorney about patient's poor prognosis and recommendations for a different plan of care and a DNR. Power of corporate attorney stated she wanted to discuss this with family. At this point Dr. Medina was requested by the family to resume care of the patient. Patient had a sudden onset of diaphoresis and appeared short of breath on 06/01/2021. The patient was noted to have pulse paradoxus. Echocardiogram revealed questionable cardiac tamponade. At this time the patient was very confused and unable to answer questions. He appeared to be having some slight respiratory distress. Following is the assessment and plan by, cardiology: Assessment and Plan for all problems:: 1. This is a 71-year-old gentleman who was initially admitted to the hospital a questionable stroke versus brain mets. He is currently awaiting transfer to [facility]. This is being managed by his primary team. Will defer. 2. The patient had sudden onset of shortness of breath and diaphoresis today. He became tachycardic and an EKG was obtained. It is unclear whether or not this is atrial flutter versus a PAT. He does have organized atrial activity but as mentioned before we are not sure if this is flutter or PAT because of low voltage. 3. The patient had an echocardiogram 2 days ago which showed an ejection fraction of 45% and a moderate sized pericardial effusion. Cardiac tamponade could not be excluded. The patient did have pulses paradoxus on exam so echo was called stat to come and repeat the study. The patient does have right atrial and ventricle collapse consistent with cardiac tamponade. The patient will have a p
--- NOTE | 2021-06-08 15:45 | PC.NURSE ---
Report called to [facility] and ambulance notified for transport
[2021-06-08 16:46] LABS: POC Glucose,Bedside 124 (70-110)
--- NOTE | 2021-06-08 18:28 | PC.NURSE ---
Pt is alert to self and place. He is able to follow commands. He remains on RA w/O2 measuring > 88%. Glucose was 137 and 124 at checks, no insulin coverage required. Bruising noted to lower abdomen, scattered scabbing to forehead, bue, and lle. Right arm flaccid, rbka. He's had a large bm this shift. Ambulance will be here in the morning at 0600 to transport pt to [facility]. Report will need to be called to [phone] before transport.
[2021-06-09] VITALS: BP 132/68; PULSE 72; RESP 16; TEMP 36.6; O2SAT 93
[2021-06-09 03:53] VITALS: BP 132/65; PULSE 80; RESP 17; TEMP 36.7; O2SAT 97
--- NOTE | 2021-06-09 04:03 | PC.NURSE ---
Pt has slept well most of the shift. No acute issues or distress. Pt turning himself in the bed. Remains incontinent, voiding per attends. Good UOP noted this shift. Brigid area and bottom redenned, brigid care performed and powder used on redenned areas. Scattered scabs remain to mendy shoulders, torso, and back, and intermittenly bleed. VSS. Will continue to monitor.
--- NOTE | 2021-06-09 04:08 | PC.NURSE ---
pt dislodged iv at this time by rolling over in the bed. pt is being d/c this am and will be leaving to go to [facility] at 0600 by ems. no new iv started at this time.
[2021-06-09 05:00] VITALS: BMI 25.7
[2021-06-09 06:11] VITALS: PULSE 68; O2SAT 95
--- NOTE | 2021-06-09 06:19 | PC.NURSE ---
0500 - called report to DARIO Moreira at [facility] stroke unit.
--- NOTE | 2021-06-09 06:20 | PC.NURSE ---
0515 - spoke to Kristen Pickering regarding patients transfer.
--- NOTE | 2021-06-09 06:20 | PC.NURSE ---
0030 - received call from [facility] house [employer] that [facility] was not going to be able to transport patient at [facility] at 0600 like originally planned. [facility] reported there are two transfers to [place] ahead of this patient, and its unclear if a truck will be available today . 3079 - notified Kristen Pickering of this. Will notify MD and Care Mgmt on am rounds.
[2021-06-09 06:45] LABS: MANUAL DIFFERENTIAL MANUAL DIFFERENTIAL (MANUAL DIFF)
--- NOTE | 2021-06-09 06:55 | PC.NURSE ---
0640 - pt started vomiting after morning breathing tx. IM zofran given. Pt received bath and bed change. FSBS 104. Will continue to monitor.
[2021-06-09 07:00] LABS: POC Glucose,Bedside 104 (70-110)
[2021-06-09 07:03] LABS: Basophils % 0.2 % (0.1-2.0); Eosinophils # 0.7 K/mm3 (0.0-0.4); Eosinophils % 3.5 % (0.1-12.0); Hematocrit 48.6 % (42.0-52.0); Hemoglobin 15.2 g/dL (14.1-18.0); Lymphocytes % 4.8 % (10-50); Mean Corpuscular HGB Conc 31.4 g/dL (31.8-35.4); Mean Corpuscular Hemoglobin 28.5 pg (27.0-31.2); Mean Corpuscular Volume 90.9 fl (80-94); Mean Platelet Volume 8.5 fl (7.4-10.4); Monocytes # 0.9 K/mm3 (0.1-1.0); Monocytes % 4.5 % (1.7-9.3); Neutrophils # 17.9 K/mm3 (1.8-7.8); Neutrophils % 87.1 % (37.0-80.0); Platelet Count 262 K/mm3 (142-424); Red Blood Count 5.35 M/mm3 (4.60-6.20); Red Cell Distribution Width 15.5 % (11.5-17.5); White Blood Count 20.6 K/mm3 (4.8-10.8)
[2021-06-09 07:06] LABS: Chloride 100 mmol/L (98-107); Potassium 4.1 mmoL/L (3.5-5.1); Sodium 131 mmol/L (136-145)
[2021-06-09 07:09] LABS: Anion Gap 8.1 mEq/L (5-15); Blood Urea Nitrogen 21 mg/dl (9-20); Carbon Dioxide 27 mmol/L (22.0-30.0); Creatinine Clearance Estimated 77 mL/min (50-200); Estimated Glomerular Filt Rate 111 ml/min (>60); GFR (African American) 134 ML/MIN (>60)
[2021-06-09 07:10] LABS: Calcium 8.5 mg/dl (8.4-10.2); Glucose 114 mg/dl (74-100)
[2021-06-09 08:00] VITALS: BP 90/55; PULSE 89; RESP 18; TEMP 36.3; O2SAT 92
--- NOTE | 2021-06-09 08:35 | PC.NURSE ---
Opened and scanned pt's moring meds then patient started vomiting. Meds wated and held.
--- NOTE | 2021-06-09 08:47 | HMH.ACPN2 ---
Internal Medicine - PN: Subj *Date: 06/09/21 *Time: 08:47 Exam Vital signs and Labs for Last 24 Hours: Temp Pulse Resp BP Pulse Ox 98.1 F 89 18 90/55 L 92 L 06/09/21 03:53 06/09/21 08:00 06/09/21 08:00 06/09/21 08:00 06/09/21 08:00 Laboratory Results - last 24 hr 06/07/21 10:43: POC Glucose 155 H 06/07/21 20:19: POC Glucose 203 H 06/08/21 11:23: POC Glucose 136 H 06/08/21 16:37: POC Glucose 124 H 06/09/21 06:06: WBC 20.6 H*, RBC 5.35, Hgb 15.2, Hct 48.6, MCV 90.9, MCH 28.5, MCHC 31.4 L, RDW 15.5, Plt Count 262, MPV 8.5, Neut % (Auto) 87.1 H, Lymph % (Auto) 4.8 L, [place] % (Auto) 4.5, Eos % (Auto) 3.5, Baso % (Auto) 0.2, Neut # (Auto) 17.9 H, Lymph # (Auto) 1.0, [place] # (Auto) 0.9, Eos # (Auto) 0.7 H, Baso # (Auto) 0.0 06/09/21 06:06: Sodium 131 L, Potassium 4.1, Chloride 100, Carbon Dioxide 27, Anion Gap 8.1, BUN 21 H, Creatinine 0.70, Estimated Creat Clear 77, Estimated GFR 111, Est GFR ( Amer) 134, Glucose 114 H, Calcium 8.5 06/09/21 06:47: POC Glucose 104 I & O for Last 24 hours: Intake & Output 06/06/21 06/07/21 06/08/21 06/09/21 23:59 23:59 23:59 23:59 Intake Total 60 / 60 1109 / 1109 1556 398 / 398 Output Total 2099 / 2650 1450 / 1450 Balance -2040 / -2590 -341 / -341 1551954 398 / 398 Weight 85.077 kg 84.6 kg 84.2 kg 83.189 kg Assessment and Plan (1) Cardiac tamponade Status: Acute Category: Medical Code(s): I31.4 - Cardiac tamponade (2) Brain metastases Status: Acute Category: Medical Code(s): C79.31 - Secondary malignant neoplasm of brain (3) Carotid stenosis, bilateral Status: Acute Category: Medical Code(s): I65.23 - Occlusion and stenosis of bilateral carotid arteries (4) Metastatic lung cancer (metastasis from lung to other site) Status: Acute Category: Medical Code(s): C34.90 - Malignant neoplasm of unspecified part of unspecified bronchus or lung (5) Pericardial effusion Status: Acute Category: Medical Code(s): I31.3 - Pericardial effusion (noninflammatory) (6) Carotid artery stenosis Status: Chronic Qualifiers: Laterality: unspecified laterality Qualified Code(s): I65.29 - Occlusion and stenosis of unspecified carotid artery Category: Medical Code(s): I65.29 - Occlusion and stenosis of unspecified carotid artery (7) Chronic obstruct airways disease Status: Chronic Qualifiers: COPD type: chronic bronchitis Chronic bronchitis type: mixed simple and mucopurulent Qualified Code(s): J41.8 - Mixed simple and mucopurulent chronic bronchitis Category: Medical Code(s): J44.9 - Chronic obstructive pulmonary disease, unspecified (8) Coronary arteriosclerosis Status: Chronic Category: Medical Code(s): I25.10 - Atherosclerotic heart disease of [place] coronary artery without angina pectoris (9) Diabetes type 2, controlled Status: Chronic Qualifiers: Diabetes mellitus alf insulin use: without assistant branch manager use Diabetes mellitus complication status: with circulatory complication Diabetes mellitus complication detail: with other circulatory complications Qualified Code(s): E11.59 - Type 2 diabetes mellitus with other circulatory complications Category: Medical Code(s): E11.9 - Type 2 diabetes mellitus without complications (10) History of right below knee amputation Status: Chronic Category: Surgical Code(s): Z89.511 - Acquired absence of right leg below knee (11) Hyperlipidemia Status: Chronic Qualifiers: Hyperlipidemia type: mixed hyperlipidemia Qualified Code(s): E78.2 - Mixed hyperlipidemia Category: Medical Code(s): E78.5 - Hyperlipidemia, unspecified (12) Schizophrenia Status: Chronic Qualifiers: Schizophrenia type: unspecified Qualified Code(s): F20.9 - Schizophrenia, unspecified Category: Medical Code(s): F20.9 - Schizophrenia, unspecified (13) Tobacco dependence syndrome Status: Chronic Category: Medical Code(s): F17.200
[2021-06-09 09:07] LABS: Eosinophils % 5 % (0-3); Lymphocytes % 6 % (10-50); Monocytes % 2 % (2-9); Neutrophils % 87 % (42-76); Total Cells Counted 100
--- NOTE | 2021-06-09 09:07 | HMH.PULMPN ---
Internal Medicine - PN: Subj *Date: 06/09/21 *Time: 09:07 Assessment and Plan (1) Cardiac tamponade Status: Acute Category: Medical Code(s): I31.4 - Cardiac tamponade (2) Brain metastases Status: Acute Category: Medical Code(s): C79.31 - Secondary malignant neoplasm of brain (3) Carotid stenosis, bilateral Status: Acute Category: Medical Code(s): I65.23 - Occlusion and stenosis of bilateral carotid arteries (4) Metastatic lung cancer (metastasis from lung to other site) Status: Acute Category: Medical Code(s): C34.90 - Malignant neoplasm of unspecified part of unspecified bronchus or lung (5) Pericardial effusion Status: Acute Category: Medical Code(s): I31.3 - Pericardial effusion (noninflammatory) (6) Carotid artery stenosis Status: Chronic Qualifiers: Laterality: unspecified laterality Qualified Code(s): I65.29 - Occlusion and stenosis of unspecified carotid artery Category: Medical Code(s): I65.29 - Occlusion and stenosis of unspecified carotid artery (7) Chronic obstruct airways disease Status: Chronic Qualifiers: COPD type: chronic bronchitis Chronic bronchitis type: mixed simple and mucopurulent Qualified Code(s): J41.8 - Mixed simple and mucopurulent chronic bronchitis Category: Medical Code(s): J44.9 - Chronic obstructive pulmonary disease, unspecified (8) Coronary arteriosclerosis Status: Chronic Category: Medical Code(s): I25.10 - Atherosclerotic heart disease of [place] coronary artery without angina pectoris (9) Diabetes type 2, controlled Status: Chronic Qualifiers: Diabetes mellitus termite exterminator insulin use: without senior living use Diabetes mellitus complication status: with circulatory complication Diabetes mellitus complication detail: with other circulatory complications Qualified Code(s): E11.59 - Type 2 diabetes mellitus with other circulatory complications Category: Medical Code(s): E11.9 - Type 2 diabetes mellitus without complications (10) History of right below knee amputation Status: Chronic Category: Surgical Code(s): Z89.511 - Acquired absence of right leg below knee (11) Hyperlipidemia Status: Chronic Qualifiers: Hyperlipidemia type: mixed hyperlipidemia Qualified Code(s): E78.2 - Mixed hyperlipidemia Category: Medical Code(s): E78.5 - Hyperlipidemia, unspecified (12) Schizophrenia Status: Chronic Qualifiers: Schizophrenia type: unspecified Qualified Code(s): F20.9 - Schizophrenia, unspecified Category: Medical Code(s): F20.9 - Schizophrenia, unspecified (13) Tobacco dependence syndrome Status: Chronic Category: Medical Code(s): F17.200 - Nicotine dependence, unspecified, uncomplicated (14) Oral candidiasis Status: Acute Category: Medical Code(s): B37.0 - Candidal stomatitis - Assessment and plan all Dx Assessment and Plan for all problems:: #Pneumonia: 71-year-old greater than 75-onof-qebx smoking , self reported history of lung cancer, presented as a stroke alert Patient MRI does show MCA that has been managed conservatively, Initial CT and CTA head scan on admission reported to have brain lesions consistent with metastatic disease, however subsequent MRI did not comment on the presence of metastatic lesions, but 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 CT chest RML PNM / Lung mass. Initiated on cefepime, Improving, oxygenation room air. Patient also having bacteremia, managed by primary team. Interval Update: Patient continued to remain on room air. No worsening respiratory distress. Plan: -Countinue Cefepime IV x 7 days for Pneumonia. No need for dexamethasone from pulmonary standpoint -DuoNebs every 6 hours scheduled along with budesonide every 12 scheduled -Secondary stroke management as per primary team -Follow with cardiology recommendations -status post pericardiocentesis for tamponade
[2021-06-09 09:08] LABS: Platelet Estimate Normal; RBC Morphology Normal
--- NOTE | 2021-06-09 09:34 | HMH.ACPN2 ---
Internal Medicine - PN: Subj *Date: 06/09/21 *Time: 09:34 Interval history: This morning patient states he has vomited. There was vomit on his bed and on the floor. He was wrapped up in the bed sheets without any clothes on. He does seem a bit confused this morning. According to nursing notes he did vomit after his breathing treatment and was given some Zofran. He was supposed to be transferred to [facility] yesterday. Exam Vital signs and Labs for Last 24 Hours: Temp Pulse Resp BP Pulse Ox 97.4 F L 89 18 90/55 L 92 L 06/09/21 08:00 06/09/21 08:00 06/09/21 08:00 06/09/21 08:00 06/09/21 08:00 Laboratory Results - last 24 hr 06/07/21 10:43: POC Glucose 155 H 06/07/21 20:19: POC Glucose 203 H 06/08/21 11:23: POC Glucose 136 H 06/08/21 16:37: POC Glucose 124 H 06/09/21 06:06: WBC 20.6 H*, RBC 5.35, Hgb 15.2, Hct 48.6, MCV 90.9, MCH 28.5, MCHC 31.4 L, RDW 15.5, Plt Count 262, MPV 8.5, Neut % (Auto) 87.1 H, Lymph % (Auto) 4.8 L, [place] % (Auto) 4.5, Eos % (Auto) 3.5, Baso % (Auto) 0.2, Neut # (Auto) 17.9 H, Lymph # (Auto) 1.0, [place] # (Auto) 0.9, Eos # (Auto) 0.7 H, Baso # (Auto) 0.0, Total Counted 100, Neutrophils % (Manual) 87 H, Lymphocytes % (Manual) 6 L, Monocytes % (Manual) 2, Eosinophils % (Manual) 5 H, Platelet Estimate Normal, RBC Morphology Normal 06/09/21 06:06: Sodium 131 L, Potassium 4.1, Chloride 100, Carbon Dioxide 27, Anion Gap 8.1, BUN 21 H, Creatinine 0.70, Estimated Creat Clear 77, Estimated GFR 111, Est GFR ( Amer) 134, Glucose 114 H, Calcium 8.5 06/09/21 06:47: POC Glucose 104 I & O for Last 24 hours: Intake & Output 06/06/21 06/07/21 06/08/21 06/09/21 11:59 11:59 11:59 11:59 Intake Total 120 / 120 180 / 180 1877 / 1877 1067 / 1067 Output Total 900 / 900 2450 / 2450 200 / 200 Balance -780 / -780 -2270 / -2270 1677 / 1677 1067 / 1067 Weight 187 lb 9 oz 186 lb 8.177 oz 185 lb 10.067 oz 183 lb 6.4 oz - Constitutional no acute distress - *Routine Respiratory Exam Present: decreased breath sounds, CTA bilaterally - *Routine Cardiovascular Exam Present: RRR - *Routine Abdominal Exam Present: soft, normoactive bowel sounds. Absent: tenderness - *Routine Extremities Exam Absent: cyanosis, clubbing, edema - *Routine Skin Exam Present: warm. Absent: rash - *Routine Neurological Exam Present: altered mental status Assessment and Plan (1) Cardiac tamponade Status: Acute Category: Medical Code(s): I31.4 - Cardiac tamponade (2) Brain metastases Status: Acute Category: Medical Code(s): C79.31 - Secondary malignant neoplasm of brain (3) Carotid stenosis, bilateral Status: Acute Category: Medical Code(s): I65.23 - Occlusion and stenosis of bilateral carotid arteries (4) Metastatic lung cancer (metastasis from lung to other site) Status: Acute Category: Medical Code(s): C34.90 - Malignant neoplasm of unspecified part of unspecified bronchus or lung (5) Pericardial effusion Status: Acute Category: Medical Code(s): I31.3 - Pericardial effusion (noninflammatory) (6) Carotid artery stenosis Status: Chronic Qualifiers: Laterality: unspecified laterality Qualified Code(s): I65.29 - Occlusion and stenosis of unspecified carotid artery Category: Medical Code(s): I65.29 - Occlusion and stenosis of unspecified carotid artery (7) Chronic obstruct airways disease Status: Chronic Qualifiers: COPD type: chronic bronchitis Chronic bronchitis type: mixed simple and mucopurulent Qualified Code(s): J41.8 - Mixed simple and mucopurulent chronic bronchitis Category: Medical Code(s): J44.9 - Chronic obstructive pulmonary disease, unspecified (8) Coronary arteriosclerosis Status: Chronic Category: Medical Code(s): I25.10 - Atherosclerotic heart disease of [place] coronary artery without angina pectoris (9) Diabetes type 2, controlled Status: Chronic Qualifiers: Diabetes mellitus superintendent marine oil terminal insulin use: wit
== END 2021-06-09 09:02 | DRG 64 ==
LOC: ER 21:35 → ICU 22:51 → 2ND 06-04 17:44
PROVIDERS: Internal Medicine Pulmonary Disease; Nurse Practitioner Family; Admitting Provider Emergency Medicine; Emergency Provider Student in an Organized Health Care Education/Training Program; Visit Provider Family Medicine
DX: I63.9 Cerebral infarction, unspecified (principal); G93.6 Cerebral edema; J18.9 Pneumonia, unspecified organism; C34.90 Malignant neoplasm of unspecified part of unspecified bronchus or lung; I31.4 Cardiac tamponade; C79.31 Secondary malignant neoplasm of brain; F20.89 Other schizophrenia; B37.0 Candidal stomatitis; J91.0 Malignant pleural effusion; R29.707 NIHSS score 7; I65.23 Occlusion and stenosis of bilateral carotid arteries; E11.9 Type 2 diabetes mellitus without complications; Z89.511 Acquired absence of right leg below knee; F17.210 Nicotine dependence, cigarettes, uncomplicated; J44.9 Chronic obstructive pulmonary disease, unspecified; R29.810 Facial weakness; E78.5 Hyperlipidemia, unspecified; F41.9 Anxiety disorder, unspecified; I25.10 Atherosclerotic heart disease of native coronary artery without angina pectoris; F32.A Depression, unspecified; M19.90 Unspecified osteoarthritis, unspecified site; Z95.5 Presence of coronary angioplasty implant and graft; I10 Essential (primary) hypertension; Z79.84 Long term (current) use of oral hypoglycemic drugs
CPT/HCPCS: 33017; 36415; 70371; 70450; 70496; 70498; 70551; 71045; 71250; 80048; 80053; 80202; 81001; 82042; 82945; 82962; 83605; 83615; 83735; 84155; 84443; 84484; 85007; 85014; 85018; 85025; 85048; 85049; 85610; 85730; 87040; 87070; 87077; 87205; 88112; 88305; 88342; 89051; 92526; 92610; 92611; 93005; 93306; 93308; 94640; 94761; 97163; 97166; 97530; 99285; C1725; C9803; J2405; J3370; Q9967; U0003; U0005